=== PATIENT | female | born 1945 | race Caucasian/White ===

== ENCOUNTER 2019-10-01 11:24 | Outpatient (CLI) | payer MEDICARE, SELFPAY ==
--- NOTE | 2019-10-01 11:29 | XR_ITS ---
WS: [id number] PROCEDURE: XR chest 2V* [id number] CLINICAL INFORMATION: COUGH COMPARISON: September 27, 2017 FINDINGS: Heart: Normal cardiac silhouette. Aortic calcification. Lungs: Mild chronic emphysematous changes. No acute pulmonary infiltrates. Calcified granuloma left l ower lobe. Bones: Chronic left posterior rib fractures with callus formation. XR/XR chest 2V* [id number] IMPRESSION: No acute chest findings.
== END 2019-10-01 11:25 | disposition home or self-care (01) ==
LOC: RAD 11:29
PROVIDERS: Family Provider Family Medicine; PCP Family Medicine; Visit Provider Family Medicine
DX: R05 Cough (principal)
CPT/HCPCS: 71046

== ENCOUNTER 2019-12-26 13:09 | Outpatient (CLI) | payer MEDICARE, SELFPAY ==
--- NOTE | 2019-12-26 13:16 | XR_ITS ---
WS: [id number] SHOULDER RIGHT TECHNIQUE: 3 views of the right shoulder CLINICAL INFORMATION: SHOULDER PAIN, RIGHT COMPARISON: None. FINDINGS: Normal acromioclavicular joint. Normal glenohumeral joint. Acromion is normal in appearance. Normal g lenoid. No evidence of acute fracture dislocation. Mild rotator cuff arthropathy. XR/XR shoulder RT min 2V* [id number] IMPRESSION: No acute right shoulder findings. Mild rotator cuff arthropathy.
== END 2019-12-26 13:10 | disposition home or self-care (01) ==
PROVIDERS: Family Provider Family Medicine; PCP Family Medicine; Visit Provider Family Medicine
DX: M25.511 Pain in right shoulder (principal); M12.811 Other specific arthropathies, not elsewhere classified, right shoulder
CPT/HCPCS: 73030

== ENCOUNTER 2020-01-22 12:46 | Outpatient (CLI) | payer MEDICARE, SELFPAY ==
--- NOTE | 2020-01-22 13:00 | MR_ITS ---
WS: [id number] MRI RIGHT SHOULDER HISTORY: M25.511 Pain in right shoulder COMPARISON: Radiographs 12/26/2019 TECHNIQUE: Multiplanar sequences of the shoulder joint are submitted. Increased T2 signal through the AC ligament. There is soft tissue hypertrophy and bone hypertrophy wi th encroachment upon the supraspinatus tendon and muscle over the humeral head. There are large osteo phytes extending towards the rotator cuff. Small amount of fluid in the subacromial and subdeltoid bu rsa. Partial, articular surface tear of the supraspinatus tendon over the humeral head. There is also fray ing of the tendon along the bursal surface. Very mild atrophy without edema in the supraspinatus musc le. Markedly thickened subscapularis tendon but it is intact. Biceps tendon is partially subluxed fro m the bicipital groove and thickened and edematous. No infraspinatus tendon tear. There is a large subscapular recess effusion with loose bodies. Severe degenerative changes involving the humeral head. Loss of cartilage with osteophyte formation and deformity. Marked narrowing of the glenohumeral joint. Normal labrum is not identified. MR/MR shoulder RT wo con* [id number] IMPRESSION: 1. Severe degenerative changes at the shoulder joint. 2. Loss of cartilage with extensive subchondral cystic changes and osteophytes over the humeral head with high riding humeral head. 3. Abnormal glenohumeral joint with loss of the normal labrum and cartilage. 4. Moderate AC joint hypertrophy with encroachment upon the supraspinatus tend on and muscle. 5. Partial articular surface tear supraspinatus tendon over the humeral head. 6. Mild atrophy supraspinatus muscle. 7. Partially subluxed biceps tendon from the bicipital groove. 8. Marked thickening of the subscapularis tendon and very difficult to see dis tally. 9. Large joint effusion with small loose bodies with extension into the subsca pularis recess.
== END 2020-01-22 12:47 | disposition home or self-care (01) ==
LOC: RADSHAW 12:49
PROVIDERS: PCP Family Medicine; Visit Provider Specialist
DX: S46.911A Strain of unspecified muscle, fascia and tendon at shoulder and upper arm level, right arm, initial encounter (principal); X58.XXXA Exposure to other specified factors, initial encounter; M25.411 Effusion, right shoulder
CPT/HCPCS: 73221

== ENCOUNTER 2020-02-23 06:00 | Outpatient (RCR) | payer MEDICARE, SELFPAY | END 2020-03-03 23:59 | disposition home or self-care (01) | LOC: SPT 06:00 | PROVIDERS: PCP Family Medicine; Referring Provider Specialist; Visit Provider Specialist | DX: M19.011 Primary osteoarthritis, right shoulder (principal) | CPT/HCPCS: 97110; 97162 ==

== ENCOUNTER 2020-03-04 06:00 | Outpatient (RCR) | payer MEDICARE, SELFPAY | END 2020-04-03 23:59 | disposition home or self-care (01) | LOC: SPT 06:00 | PROVIDERS: PCP Family Medicine; Referring Provider Specialist; Visit Provider Specialist | DX: M19.011 Primary osteoarthritis, right shoulder (principal) | CPT/HCPCS: 97110 ==

== ENCOUNTER 2020-08-06 10:48 | Outpatient (CLI) | payer MEDICARE, SELFPAY ==
--- NOTE | 2020-08-06 11:01 | XR_ITS ---
WS: [id number] KUB, AP view, 08/06/2020 Clinical Data: ACUTE DIVERTICULITIS Comparison: KUB, 10/18/2017. Findings: There is air in the small bowel and colon but no dilatation. There is fecal material throughout the c olon. No abnormal intra-abdominal masses or calcifications are seen. There are phleboliths in the true pelv is. The bladder is full. XR/XR abdomen 1V* [id number] Impression: Mild generalized ileus.
== END 2020-08-06 10:49 | disposition home or self-care (01) ==
LOC: RAD 10:51
PROVIDERS: PCP Family Medicine; Visit Provider Nurse Practitioner Family
DX: K57.92 Diverticulitis of intestine, part unspecified, without perforation or abscess without bleeding (principal)
CPT/HCPCS: 74018

== ENCOUNTER 2020-08-30 17:44 | Emergency (ER) | payer MEDICARE, SELFPAY ==
[2020-08-30 17:51] VITALS: BP 159/94; PULSE 69; RESP 16; TEMP 36.3; O2SAT 97; BMI 24.2
[2020-08-30 20:03] LABS: Basophils # 0.1 10^3/uL (0.0-0.1); Basophils % 0.7 %; Eosinophils # 0.4 10^3/uL (0.0-0.8); Eosinophils % 4.6 %; Hematocrit 45.5 % (37.0-47.0); Hemoglobin 14.6 g/dL (11.5-15.3); Lymphocytes # 3.2 10^3/uL (0.8-4.8); Lymphocytes % 36.7 %; Mean Corpuscular HGB Conc 32.1 g/dL (30.0-36.0); Mean Corpuscular Hemoglobin 29.3 pg (28.0-34.0); Mean Corpuscular Volume 91.4 fL (81-99); Mean Platelet Volume 9.7 fL (7.4-10.4); Monocytes # 0.5 10^3/uL (0.2-0.9); Monocytes % 5.9 %; Neutrophils # 4.57 10^3/uL (1.8-7.7); Neutrophils % 51.8 %; Nucleated Red Blood Cells % 0 %; Platelet Count 256 10^3/cmm (130-400); Red Blood Count 4.98 10^6/uL (4.1-5.3); Red Cell Distribution Width 12.8 % (12.1-15.1); White Blood Count 8.8 10^3/uL (4.0-10.0)
[2020-08-30 20:19] LABS: Alanine Aminotransferase 13 U/L (0-33); Albumin Level 4.5 g/dL (3.5-5.2); Alkaline Phosphatase 80 IU/L (35-105); Anion Gap 14.2 (5-19); Aspartate Amino Transferase 18 U/L (0-32); Blood Urea Nitrogen 15 mg/dL (8-23); Calcium 9.1 mg/dL (8.5-10.5); Carbon Dioxide 28 mmol/L (22-29); Chloride 105 mmol/L (98-107); Globulin 2.6 g/dL (1.3-4.6); Glucose 92 mg/dL (65-115); Lipase 26 U/L (13-60); Osmolality Calculated 296 mOsm/kg (285-295); Potassium 4.2 mmol/L (3.5-5.1); Sodium 143 mmol/L (136-145); Total Bilirubin 0.5 mg/dL (0.15-1.2); Total Protein 7.1 g/dL (6.6-8.7)
[2020-08-30 22:27] VITALS: PULSE 67; RESP 16; O2SAT 95
--- NOTE | 2020-08-30 22:28 | CTR_ITS ---
PROCEDURE INFORMATION: Exam: CT Abdomen And Pelvis With Contrast Exam date and time: 08/30/2020 10:46 PM Age: 74 years old Clinical indication: Abdominal pain; Generalized; Prior surgery; Surgery type: , appy, hyst, stomach; Patient HX: Abd pain x 3 weeks, recently treated for diverticulitis- meds gave her diarrhea. PT now C/O constipation TECHNIQUE: Imaging protocol: Computed tomography of the abdomen and pelvis with contrast. Radiation optimization: All CT scans at this facility use at least one of these dose optimization techniques: automated exposure control; mA and/or kV adjustment per patient size (includes targeted exams where dose is matched to clinical indication); or iterative reconstruction. Contrast material: OMNI 300; Contrast volume: 95 ml; Contrast route: INTRAVENOUS (IV); COMPARISON: CT abdomen pelvis w con* [id number] 08/31/2017 11:52 AM RADIATION DOSE METRICS: Total DLP (mGy-cm): 1266.56 FINDINGS: Liver: Normal. No mass. Gallbladder and bile ducts: Stable gallstone in the gallbladder. Pancreas: Normal. No ductal dilation. Spleen: Normal. No splenomegaly. Adrenal glands: Normal. No mass. Kidneys and ureters: Normal. No hydronephrosis. Stomach and bowel: Unremarkable. No obstruction. No mucosal thickening. Appendix: No evidence of appendicitis. Intraperitoneal space: Unremarkable. No free air. No significant fluid collection. Vasculature: Calcification of the abdominal aorta and/or iliac arteries consistent with atherosclerotic vessel disease. One or more calcified pelvic phleboliths. Lymph nodes: Unremarkable. No enlarged lymph nodes. Urinary bladder: Unremarkable as visualized. Reproductive: Stable hysterectomy. Bones/joints: Grade 1 anterior non-spondylitic spondylolisthesis of L4 on L5 with central spinal stenosis and prominent facet degenerative changes. Soft tissues: Unremarkable. CT/CT abdomen pelvis w con* [id number] IMPRESSION: Stable gallstone in the gallbladder. Radiation Dose CTDIVOL = (mGy): DLP = 1266.56 (mGy-cm)
--- NOTE | 2020-08-30 22:36 | W.ED.ABDPA2 ---
HPI - Abdominal Pain General: Chief Complaint: Abdominal Pain Stated Complaint: ABD PAIN FOR 3 WKS Time Seen by Provider: 08/30/20 22:27 Source: patient Mode of arrival: ambulatory Limitations: no limitations History of Present Illness: HPI narrative: 74-year-old female states she been having abdominal pain over the last 3 weeks. She states is been diffuse in nature and rates it a 6 out of 10. She states she supposed to have a scheduled outpatient CT but has not been able to get it due to insurance. She has been on 3 of antibiotics for possible diverticulitis but stopped both due to diarrhea. Denies any fever. Denies any worsening improving factors. She is resting comfortably currently. MD elicited complaint: abdominal pain Associated Symptoms: Reports diarrhea; Denies chills, dysuria, fever(s), nausea and vomiting Review of Systems Const: Denies: fever(s), chills, body aches or change in appetite Eyes: Denies: blurry vision or eye discomfort ENMT: Denies: throat pain or dental pain Card: Denies: chest pain Resp: Denies: dyspnea GI: Reports: abdominal pain and diarrhea; Denies: nausea or vomiting : Denies: dysuria Musc: Denies: neck pain or back pain Skin/Breast: Denies: rash Neuro: Denies: headache(s) Psych: Denies: depression Narendra/Lymph: Denies: easy bruising All/Imm: Denies: urticaria PFSH ED PFSH: Medical History (Updated 08/30/20 @ 23:48 by Efrain Yun MD) History of rib fracture Surgical History History of appendectomy History of delivery Family History Mother Cancer Denies family history of Diabetes Stroke Social History Smoking and tobacco status: former smoker Alcohol intake: never Household members: spouse Marital status: Current occupational status: retired Physical Exam Const: COMMON NORMALS: no acute distress, patient oriented x3 and healthy appearing HENMT: COMMON NORMALS: normocephalic and atraumatic HEAD & SCALP: normocephalic and atraumatic Eye: COMMON NORMALS: Equal, round and reactive pupils present and EOMs intact bilaterally PUPIL: Yes Equal, round and reactive pupils present Neck/C-Spine: COMMON NORMALS: full ROM and supple Chest: COMMONS NORMALS: normal inspection of the chest and normal palpation of entire chest wall Resp: COMMON NORMALS: normal respiratory effort, No retractions, No use of accessory muscles and clear to auscultation bilaterally AUSCULTATION: clear to auscultation bilaterally Cardio: COMMON NORMALS: regular rate, regular rhythm and No murmurs present (Cardio) RATE: regular rate RHYTHM: regular rhythm GI: COMMON NORMALS: Normal to inspection, nondistended, normoactive bowel sounds present, Soft to palpation, non-tender and no masses PALPATION: Yes Soft to palpation Extremity: COMMON NORMALS: normal to inspection and full ROM Neuro: COMMON NORMALS: patient oriented x3, moves all extremities and no focal motor deficits Psych: COMMON NORMALS: mental status grossly normal, Normal thought process present and cooperative THOUGHT PROCESS: Normal thought process present Skin: COMMON NORMALS: no rashes or lesions noted and no wounds GENERAL SKIN EXAM: no rashes or lesions noted Course Vital Signs: Vital signs: Vital Signs Temperature 97.3 F L 08/30/20 17:51 Pulse Rate 61 08/30/20 23:00 Respiratory Rate 16 08/30/20 23:13 Blood Pressure 158/83 08/30/20 23:00 Pulse Oximetry 96 08/30/20 23:00 MDM - Abdominal Pain MDM Narrative: Medical decision making narrative: Patient presents with abdominal pain does have a gallstone that could be causing her pain. She has no acute surgical issue. Her blood work here is normal. Abdominal exam at discharge is benign. We will get her follow-up with Dr. Jordan and she is stable for discharge. She is to return if worsening. She understands and agrees to the plan. Lab Data: Labs: Lab Results 08/30/20 08/30/20 Range/Units 19:55 19:55 WBC 8.8 (4.0-10.0) 10^3/ uL RBC 4.98 (4.1-5.3) 10^6/u L Hgb 14.6 (11.5-15.3) g/dL Hct 45.5 (37.0-47.0) % MCV 91.4 (81-99) fL MCH 29.3 (28.0-34.0) pg MCHC 32.1 (30.0-36.0) g/dL RDW 12.8 (12.1-15.1) % Plt Count 256 (130-400) 10^3/c mm MPV 9.7 (7.4-10.4) fL Neut % (Auto) 51.8 % Lymph % (Auto) 36.7 % Nicollet % (Auto) 5.9 % Eos % (Auto) 4.6 % Baso % (Auto) 0.7 % Neut # (Auto) 4.57 (1.8-7.7) 10^3/u L Lymph # (Auto) 3.2 (0.8-4.8) 10^3/u L Nicollet # (Auto) 0.5 (0.2-0.9) 10^3/u L Eos # (Auto) 0.4 (0.0-0.8) 10^3/u L Baso # (Auto) 0.1 (0.0-0.1) 10^3/u L Nucleated RBC % (a uto) 0 % Nucleated RBCs # 0.0 /100WBC Sodium 143 (136-145) mmol/L Potassium 4.2 (3.5-5.1) mmol/L Chloride 105 (98-107) mmol/L Carbon Dioxide 28 (22-29) mmol/L Anion Gap 14.2 (5-19) BUN 15 (8-23) mg/dL Creatinine 0.8 (0.5-0.9) mg/dL GFR Calculation Not Reportable Glucose 92 (65-115) mg/dL Calculated Osmolal ity 296 H (285-295) mOsm/k g Calcium 9.1 (8.5-10.5) mg/dL Total Bilirubin 0.5 (0.15-1.2) mg/dL AST 18 (0-32) U/L ALT 13 (0-33) U/L Alkaline Phosphata se 80 (35-105) IU/L Total Protein 7.1 (6.6-8.7) g/dL Albumin 4.5 (3.5-5.2) g/dL Globulin 2.6 (1.3-4.6) g/dL Lipase 26 (13-60) U/L Imaging Data ^: CT Abd/Pel: Attestation: I personally reviewed and interpreted this imaging study as follows: Radiologist's impression: [address] [place] [address] CT Scan Report Signed Patient: May Santana Unit #: [id number] : 1945 Age/Sex: 74 / F ADM Date: 08/30/20 Loc: ER Room/Bed: Attending Dr: Ordering Provider/Ordering MD: Efrain uYn MD Date of Service: 08/30/20 Procedure(s): CT abdomen pelvis w con* [id number] Accession Number(s): [id number] Report Number: [id number] PROCEDURE INFORMATION: Exam: CT Abdomen And Pelvis With Contrast Exam date and time: 08/30/2020 10:46 PM Age: 74 years old Clinical indication: Abdominal pain; Generalized; Prior surgery; Surgery type: , appy, hyst, stomach; Patient HX: Abd pain x 3 weeks, recently treated for diverticulitis- meds gave her diarrhea. PT now C/O constipation TECHNIQUE: Imaging protocol: Computed tomography of the abdomen and pelvis with contrast. Radiation optimization: All CT scans at this facility use at least one of these dose optimization techniques: automated exposure control; mA and/or kV adjustment per patient size (includes targeted exams where dose is matched to clinical indication); or iterative reconstruction. Contrast material: OMNI 300; Contrast volume: 95 ml; Contrast route: INTRAVENOUS (IV); COMPARISON: CT abdomen pelvis w con* [id number] 08/31/2017 11:52 AM RADIATION DOSE METRICS: Total DLP (mGy-cm): 1266.56 FINDINGS: Liver: Normal. No mass. Gallbladder and bile ducts: Stable gallstone in the gallbladder. Pancreas: Normal. No ductal dilation. Spleen: Normal. No splenomegaly. Adrenal glands: Normal. No mass. Kidneys and ureters: Normal. No hydronephrosis. Stomach and bowel: Unremarkable. No obstruction. No mucosal thickening. Appendix: No evidence of appendicitis. Intraperitoneal space: Unremarkable. No free air. No significant fluid collection. Vasculature: Calcification of the abdominal aorta and/or iliac arteries consistent with atherosclerotic vessel disease. One or more calcified pelvic phleboliths. Lymph nodes: Unremarkable. No enlarged lymph nodes. Urinary bladder: Unremarkable as visualized. Reproductive: Stable hysterectomy. Bones/joints: Grade 1 anterior non-spondylitic spondylolisthesis of L4 on L5 with central spinal stenosis and prominent facet degenerative changes. Soft tissues: Unremarkable. CT/CT abdomen pelvis w con* [id number] IMPRESSION: Stable gallstone in the gallbladder. Discharge Plan Discharge Patient Disposition: Home Clinical Impression: Abdominal pain Qualifiers: Abdominal location: generalized Qualified Code(s): R10.84 - Generalized abdominal pain Condition: Stable Prescriptions: New hydrocodone-acetaminophen 5-325 mg tablet 1 tab PO Q6H PRN (Reason: pain) Qty: 14 RF: 0 ondansetron 4 mg tablet,disintegrating 4 mg PO Q6H PRN (Reason: nausea and vomiting) Qty: 14 RF: 0 No Action meloxicam 15 mg tablet 15 mg PO DAILY Qty: 30 RF: 2 Discharge Orders: Discharge ED (Routine); Ordered 08/30/20 Ordered By: Efrain Yun Referrals: Lois Bran MD [Primary Care Provider] - Julio Jordan MD [Physician] - 1-3 days Discharge Diet: Advance as tolerated Discharge Activity: Resume usual activity Patient Instructions: Abdominal Pain (ED), Opioid Safety Coding Level of Care Code ED Learning Operations Specialist for Chg Fwd Exam Comprehensive
[2020-08-30 22:57] VITALS: BP 158/83; PULSE 61; RESP 16; O2SAT 94
[2020-08-30 23:00] VITALS: BP 158/83; PULSE 61; RESP 16; O2SAT 96
[2020-08-30] MEDS: iohexol 300 mg/mL 100 mL Btl IV (23:06)
[2020-08-30 23:13] VITALS: RESP 16
[2020-08-30] MEDS: ondansetron 2 mg/ML SDV 2 mL 4 MG IVP (23:13)
[2020-08-30] MEDS: morphine 4 mg/mL SDV 1 mL IVP (23:13)
[2020-08-30 23:56] LABS: Add Urine Microscopic? YES; Bilirubin Urine Neg (Negative); Blood Urine Neg (Negative); Glucose Urine UA Norm (Normal); Ketones Urine Negative (Negative); Leukocyte Esterase Urine 1+ (Negative); Nitrate Urine Negative (Negative); Protein Urine Neg (Negative); Urine Appearance Clear (CLEAR); Urine Color Yellow (Yellow); Urobilinogen Urine Norm (Negative); pH Urine 6.5 (5-7)
[2020-08-31 00:03] VITALS: BP 124/89; PULSE 78; RESP 16; O2SAT 100
[2020-08-31 00:18] LABS: Add Urine Culture? No; Squamous Epithelial Cell Urine 0-4 /hpf (0-5); WBC Urine 0-4 /hpf (0-5)
[2020-08-31 01:12] LABS: Bacteria Urine TRACE /hpf
--- NOTE | 2020-08-31 09:22 | DCPLANNER ---
rn case manager had message to schedule a follow up appointment for patient with Dr. Jordan at [facility] general surgery. rn case manager emailed patients information to both Kate and Lois at [facility] General Surgery. Patients information will be printed and reviewed. Clinic will call patient with appointment information.
--- NOTE | 2020-09-07 08:03 | DCPLANNER ---
Patient had a follow up appointment scheduled for 09.03.[address] Jordan at [facility] General Surgery - patient did attend appointment.
== END 2020-08-31 00:04 | disposition home or self-care (01) ==
PROVIDERS: Nurse Practitioner Family; Emergency Provider Emergency Medicine; PCP Family Medicine
DX: R10.84 Generalized abdominal pain (principal); Z87.891 Personal history of nicotine dependence
CPT/HCPCS: 74177; 80053; 81001; 83690; 85025; 96374; 96375; 99283; J2270; J2405; Q9967

== ENCOUNTER → 2020-09-10 12:24 | Outpatient (BNVA) | payer MEDICARE, SELFPAY | PROVIDERS: PCP Family Medicine; Visit Provider Surgery | DX: Z20.828 Contact with and (suspected) exposure to other viral communicable diseases (principal) | CPT/HCPCS: 87635 ==

== ENCOUNTER 2020-09-15 08:34 | Day surgery (SDC) | payer MEDICARE, SELFPAY ==
[2020-09-14 09:24] VITALS: BMI 24.2
[2020-09-15] VITALS (7 sets, daily range): BP systolic 118–159; BP diastolic 65–90; PULSE 60–85; RESP 12–20; TEMP 36.4–36.6; O2SAT 94–97
[2020-09-15] MEDS: sodium chloride 0.9% 1,000 ML 30 ML IV (09:03)
--- NOTE | 2020-09-15 09:25 | W.PM.OPSUD ---
Surgery/Procedure H&P Update DATE OF PROCEDURE: September 15, 2020 DATE H&P PERFORMED: 09/03/20 H&P UPDATE INFORMATION: I have reviewed H&P completed within last 30 days, I have examined patient prior to procedure and No changes to prior documentation PREOP DIAGNOSIS: Cholelithiasis PLANNED PROCEDURE: Operation Date: 09/15/20 10:15 Proposed Procedures p Laparoscopic possible open Cholecystectomy 96673 k80.20(Not Applicable) - Julio Jordan MD
--- NOTE | 2020-09-15 09:26 | ANES.PREANE2 ---
Pre-Anesthetic Assessment Pre-Anesthetic Assessment: Height/Weight: Height 1.68 m Weight 68.039 kg Temp Pulse Resp BP Pulse Ox 97.6 F 85 16 133/71 97 09/15/20 08:52 09/15/20 08:52 09/15/20 08:52 09/15/20 08:52 09/15/20 08:52 Preop Diagnosis: Cholelithiasis Proposed Procedure: Operation Date: 09/15/20 10:15 Proposed Procedures p Laparoscopic possible open Cholecystectomy 36195 k80.20(Not Applicable) - Julio Jordan MD Was Beta Isabel taken within 24 hours: N/A Was Clonidine taken within 24 hours: N/A Last intake: Intake Last Liquid Date 09/14/20 Last Liquid Time 23:55 Last Solid Date 09/14/20 Last Solid Time 19:00 Social: Social History: No alcohol and No tobacco Exam: Pre-Anes Outpt Exam: alert, oriented x 3, clear to auscultation bilaterally and regular rate & rhythm Airway: Submandibular: WNL Cervical ROM: WNL MP: 2 Dentition: Full History/ROS: No significant history except as noted GI: Comments: Acute isaiah Musc/skel: Musc/skel: OA/DJD Anesthetic Plan: ASA status: 2 Anesthesia: General Risk of > 500 ml blood loss (7ml/kg in children): No Meds/Allergies Current Medications: Current Medications Generic Name Dose Route Start Last Admin Trade Name Freq PRN Reason Stop Dose Admin Sodium Chloride 1,000 mls @ 30 ml s/hr 09/15/20 09:00 09/15/20 09:03 Sodium Chloride 0.9% IV 09/16/20 08:59 30 mls/hr .Q24H SUE Administration PFSH Anesthesia PFSH: Medical History (Updated 09/08/20 @ 00:00 by ) Diaphragm, rupture History of rib fracture Surgical History (Updated 09/03/20 @ 17:50 by Julio Jordan MD) History of appendectomy History of delivery History of colonoscopy 2014 History of hysterectomy 1989 S/P laparotomy For traumatic diaphragmatic rupture Family History Mother Cancer Denies family history of Diabetes Stroke Social History Smoking and tobacco status: former smoker Alcohol intake: never Household members: spouse Marital status: Current occupational status: retired Data Anesthesia Cardiac Studies: No Data to Display
--- NOTE | 2020-09-15 11:10 | PM.OP ---
Operative Report Date of procedure: September 15, 2020 Pre-op Diagnosis: Cholelithiasis Post-op diagnosis: same Procedure Done: Laparoscopic cholecystectomy Specimens removed/disposition: gallbladder Surgeon: Julio Jordan Anesthesia: General Condition: stable Disposition: PACU Procedure: The patient was taken to the operating room and was intubated under general anesthesia. After the antibiotic had been administered, the abdomen was prepped and draped in a sterile manner. Using a #15 blade, a 1 centimeter incision was made in the midclavicular line on the right side under the costal margin and using an open Gina technique the peritoneal cavity was entered. A 10 millimeter port was placed and 15 millimeters of pneumoperitoneum was created. A 10 millimeter, 30 degrees scope was then introduced. Three 5 millimeter ports were placed in the epigastric, adjacent to the umbilicus and the anterior axillary line two fingerbreadths below the costal margin on the right side under the direct visualization due to adhesions in the midline from prior laparotomy. Ratcheted forceps were introduced into the lateral most port and was used to retract the fundus of the gallbladder cephalad and using forceps the infundibulum of the gallbladder was retracted laterally. Using L-hook cautery the peritoneum overlying the Calot's triangle was opened medially and laterally until the cystic duct and the cystic artery were skeletonized. Dissection was carried along the body of the gallbladder and after ensuring critical view of safety, 4 clips applied on the cystic duct and 3 clips applied on the cystic artery and cut leaving, 3 clips on the remaining portion of the duct and 2 clips on the remaining portion of the artery. The rest of the gallbladder was dissected off the liver using L-hook cautery. There was no bleeding or bile leaking noted from the gallbladder fossa and the clips appeared to be in place. An EndoCatch bag was introduced to remove the gallbladder. All the ports were removed under direct visualization and there was no bleeding noted from the port sites. The fascia of the umbilicus was closed using [id number] 0 Vicryl sutures and the subcutaneous tissue was approximated using 3-0 Vicryl sutures. The skin at all four ports were closed using 4-0 Monocryl and Dermabond. A total of 10 millimeters of 0.5% Marcaine was infiltrated around the port sites. The patient was stable throughout the procedure.
--- NOTE | 2020-09-15 11:14 | SUR.PHASEII ---
Patient A&O x 3 just having a slow process of waking up.
[2020-09-15] MEDS: HYDROcodone-acetaminophen 5-325 mg Tablet 1 TAB PO (11:40)
--- NOTE | 2020-09-15 13:58 | ANE.PACU2 ---
Inpatient post-anesthesia follow up: Airway intact: Yes Vital signs: Temperature 97.5 F Pulse Rate 60 Respiratory Rate 18 Blood Pressure 118/65 Pulse Oximetry 95 Oxygen Delivery Me thod Room Air Oxygen Flow Rate Fraction of Inspir ed Oxygen Hydration adequate: Yes Nausea and vomiting: No Pain level: 2 Mental status: Baseline
== END 2020-09-15 12:12 | disposition home or self-care (01) ==
PROVIDERS: PCP Family Medicine; Visit Provider Surgery
PROC: 0FT44ZZ Resection of Gallbladder, Percutaneous Endoscopic Approach (ICD-10-PCS; CPT 47562; principal; 2020-09-15 10:05)
DX: K80.10 Calculus of gallbladder with chronic cholecystitis without obstruction (principal); M19.90 Unspecified osteoarthritis, unspecified site; Z87.891 Personal history of nicotine dependence
CPT/HCPCS: 47562; 88304; J0690; J1100; J2250; J2405; J2704; J2710; J3010; J3490; J7030

== ENCOUNTER 2021-02-17 09:08 | Outpatient (CLI) | payer MEDICARE, SELFPAY ==
--- NOTE | 2021-02-17 09:15 | MR_ITS ---
WS: [id number] MRI FACE AND NECK without CONTRAST. COMPARISON: None Multiplanar, multisequence imaging is performed without contrast. History: Right-sided facial, eye, ear, jaw and headache pain. Noncontrast examination is performed. There are no signal abnormalities identified. Symmetric appeara nce of the face and neck with no asymmetry or adenopathy. There is no increase fluid along the international affairs vice president al or external auditory canals. Parapharyngeal fat is normal. Visualized parotid glands and submandib ular glands are normal. No mass at the cerebellopontine angle. Largest lymph node at level IIa is 6 m m. Mild degenerative disc disease with osteophytes and disc protrusions at C4-5, C5-6 and C6-7. There is mild disc contact on the ventral cervical cord at C5-6 and C6-7. MR/[place] [id number] IMPRESSION: 1. No signal abnormalities or mass noted within the face and neck. 2. Cervical stenosis at C5 and C6 with disc contact on the ventral cord.
== END 2021-02-17 09:09 | disposition home or self-care (01) ==
LOC: RADSHAW 09:13
PROVIDERS: PCP Family Medicine; Visit Provider Specialist
DX: G50.1 Atypical facial pain (principal); H65.01 Acute serous otitis media, right ear; M48.02 Spinal stenosis, cervical region
CPT/HCPCS: 70336

== ENCOUNTER 2021-06-07 10:44 | Outpatient (CLI) | payer MEDICARE, SELFPAY ==
--- NOTE | 2021-06-07 10:52 | MM_ITS ---
WS: [id number] BILATERAL SCREENING DIGITAL MAMMOGRAM WITH CAD HISTORY: SCREENING COMPARISON: 02/12/2019 at 01/22/2018 Bilateral CC and MLO views submitted. Computer aided detection analyzed. Breast composition: There are scattered areas of fibroglandular density. No suspicious masses, microc alcifications or architectural distortion. Benign calcifications in each breast. MM/[place] [id number] IMPRESSION: BI-RADS: 2-Benign FOLLOW UP: 1 Year Follow-up
== END 2021-06-07 10:45 | disposition home or self-care (01) ==
PROVIDERS: PCP Family Medicine; Visit Provider Family Medicine
DX: Z12.31 Encounter for screening mammogram for malignant neoplasm of breast (principal)
CPT/HCPCS: 77067

== ENCOUNTER 2021-09-06 11:48 | Emergency (ER) | payer MEDICARE, SELFPAY ==
[2021-09-06 11:52] VITALS: BP 142/84; PULSE 74; RESP 16; TEMP 36.9; O2SAT 96; BMI 25.0
--- NOTE | 2021-09-06 12:07 | XR_ITS ---
WS: [id number] XR chest 1V portable [id number] REASON FOR EXAM: chest pain FINDINGS: Chest is unchanged compared to 10/01/2019. Mild to moderate tortuosity the thoracic aorta without aneu rysmal dilatation. Normal heart size. Elevation of the left hemidiaphragm. Calcified granulomatous disease in both hemithoraces. No acute pulmonary parenchymal or pleural abnormality. Mild degenerative spondylosis in the mid and lower thoracic spine. Old healed rib fractures on the le ft. XR/XR chest 1V portable [id number] IMPRESSION: Stable chest with no acute abnormality.
--- NOTE | 2021-09-06 12:07 | ECG_ITS ---
[facility] Test Date: 2021-09-06 Pat Name: May Santana Department: Room: Gender: Female Outpatient Coordinator: : 1945 Requested By: Po Serra Order Number: [id number] Rafia MD: Tanisha Campbell M.D. Measurements Intervals [place] Rate: 76 P: 50 NH: 151 QRS: 36 QRSD: 130 T: 18 QT: 392 QTc: 442 Interpretive Statements SINUS RHYTHM POSSIBLE LEFT ATRIAL ENLARGEMENT [-0.1mV P-WAVE IN V1/V2] RIGHT BUNDLE BRANCH BLOCK [120+ ms QRS DURATION, UPRIGHT V1, 40+ ms S IN I/aVL/V4/V5/V6] INTERPRETATION BASED ON A DEFAULT AGE OF 40 YEARS Compared to ECG 09/27/2017 16:35:19 Myocardial infarct finding no longer present Electronically Signed On 09-06-2021 22:43:45 CDT by Tanisha Campbell M.D. [id number]
[2021-09-06 12:24] VITALS: BP 122/88; PULSE 71; RESP 16; O2SAT 97
--- NOTE | 2021-09-06 12:26 | W.ED.CHESTPA ---
HPI - Chest Pain General: Chief Complaint: Chest Pain Stated Complaint: chest pain / weakness / dizziness Time Seen by Provider: 09/06/21 11:54 Source: patient Mode of arrival: ambulatory Limitations: no limitations History of Present Illness: 75-year-old female presents emergency room complaining of chest pain for last 2 days describes it more as a heaviness is woken her up last 2 nights while she is sleeping she gets a little bit diaphoretic prominent no nausea or vomiting she has not noticed anything that exacerbates or worsen it she states the discomfort lasted throughout the day since it first began 2 nights ago. She has no known history of coronary disease several years ago (8-10) she had an episode of chest pain had a stress test was reported as negative. Patient does not smoke she is not hypertensive and is not diabetic she does have a history of hyperlipidemia. MD complaint: chest heaviness Onset (ago): day(s) (2) Timing of current episode: constant Prior episodes: No Onset: during rest Pain location: left chest Pain radiation: none Severity: mild Quality: aching and heaviness Associated symptoms: Reports diaphoresis and dyspnea; Deny abdominal pain, fever(s), leg edema, nausea, palpitations, sense of impending doom, syncope or vomiting Treatment prior to arrival: none Review of Systems Const: Reports: diaphoresis; Denies: fever(s) ENMT: Denies: throat pain, ear or mastoid pain, nasal discharge or nasal congestion Card: Reports: chest pain; Denies: palpitations or syncope Resp: Reports: dyspnea GI: Denies: abdominal pain, nausea or vomiting : Denies: flank pain, difficulty voiding, dysuria, urinary frequency or urinary urgency Skin/Breast: Denies: rash or pruritus PFSH ED PFSH: Medical History Diaphragm, rupture History of rib fracture Surgical History History of appendectomy History of delivery History of colonoscopy 2014 History of hysterectomy 1990 S/P laparotomy For traumatic diaphragmatic rupture Status post laparoscopic cholecystectomy (09/15/20) Family History Mother Cancer lung cancer that spread Denies family history of Diabetes CAD (coronary artery disease) Clotting disorder Hyperlipidemia Chronic kidney disease (CKD) Bleeding disorder Hypertension Stroke Social History Smoking and tobacco status: former smoker Alcohol intake: never Household members: spouse Marital status: Current occupational status: retired Physical Exam Const: COMMON NORMALS: no acute distress GENERAL APPEARANCE: cooperative and comfortable ORIENTATION/CONSCIOUSNESS: Yes awake, Yes oriented to person, Yes oriented to place and Yes oriented to time HENMT: COMMON NORMALS: normocephalic, atraumatic and hearing grossly normal bilaterally HEAD & SCALP: normocephalic and atraumatic Neck/C-Spine: COMMON NORMALS: no JVD Resp: COMMON NORMALS: normal respiratory effort, No retractions, No use of accessory muscles and clear to auscultation bilaterally AUSCULTATION: clear to auscultation bilaterally Cardio: COMMON NORMALS: no JVD, regular rate, regular rhythm and No murmurs present (Cardio) RATE: regular rate RHYTHM: regular rhythm GI: COMMON NORMALS: Soft to palpation and No hepatosplenomegaly present AUSCULTATION: Yes normoactive bowel sounds PALPATION: Yes Soft to palpation, No Tenderness to palpation present (GI), No Guarding due to palpation present (GI) and Yes No hepatosplenomegaly present Extremity: COMMON NORMALS: normal to inspection, capillary refill normal, no clubbing, cyanosis or edema, no calf tenderness and no pedal edema Neuro: SENSORIUM/ORIENTATION: Yes oriented to person, Yes oriented to place and Yes oriented to time Skin: COMMON NORMALS: no rashes or lesions noted GENERAL SKIN EXAM: no rashes or lesions noted Course Vital Signs: Vital signs: Vital Signs Temperature 98.5 F 09/06/21 11:52 Pulse Rate 75 09/06/21 13:06 Respiratory Rate 16 09/06/21 13:06 Blood Pressure 140/90 09/06/21 13:06 Pulse Oximetry 95 09/06/21 13:06 MDM - Chest Pain Medical Decision Making EKG and troponins are negative. Written discharge patient home on pantoprazole also add isosorbide mononitrate and baby aspirin daily set up for an outpatient Lexiscan sestamibi stress test. Avoid exertional activities follow-up with primary care doc once this is complete return if she has recurrent or worsening problems. Medical Records I reviewed the patient's medical records. Lab Data I reviewed the patient's lab results. : 09/06/21 12:32 09/06/21 12:32 Radiology Impressions Chest X-Ray 09/06/21 12:07 IMPRESSION: Stable chest with no acute abnormality. Laboratory Results WBC 8.5 10^3/uL (4.0-10.0) 09/06/21 12:32 RBC 4.95 10^6/uL (4.1-5.3) 09/06/21 12:32 Hgb 14.5 g/dL (11.5-15.3) 09/06/21 12:32 Hct 44.3 % (37.0-47.0) 09/06/21 12:32 MCV 89.5 fl (81-99) 09/06/21 12:32 MCH 29.3 pg (28.0-34.0) 09/06/21 12: MCHC 32.7 g/dL (30.0-36.0) 09/06/21 12:32 RDW 12.7 % (12.1-15.1) 09/06/21 12:32 Plt Count 272 10^3/cmm (130-400) 09/06/21 12:32 MPV 9.9 fL (7.4-10.4) 09/06/21 12:32 Neut % (Auto) 56.3 % 09/06/21 12:32 Lymph % (Auto) 31.9 % 09/06/21 12:32 Preston % (Auto) 7.7 % 09/06/21 12:32 Eos % (Auto) 3.4 % 09/06/21 12:32 Baso % (Auto) 0.5 % 09/06/21 12:32 Neut # (Auto) 4.80 10^3/uL (1.8-7.7) 09/06/21 12:32 Lymph # (Auto) 2.7 10^3/uL (0.8-4.8) 09/06/21 12:32 Preston # (Auto) 0.7 10^3/uL (0.2-0.9) 09/06/21 12:32 Eos # (Auto) 0.3 10^3/uL (0.0-0.8) 09/06/21 12:32 Baso # (Auto) 0.0 10^3/uL (0.0-0.1) 09/06/21 12:32 Nucleated RBC % (auto) 0 % 09/06/21 12:32 Nucleated RBCs # 0.0 /100WBC 09/06/21 12:32 Sodium 139 mmol/L (136-145) 09/06/21 12:32 Potassium 4.3 mmol/L (3.5-5.1) 09/06/21 12:32 Chloride 104 mmol/L (98-107) 09/06/21 12:32 Carbon Dioxide 22 mmol/L (22-29) 09/06/21 12:32 Anion Gap 17.3 (5-19) 09/06/21 12:32 BUN 14 mg/dL (8-23) 09/06/21 12:32 Creatinine 0.8 mg/dL (0.5-0.9) 09/06/21 12:32 GFR Calculation Not Reportable 09/06/21 12:32 Glucose 93 mg/dL (65-115) 09/06/21 12:32 Calculated Osmolality 288 mOsm/kg (285-295) 09/06/21 12:32 Calcium 9.2 mg/dL (8.5-10.5) 09/06/21 12:32 Total Bilirubin 0.4 mg/dL (0.15-1.2) 09/06/21 12:32 AST 17 U/L (0-32) 09/06/21 12:32 ALT 11 U/L (0-33) 09/06/21 12:32 Alkaline Phosphatase 100 IU/L (35-105) 09/06/21 12:32 Troponin T Baseline 16 ng/L (0-10) H 09/06/21 12:32 Troponin T 120 Minute 14.53 ng/L (0-10) H 09/06/21 14:34 Delta Troponin T -1.47 ABS# (0-10) L 09/06/21 14:34 Total Protein 6.3 g/dL (6.6-8.7) L 09/06/21 12:32 Albumin 4.4 g/dL (3.5-5.2) 09/06/21 12:32 Globulin 1.9 g/dL (1.3-4.6) 09/06/21 12:32 Discharge Plan Discharge Patient Disposition: Home Clinical Impression: Atypical chest pain, Chest pain Condition: Stable Prescriptions: New aspirin 81 mg tablet,delayed release (DR/EC) 81 mg PO DAILY Qty: 30 0RF isosorbide mononitrate 30 mg tablet extended release 24 hr 30 mg PO DAILY Qty: 30 0RF pantoprazole 40 mg tablet,delayed release (DR/EC) 40 mg PO DAILY 56 Days Qty: 60 0RF No Action meloxicam 15 mg tablet 15 mg PO DAILY Qty: 30 2RF Rx Instructions: Take 1 tablet daily. estradiol [Estrace] 0.01 % (0.1 mg/gram) cream 0.5 g vaginal BID Qty: 42.5 3RF Rx Instructions: for 14 days then twice weekly Vitamin C 100 mg Tablet 100 mg PO DAILY 0RF zinc 50 mg Tablet 50 mg PO BID 0RF Vitamin D3 25 mcg (1,000 unit) Capsule 25 mcg PO DAILY 0RF Discharge Orders: Discharge ED (Routine); Ordered 09/06/21 Ordered By: Po Logan Referrals: Lois Bran MD [Primary Care Provider] - Discharge Diet: Usual diet Discharge Activity: Limit activity as instructed Patient Instructions: Opioid Safety Activity Restrictions/Additional Instructions: No exertional activities. Case management migraines. Outpatient Roque sestamikim stress test Coding Level of Care Code ED Intelligence Officer Basic for Don Fwd Exam Comprehensive
[2021-09-06 12:42] LABS: Basophils % 0.5 %; Eosinophils # 0.3 10^3/uL (0.0-0.8); Eosinophils % 3.4 %; Hematocrit 44.3 % (37.0-47.0); Hemoglobin 14.5 g/dL (11.5-15.3); Lymphocytes # 2.7 10^3/uL (0.8-4.8); Lymphocytes % 31.9 %; Mean Corpuscular HGB Conc 32.7 g/dL (30.0-36.0); Mean Corpuscular Hemoglobin 29.3 pg (28.0-34.0); Mean Corpuscular Volume 89.5 fl (81-99); Mean Platelet Volume 9.9 fL (7.4-10.4); Monocytes # 0.7 10^3/uL (0.2-0.9); Monocytes % 7.7 %; Neutrophils % 56.3 %; Nucleated Red Blood Cells % 0 %; Platelet Count 272 10^3/cmm (130-400); Red Blood Count 4.95 10^6/uL (4.1-5.3); Red Cell Distribution Width 12.7 % (12.1-15.1); White Blood Count 8.5 10^3/uL (4.0-10.0)
[2021-09-06 13:06] VITALS: BP 140/90; PULSE 75; RESP 16; O2SAT 95
[2021-09-06 13:06] LABS: Alanine Aminotransferase 11 U/L (0-33); Albumin Level 4.4 g/dL (3.5-5.2); Alkaline Phosphatase 100 IU/L (35-105); Anion Gap 17.3 (5-19); Aspartate Amino Transferase 17 U/L (0-32); Blood Urea Nitrogen 14 mg/dL (8-23); Calcium 9.2 mg/dL (8.5-10.5); Carbon Dioxide 22 mmol/L (22-29); Chloride 104 mmol/L (98-107); Globulin 1.9 g/dL (1.3-4.6); Glucose 93 mg/dL (65-115); Osmolality Calculated 288 mOsm/kg (285-295); Potassium 4.3 mmol/L (3.5-5.1); Sodium 139 mmol/L (136-145); Total Bilirubin 0.4 mg/dL (0.15-1.2); Total Protein 6.3 g/dL (6.6-8.7)
[2021-09-06 13:07] LABS: Troponin(5th) Baseline 16 ng/L (0-10)
--- NOTE | 2021-09-06 14:07 | ECG_ITS ---
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 Measurements Intervals Newcomb Rate: 62 P: 50 OR: 176 QRS: 52 QRSD: 125 T: 37 QT: 429 QTc: 436 Interpretive Statements SINUS RHYTHM RIGHT BUNDLE BRANCH BLOCK [120+ ms QRS DURATION, UPRIGHT V1, 40+ ms S IN I/aVL/V4/V5/V6] POSSIBLE SEPTAL MYOCARDIAL INFARCTION , OF INDETERMINATE AGE [30 ms Q WAVE IN V1/V2] Compared to ECG 09/06/2021 11:59:24 Myocardial infarct finding now present Electronically Signed On 09-06-2021 23:00:46 CDT by Tanisha Campbell M.D. [id number]
[2021-09-06 15:00] LABS: Troponin 5 2HR 14.53 ng/L (0-10)
[2021-09-06 15:02] LABS: Troponin 5 2HR Delta -1.47 ABS# (0-10)
[2021-09-06 15:54] VITALS: BP 127/80; PULSE 79; RESP 16; O2SAT 97
--- NOTE | 2021-09-07 12:58 | DCPLANNER ---
Addendum entered by Mell Friedman 09/07/21 13:04: This was charted on wrong patient Original Note: post manager had message to schedule a follow up appointment for patient with Dr. Gupta. post manager faxed patients information to the office of Dr. Gupta for review. Clinic will call patient with appointment information.
--- NOTE | 2021-09-07 13:24 | DCPLANNER ---
Addendum entered by Mell Friedman 10/28/21 18:50: This appointment was cancelled. Addendum entered by Mell Friedman 10/06/21 22:04: Patient has an outpatient stress test scheduled for Thursday, October 28, 2021 at 1:00. Centralized scheduling will call patient with appointment information. Original Note: education and training manager had message to schedule an outpatient stress test for patient. education and training manager spoke with patient, to confirm that patient still wanted the stress test and to confirm who patient sees for primary care. Patient stated that she did want the stress test ordered and that she sees Lois Bran for primary care. education and training manager faxed signed order to centralized scheduling, who will call patient with appointment information.
== END 2021-09-06 15:57 | disposition home or self-care (01) ==
PROVIDERS: Emergency Provider Family Medicine; PCP Family Medicine
DX: R07.89 Other chest pain (principal); Z87.891 Personal history of nicotine dependence
CPT/HCPCS: 36415; 71045; 80053; 84484; 85025; 93005; 99283

== ENCOUNTER 2022-04-05 09:45 | Outpatient (CLI) | payer MEDICARE, SELFPAY ==
--- NOTE | 2022-04-05 09:57 | MR_ITS ---
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 TECHNIQUE: Sagittal and axial multisequence imaging is submitted. Moderate spondylitic changes in the cervical spine. Osteophytes and disc encroachment upon the centra l canal. There is a small amount of increased signal in the cervical cord at C5-6 which may represent myelomalacia. Mild curvature of the lumbar spine. 3 mm anterolisthesis of L3 and L4. Schmorl's nodes defects along the superior endplates of L3 and L4. No acute fractures or marrow edema. Mild disc space desiccation throughout with significant loss of height. Conus terminates normally at L1-2 disc level. L1-L2: Mild disc bulging with mild facet and ligamentum flavum arthritis. Very mild foraminal narrowi ng. L2-L3: Diffuse annular disc bulging and osteophytic ridging. Severe ligamentum flavum and facet arthr itis. Small amount of fluid in the facet joints. There is significant encroachment into the central c anal and subarticular recesses and foramina. Moderate to severe central and bilateral subarticular re cess stenosis. Moderate bilateral foraminal stenosis. Most significant encroachment with deformity up on the traversing L3 nerve roots. L3-L4: Diffuse annular disc bulging and osteophytic ridging. Severe ligamentum flavum and facet arthr itis. Encroachment into the thecal sac with deformity. Severe central, bilateral subarticular recess and moderate bilateral foraminal stenosis. There is encroachment and stenosis involving both the L3 a nd L4 nerve roots. L4-L5: Marked annular disc bulging with small osteophytes. Severe ligamentum flavum and facet disease . Fluid in the facet joints with mild widening. Moderate central and bilateral foraminal stenosis wit h severe subarticular recess stenosis. L5-S1: Mild disc bulging with ligamentum flavum and facet arthritis. Fluid in the facet joints bilate rally. There is encroachment upon the S1 nerve roots bilaterally with mild bilateral foraminal stenos is. 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 MR/MR lumbar spine wo con* [id number] IMPRESSION: 1. Severe central, bilateral subarticular recess and moderate foraminal stenos is at L3-4. Multifactorial stenoses with encroachment upon the L3 and L4 nerve roots. 2. Moderate central and bilateral foraminal stenosis with severe subarticular recess stenosis at L4-5. Significant encroachment upon the traversing L5 nerve roots. Widening and fluid in the facet joints bilaterally. 3. Moderate bilateral subarticular recess stenosis with encroachment upon the S1 traversing nerve roots. 4. Moderate to severe central and bilateral subarticular recess stenosis at L2 -3 with moderate bilateral foraminal stenosis. Most significant encroachment up on the traversing L3 nerve roots. 5. Increased signal seen on the survey image in the cervical cord at C5-6. May represent an area of myelomalacia. To confirm MRI of the cervical spine could be obtained.
== END 2022-04-05 09:46 | disposition home or self-care (01) ==
PROVIDERS: PCP Family Medicine; Visit Provider Family Medicine
DX: M43.16 Spondylolisthesis, lumbar region (principal); R29.898 Other symptoms and signs involving the musculoskeletal system; M48.061 Spinal stenosis, lumbar region without neurogenic claudication
CPT/HCPCS: 72148

== ENCOUNTER 2022-05-02 06:00 | Outpatient (RCR) | payer MEDICARE, SELFPAY | END 2022-05-03 23:59 | disposition home or self-care (01) | LOC: SPT 06:00 | PROVIDERS: PCP Family Medicine; Visit Provider Neurological Surgery | DX: M54.50 Low back pain, unspecified (principal) | CPT/HCPCS: 97161 ==

== ENCOUNTER 2022-05-04 06:00 | Outpatient (RCR) | payer MEDICARE, SELFPAY | END 2022-06-03 23:59 | disposition home or self-care (01) | LOC: SPT 06:00 | PROVIDERS: PCP Family Medicine; Visit Provider Neurological Surgery | DX: M54.50 Low back pain, unspecified (principal) | CPT/HCPCS: 97110 ==

== ENCOUNTER 2022-05-12 13:53 | Outpatient (CLI) | payer MEDICARE, SELFPAY ==
--- NOTE | 2022-05-12 14:05 | XR_ITS ---
WS: [id number] DEXA (DUAL ENERGY X-RAY ABSORPTIOMETRY) Bone mineral density was performed using a [employer] machine. HISTORY: AGE-RELATED OSTEOPOROSIS WITHOUT CURRENT PATHOLOGICAL FRACTURE COMPARISON: 01/09/2018 Lumbar spine BMD (L1-L4): 1.324 g/cm2 T score: 1.2 Z score: 2.7 Total hip BMD: Left: 0.858 g/cm2. T score: -1.2 Z score: 0.5 Right: 0.856 g/cm2. T score: -1.2 Z score: 0.5 10 year probability of a major osteoporotic fracture is 34.4%. Compared to the prior study from 01/09/2018. Lumbar spine bone mineral density has decreased by 1.1%. Bilateral hips bone mineral density has decreased by 3.7%. XR/XR DEXA axial skeleton* [id number] IMPRESSION: OSTEOPENIA based upon the WHO classification for females. Significant decrease in bone mineral density within the hips since the prior .
== END 2022-05-12 13:54 | disposition home or self-care (01) ==
PROVIDERS: PCP Family Medicine; Visit Provider Neurological Surgery
DX: M81.0 Age-related osteoporosis without current pathological fracture (principal); M85.88 Other specified disorders of bone density and structure, other site
CPT/HCPCS: 77080

== ENCOUNTER 2022-12-02 06:00 | Outpatient (RCR) | payer MEDICARE, SELFPAY | END 2023-01-01 23:59 | disposition home or self-care (01) | LOC: SPT 06:00 | PROVIDERS: Visit Provider Neurological Surgery | DX: Z98.1 Arthrodesis status (principal) | CPT/HCPCS: 97110; 97161 ==

== ENCOUNTER 2022-12-07 11:47 | Outpatient (CLI) | payer MEDICARE, SELFPAY ==
[2022-12-07 14:17] LABS: 25 Hydroxy Vitamin D 32 ng/mL (30-100)
== END 2022-12-07 11:48 | disposition home or self-care (01) ==
LOC: LAB 11:51
PROVIDERS: PCP Family Medicine; Visit Provider Nurse Practitioner
DX: M81.0 Age-related osteoporosis without current pathological fracture (principal); R79.89 Other specified abnormal findings of blood chemistry
CPT/HCPCS: 36415; 82306

== ENCOUNTER 2023-01-02 06:00 | Outpatient (RCR) | payer MEDICARE, SELFPAY | END 2023-02-01 23:59 | disposition home or self-care (01) | LOC: SPT 06:00 | PROVIDERS: PCP Family Medicine; Visit Provider Neurological Surgery | DX: Z98.1 Arthrodesis status (principal) | CPT/HCPCS: 97110 ==

== ENCOUNTER 2023-01-10 12:30 | Oncology outpatient (recurring) (ONCR) | payer MEDICARE, SELFPAY ==
--- OUTSIDE RECORDS SUMMARY | 2023-01-05 09:01 | XMS_ITS | Continuity of Care Document ---
Author Name Unknown Organization [facility] Address [address] [place] [address]- Care Team Providers Care [employer] Crew Boss Name Role Phone Yina [place], Lois Cunningham Primary Care Physician [phone] Encounter [employer] Number [id number] Date(s): 08/07/22 - 08/09/22 [facility] [address] [place] [phone] Discharge Disposition: .Discharge to Home (Routine) Attending Physician: Ernie Flowers MD Allergies, Adverse Reactions, Alerts Substance Reaction Severity Status statins 1 Myalgia Moderate Active 1MUSCLE PAIN Assessment and Plan Future Appointments Appointment Date:09/12/2022 01:30:00 PM Scheduled Provider:Ernie Schroeder Location:Trauma Surgery Appointment Type:New Patient Appointment Date:09/14/2022 10:00:00 AM Scheduled Provider:Lois Bran MD Location:[facility] Appointment Type:Established Patient Appointment Date:10/05/2022 09:30:00 AM Scheduled Provider: [facility] Procedure Appointment Type:Rad Appointment Date:10/05/2022 10:30:00 AM Scheduled Provider:Ernie Flowers MD Location:[facility] Appointment Type:Established Patient Future Scheduled Tests Laboratory* Lipid Panel with calculated LDL 08/31/22 * CBC-d 08/31/22 * TSH 08/31/22 * CMP 08/31/22 Radiology* XR Lumbar Spine Complete 03/03/22 * BD Bone Densitometry 05/03/22 * BD Bone Densitometry 08/26/21 * XR Cervical Spine 4 or 5 View 10/05/22 * MR Cervical wo Contrast 04/07/22 * MR Lumbar wo Contrast 03/10/22 Immunizations Given and Recorded Vaccine Date Status Refusal Reason influenza virus vaccine 05/16/22 Recorded influenza virus vaccine 1 05/10/21 Recorded influenza virus vaccine 2 03/18/19 Given influenza virus vaccine 04/09/18 Recorded influenza virus vaccine 3 04/10/17 Recorded influenza virus vaccine 4 04/22/16 Recorded influenza virus vaccine 05/24/15 Recorded influenza virus vaccine 05/04/14 Given Prevnar 13 pneumococcal 13-valent 07/04/18 Given Zoster Vaccine Live 5 04/10/17 Recorded Tdap-ADULT/ADOL tetanus/diphth/pertuss,a 6 04/10/17 Recorded Pneumovax 23 pneumococcal 23-valent 05/24/15 Recor ded Pneumovax 23 pneumococcal 23-valent 05/04/14 Given tetanus-diphth toxoids (Td) adult/adol 06/04/11 Gi arlene 1Location History: [place] 2Early/Late Reason: Other : late entry 3[place] 4[place] 5[place] 6Location [place]: [place] Medications acetaminophen 325 mg oral tablet 975 mg, By mouth, QID, # 84 tab, Refill(s) 0, Pharmacy: [facility], [id number], TAB, 975 mg By mouth QID, 73.2, 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 Start Date: 06/21/28 Status: Ordered omeprazole 20 mg, By mouth, Daily, 0, 12/02/21 8:58:00 CDT, Substitution Permitted Start Date: 12/02/21 Status: Ordered Problem List Condition Confirmation Course Effective Dates Status Health Status Informant Bloating Confirmed Active Actinic keratosis Confirmed Active Acute constipation Confirmed Active Vaginal atrophy Confirmed Active Screening for breast cancer Confirmed Active Bronchitis Confirmed Active Daytime somnolence Confirmed Active Diarrhea Confirmed Active Digestive system reflux Confirmed Active Arthropathy of left shoulder Confirmed Active Disorder of sacrum Confirmed Active Arthritis of right shoulder region Confirmed < 03/12/17 Resolved Acute diverticulitis Confirmed Active Rash Confirmed Active Ex-smoker Confirmed Active patient Gastritis Confirmed Active Stress incontinence Confirmed Active Head ache Confirmed Active Hammer toe Confirmed Active Hearing loss Confirmed Active Hx of abnormal cervical Pap smear Confirmed Active Hypercholesteremia Confirmed Active Hypothyroidism Confirmed Active Infection of eyelid Confirmed Resolved Knee pain, left Confirmed Active Low back pain Confirmed Active Lumbar spondylosis Confirmed Active Headache, migraine Confirmed Active Osteoarthritis Confirmed Active Paronychia, finger Confirmed Active Postmenopausal Confirmed Active Hypercholesteremia Confirmed Active Suppurative otitis media of right ear without rupture of tympanic membrane Confirmed Resolved Need for pneumococcal vaccine Confirmed Active RUQ pain Confirmed Active Sciatic pain Confirmed Active Screening for vaginal cancer Confirmed Resolved Seborrheic keratosis Confirmed Active Left shoulder pain Confirmed Active Sinusitis Confirmed Active Skin lesion of back Confirmed Active Skin tag Confirmed Active Sleep apnea Confirmed Active Cervical stenosis of spine Confirmed Active Toe problem Confirmed Active Vertigo Confirmed Active Need for hepatitis C screening test Confirmed Active Procedures Procedure Date Related Diagnosis Body Site Status MRI lumbar spine 1 04/05/22 Comple gavin X-ray lumbar spine 2 03/06/22 Comp leted MRI of the cervical spine 3 11/02/21 Completed Sleep Apnea Cpap 04/08/19 Complete d Dexa Scan 4 01/09/18 Completed Colonoscopy 5 10/18/17 Completed Left shoulder surgery 6 09/27/17 C ompleted Left Shoulder Injection 03/12/17 C ompleted Bilateral L 5, S1, S2, S3 MNBB RFA 05/15/16 Completed LUMBAR/Sacral MEDIAL BRANCH NEUROTOMY (RFA) BILATERAL 08/12/15 Completed Bilateral Sacroiliac Joint Injection 07/14/15 Completed Bilateral Sacroiliac Joint Injection 01/26/15 Completed Bilateral L5-S3 Medial Branc h Neurotomies 12/02/14 Completed Bilateral SI Joint injections 06/12/14 Completed Spinal Injections with crealytics 04/2014 Completed Coccygeal Injection 09/11/13 Compl eted Diaphragm procedure 2005 Compl eted Hysterectomy 7 1989 Completed section 1974 Complete d Appendectomy 1954 Completed 8 Completed 9 Completed C5-7 ACDF Completed 1Severe central bilateral subarticular recess and moderate foraminal stenosis at L3-L4, multifactorial stenosis with encroachment upon the L3-L4 nerve roots, moderate central and bilateral foraminal stenosis with severe subarticular recess stenosis at L4-L5, significant encroachment upon the traversing L5 nerve root, widening and fluid in the facet joints bilaterally, moderate bilateral subarticular recess stenosis with encroachment upon the S1 traversing nerve roots. Moderate to severe central and bilateral subarticular recess stenosis at L2-L3 with moderate bilateral foraminal stenosis most significant encroachment upon the traversing L3 nerve roots. Increased signal seen in the survey image in the cervical cord at C5-C6, may represent an area of myelomalacia. To confirm MRI of the cervical spine could be obtained. 2Degenerative anterolisthesis at L4-L5, 8 mm, old compression fractures superior endplates of L3 andL4, diffuse spondylosis, no acute fracture 3Multilevel degenerative disc disease most severe at C5-C6 with central disc protrusion and neuroforaminal encroachment on the right side at this level. No other significant focal abnormality identified 4NORMAL BONE DENSITY L1-.L4 TSCORE: 1.3 MEAN FEMORAL NECK BONE T SCORE: -0.9 5Normal, scope trauma treated with abx. Repeat 10 years 6torn bicep 7Bleeding due to fibroids. 8auto-populated from documented surgical case 9auto-populated from documented surgical case Results Radiology Reports * Exam Date Time Procedure Performing Provider Status 08/07/22 10:13 AM XR Cervical Spine AP Lateral Ernie Collado; Auth (Verified) Notes: (XR Cervical Spine AP Lateral) Reason For Exam: s/p cervical spine fusion;S/P cervical spinal fusion REPORT XR Cervical Spine AP Lateral PROCEDURE INFORMATION: Exam: XR Cervical Spine Exam date and time: 08/07/2022 10:13 AM Age: 76 years old Clinical indication: Arthrodesis status; Pain; Patient HX: 1 month post op, better, some alexandrea arm soreness; Additional info: S/P cervical spine fusion; S/P cervical spinal fusion TECHNIQUE: Imaging protocol: Radiologic exam of the cervical spine. Views: 2 or 3 views. COMPARISON: CR XR Chest PA Lateral Left Routine 07/06/2022 12:59 PM FINDINGS: Vertebrae: There is a stable C5 through C7 anterior spinal fusion. There is diffuse osteopenia. No acute fracture. The sagittal alignment of the cervical spine is stable. There is a S shaped curvature of the spine. There are lhtf-lx-zqcpxwoc degenerative changes of the cervical spine. Soft tissues: The prevertebral soft tissues are stable. Carotid vascular calcifications are noted. IMPRESSION: 1. Hjvq-he-jxbohxvw degenerative changes of the cervical spine. 2. Stable postsurgical changes of the cervical spine. Electronically signed by: Don Aragon MD, [employer], 08/07/2022 10:43 Don Aragon MD Signed 08/07/22 10:43:49 (Electronic Signature) Technologist [facility] Social History Social History Type Response Smoking Status Former smoker; Smoke less tobacco use: Never; Has the patient smoked in the last 365 days, even once? No entered on: 07/03/22 Sex Female Implantable Device List Procedure Provider Procedure Date Device Type Site Fusion Anterior Cervical wit h Instrument Unknown 07/11/22 Biological Spine - Cervical Device Identifier Serial Number Lot or Batch Number Manufacturing Date Expiration Date Distinct Identification Code MRI Safety Implantable Status Assigning Authority [id number] Unknown Unknown 03/17/24 Unknown Unknown Active GS1 [id number] Unknown Unknown 03/17/24 Unknown Unknown Active GS1 Unknown Unknown [id number] Unknown 03/09/27 Unknown Unknown Active Unknown Unknown Unknown [id number] Unknown 12/15/26 Unknown Unknown Active Unknown Unknown Unknown Unknown Unknown Unknown Unknown Unknown Active Unk nown Unknown Unknown Unknown Unknown Unknown Unknown Unknown Active Unk nown XR Cervical spine AP and Lateral * Don Aragon MD: PERFORM, VERIFY, VERIFY Event Display: Report Authored Date: Note * Don Aragon MD: PERFORM, VERIFY, VERIFY Event Display: Powerscribe Read Authored Date: PROCEDURE INFORMATION: Exam: XR Cervical Spine Exam date and time: 08/07/2022 10:13 AM Age: 76 years old Clinical indication: Arthrodesis status; Pain; Patient HX: 1 month post op, better, some alexandrea arm soreness; Additional info: S/P cervical spine fusion; S/P cervical spinal fusion TECHNIQUE: Imaging protocol: Radiologic exam of the cervical spine. Views: 2 or 3 views. COMPARISON: CR XR Chest PA Lateral Left Routine 07/06/2022 12:59 PM FINDINGS: Vertebrae: There is a stable C5 through C7 anterior spinal fusion. There is diffuse osteopenia. No acute fracture. The sagittal alignment of the cervical spine is stable. There is a S shaped curvature of the spine. There are eqxy-kj-jurasgdr degenerative changes of the cervical spine. Soft tissues: The prevertebral soft tissues are stable. Carotid vascular calcifications are noted. IMPRESSION: 1. Qnak-ju-ioqtivxh degenerative changes of the cervical spine. 2. Stable postsurgical changes of the cervical spine. Electronically signed by: Don Aragon MD, [employer], 08/07/2022 10:43 [place], Don Singh Signed 08/07/22 10:43:49 (Electronic Signature) Technologist [facility] Patient Care team information Care Team Personnel Name: Yina [place], Lois Cunningham Position: PX Physician - Family Practice Member Role: Primary Care Physician Address: Address: [address] [place] [address]- Care Team Related Persons Name: MAYELA PHELPS JR Address: home [address] [place] [phone] [facility] Address: mailing [address] [facility] [place] [phone] [facility] Name: RADHA MARMOLEJO
--- OUTSIDE RECORDS SUMMARY | 2023-01-05 09:01 | XMS_ITS | Continuity of Care Document ---
Author Name Unknown Organization [facility] Address [address] [place] [address]- Care Team Providers Care Cyber O[employer] Planner Name Role Phone Lois Bran MD Primary Care Physician Encounter [employer] Number [id number] Date(s): 11/16/22 - 11/18/22 [facility] [address], [place] [address] [phone] Attending Physician: Ernie Flowers MD Allergies, Adverse Reactions, Alerts Substance Reaction Severity Status cortisone muscles in legs jump, cramps Moderate Active statins 1 Myalgia Moderate Active 1MUSCLE PAIN Assessment and Plan Future Appointments Appointment Date:01/18/2023 08:00:00 AM Scheduled Provider: Location:[facility] Procedure Appointment Type:Rad Appointment Date:01/18/2023 09:30:00 AM Scheduled Provider:Ernie Flowers MD Location:[facility] Appointment Type:Established Patient Appointment Date:05/15/2023 09:00:00 AM Scheduled Provider:Lois Bran MD Location:[facility] Appointment Type:Established Patient Future Scheduled Tests Laboratory* Vitamin D Total 12/06/22 Radiology* XR Lumbar Spine AP Lateral 02/12/23 * XR Lumbar Spine Complete 03/03/22 * BD Bone Densitometry 05/03/22 * XR Cervical Spine 4 or 5 View 10/05/22 * MR Cervical wo Contrast 04/07/22 * MR Lumbar wo Contrast 03/10/22 * MA Mammo Screen Bilat Digital 09/14/22 Immunizations Given and Recorded Vaccine Date Status Refusal Reason influenza virus vaccine 05/16/22 Recorded influenza virus vaccine 1 05/10/21 Recorded influenza virus vaccine 2 10/15/19 Given influenza virus vaccine 04/09/18 Recorded influenza [...] (Td) adult/adol 06/04/11 Gi arlene 1Location History: [facility] 2Early/Late Reason: Other : late entry 3[facility] History[facility] 4[place] 5Location [place]: [place] 6Location History: [place] Medications acetaminophen 325 mg oral tablet 975 mg, By mouth, QID, # 84 tab, Refill(s) 0, Pharmacy: [facility], [id number], TAB, 975 mg By mouth QID, 73.4, 10/19/22 9:09:00 CDT, kg, Weight Start Date: 10/19/22 Status: Ordered celecoxib 200 mg oral capsule 200 mg = 1 cap, By mouth, BID, # 14 cap, Refill(s) 0, Pharmacy: [facility], [id number], CAP, 1 cap By mouth BID, 73.4, 10/19/22 9:09:00 CDT, kg, Weight Start Date: 10/19/22 Status: Ordered Colace 100 mg oral capsule 100 mg = 1 cap, By mouth, BID, PRN for constipation, # 28 cap, Refill(s) 0, Pharmacy: [facility], [id number], 1 cap By mouth BID,x14 Days,PRN:for constipation, 73.4, 10/19/22 9:09:00 CDT, kg, Weight Start Date: 10/19/22 Stop Date: 11/02/22 Status: Ordered ergocalciferol 1.25 mg (50,000 intl units) oral capsule 50,000 IntUnit = 1 cap, By mouth, QW (once a week), # 12 cap, Refill(s) 0, [facility]: [facility][id number], [id number], 1 cap By mouth QW (once a week), 75.18, 10/05/22 12:13:00 CDT, kg, Weight Start Date: 10/05/22 Status: Ordered estradiol 0.1 mg/g vaginal cream 1 = g, VAG, at bedtime, Use 2-3 times a week prn, # 42.5 g, Refill(s) 7, Route to Pharmacy Electronically, Pharmacy: [facility] #[id number], [id number], 1 g VAG at bedtime,Instr:Use 2-3 times a week prn, 74.55, 06/19/22... Start Date: 06/21/28 Status: Ordered gabapentin 300 mg oral capsule 300 mg = 1 cap, By mouth, TID, # 21 cap, Refill(s) 0, Pharmacy: [facility], [id number], 1 cap By mouth TID, 73.4, 10/19/22 9:09:00 CDT, kg, Weight Start Date: 10/19/22 Status: Ordered gabapentin 600 mg oral tablet 600 mg = 1 tab, By mouth, at bedtime, # 30 tab, Refill(s) 0, Pharmacy: [facility] #[id number], 1 tab By mouth at bedtime, 75.45, 11/02/22 10:58:00 CDT, kg, Weight (kg) (Clinical) Start Date: 11/16/22 Status: Ordered Medrol 4 mg oral tablet = 1 pack, By mouth, Daily, as directed on package labeling, X 6 Days, # 21 tab, Refill(s) 0, Pharmacy: [facility] #[id number], [id number], 1 pack By mouth Daily,x6 Days,Instr:as directed on package labeling, 75.45, 11/02... Start Date: 11/16/22 Stop Date: 11/22/22 Status: Ordered omeprazole 20 mg, By mouth, at bedtime, 0, 12/02/21 8:58:00 CDT, Substitution Permitted Start Date: 12/02/21 Status: Ordered ondansetron 4 mg oral tablet 4 mg = 1 tab, By mouth, Q8H, # 15 tab, Refill(s) 0, Pharmacy: [facility], [id number], 1 tab By mouth Q8H, 73.4, 10/19/22 17:22:00 CDT, kg, Weight Start Date: 10/20/22 Stop Date: 10/20/22 Status: Ordered Robaxin 500 mg oral tablet 500 mg = 1 tab, By mouth, QID, PRN Muscle Spasms, # 56 tab, Refill(s) 0, Pharmacy: [facility] #[id number], [id number], 1 tab By mouth QID,x14 Days,PRN:Muscle Spasms, 73.4, 10/19/22 17:22:00 CDT, kg, Weight Start Date: 10/31/22 Stop Date: 11/14/22 Status: Ordered traMADol 50 mg oral tablet 50 mg = 1 tab, By mouth, Q4H, # 42 tab, Refill(s) 0, called to pharmacy Start Date: 11/15/22 Stop Date: 12/01/22 Status: Ordered Problem List Condition Confirmation Course [...] Procedure Date Related Diagnosis Body Site Status L2-5 Optilif 10/19/22 Completed C5-7 ACDF 07/11/22 Completed MRI lumbar spine 1 04/05/22 Comple gavin [...] Joint injections 06/12/14 Completed Spinal Injections with Qian Xiao'er 04/2014 Completed Coccygeal Injection 09/11/13 Compl eted Diaphragm procedure 2004 Compl eted Hysterectomy 1989 Completed section 1974 Complete d Appendectomy 1954 Completed 8 Completed 9 Completed 1Severe central bilateral subarticular recess and [...] surgical case 9auto-populated from documented surgical case Social History Social History Type Response Smoking Status Former smoker; Smoke less tobacco use: Never; Has the patient smoked in the last 365 days, even once? No; Stopped at age: 36; entered on: 10/17/22 Sex Female Implantable Device List Procedure Provider Procedure Date Device Type Site Fusion Opti Lumbar Interbody/O-Arm Unknown 10/19/22 U nknown Spine - Lumbar Device Identifier Serial Number Lot or Batch Number Manufacturing Date Expiration Date Distinct Identification Code MRI Safety Implantable Status Assigning Authority Unknown Unknown [id number] Unknown 04/04/27 Unknown Unknown Active Unkn own Unknown [id number] Unknown Unknown 03/03/24 Unknown Unknown Active Unknown Unknown [id number] Unknown Unknown 08/07/24 Unknown Unknown Active Unknown Unknown [id number] Unknown Unknown 09/12/24 Unknown Unknown Active Unknown Procedure Provider Procedure Date Device Type Site Unknown Unknown 10/19/22 Unknown Spine - Lumbar Device Identifier Serial Number Lot or Batch Number Manufacturing Date Expiration Date Distinct Identification Code MRI Safety Implantable Status Assigning Authority Unknown Unknown [id number] Unknown 02/02/24 Unknown Unknown Active Unknown Unknown [id number] Unknown Unknown 03/08/24 Unknown Unknown Active Unknown Unknown Unknown [id number] Unknown 04/04/27 Unknown Unknown Active Unkn own Unknown Unknown [id number] Unknown 06/03/25 Unknown Unknown Active Unknown Unknown Unknown [id number] Unknown 04/04/27 Unknown Unknown Active Unkn own Unknown [id number] Unknown Unknown 09/12/24 Unknown Unknown Active Unknown Unknown Unknown Unknown Unknown Unknown Unknown Unknown Active Unk nown Unknown Unknown Unknown Unknown Unknown Unknown Unknown Active Unk nown Unknown Unknown Unknown Unknown Unknown Unknown Unknown Active Unk nown Unknown Unknown Unknown Unknown Unknown Unknown Unknown Active Unk nown Unknown Unknown Unknown Unknown Unknown Unknown Unknown Active Unk nown Procedure Provider Procedure Date Device Type Site Fusion Anterior Cervical wit h Instrument Unknown 07/11/22 Biological Spine - Cervical Device Identifier Serial Number Lot or Batch Number Manufacturing Date Expiration Date Distinct Identification Code MRI Safety Implantable Status Assigning Authority [id number] Unknown Unknown 03/17/24 Unknown Unknown Active GS1 [id number] Unknown Unknown 03/17/24 Unknown Unknown Active GS1 Unknown Unknown [id number] Unknown 03/09/27 Unknown Unknown Active Unknown Unknown Unknown [id number] Unknown 12/15/26 Unknown Unknown Active Unknown Unknown Unknown Unknown Unknown Unknown Unknown Unknown Active Unk nown Unknown Unknown Unknown Unknown Unknown Unknown Unknown Active Unk nown Patient Care team information Care Team Personnel Name: Yina [place], Lois Cunningham Position: PX Physician - Family Practice Member Role: Primary Care Physician Address: Address: [address], [place] [address] Care Team Related Persons Name: MAYELA PHELPS JR Address: home [address] [place], [place] [id number] [facility] Address: mailing [address] [place], [place] [phone] [facility] Name: RADHA MARMOLEJO
--- OUTSIDE RECORDS SUMMARY | 2023-01-05 09:01 | XMS_ITS | Continuity of Care Document ---
Author Name Unknown Organization [facility] Address [address] [place] [address]- Care Team Providers Care Major Donor Coordinator Name Role Phone Lois Bran MD Primary Care Physician [phone] Encounter 10/05/22 - 10/06/22 [facility] [address] [place] [address]- [place] Encounter Diagnosis S/P spinal fusion(Discharge Diagnosis) - 10/05/22 Encounter for screening for other disorder(Discharge Diagnosis) - 10/05/22 Attending Physician: Ernie Flowers MD Allergies, Adverse Reactions, Alerts Substance Reaction Severity Status statins 1 Myalgia Moderate Active 1MUSCLE PAIN Assessment and Plan Extracted from: Title:Office Visit - Comprehensive Author:Ernie Churchill MD Date:10/05/22 1.??S/P spinal fusion(Arthro desis status: Z98.1) Ordered: Office Visit Level 3 Established 20-29 min [id number] Return to Clinic ?? May is in clinic today??3 months status??post ACDF.?? Prior??to her appointment??she has undergone XR imaging??of her cervical??spine which??reveals??stable postoperative changes.?? No evidence??of hardware failure. ?? Patient??continues to??use the bone stimulator??and??has follow-up today with??fragility fracture??clinic.?? She is to be started on Prolia. ?? With regards??to her cervical??fusion-all of her restrictions??have been??lifted.?? She??no longer requires??the cervical??collar.?? She is going??to continue using the bone stimulator??for another??2 months ?? She continues??to have low back??pain as well??as??bilateral lower??extremity??radiculopathy as??well as numbness.?? In addition??she has point tenderness over??the right??SI joint. ?? Previously she has??undergone conservative??treatment??options??including PT, epidural steroid??injections, RFA, nonsteroidal anti-inflammatory medications, all??of which??were not??helpful except??for the RFA that was helpful??briefly. ?? When we last saw??her, she stated her??low back pain with lower??extremity??radiculopathy??is worse??and more apparent.?? She is additionally numbness??and tingling in the bilateral??L3-5 distributions.?? She generally has trouble??ambulating as well as standing??up from a sitting position due??to the significant??pain??and numbness??she has.? We reviewed??her??MRI??and x-rays of lumbar??spine??demonstrates evidence of multilevel??degenerative??changes at L2-3, L3-4??and L4-5 associated??evidence of??grade 1 spondylolisthesis??at L3-4 and L4-5 associated with??dynamic??instability on ?flexion-extension??x-rays.?? There is evidence of significant??disc height as??well as??endplate??changes as well??as??bilateral neural??foraminal compromise??that is significant??at the bilateral??L2-3, L3-4??and L4-5??levels.?? There is also evidence??of older??L3 and L4 compression fractures??which??she believes occurred after??she had an??injury while riding a horse.? Due??to failure??of multiple??conservative??treatment options??as??well as??his worsening??of symptoms,??I would recommend that we proceed with??a minimally??invasive??and??neuroendoscopic??approach with??foraminotomy,??and?L2-3, L3-4??and L4-5??OptiLIF (which??would incorporate??complete diskectomy under direct visualization, preparation??of interbody??disc??space for anterior??mesh placement??with??arthrodesis??followed by??bilateral posterior pedicle??screw instrumentation).?This will allow??us to adequately decompress??the segment as well as??restore disc??height and stabilize the spine.?We will have direct visualization??of the disc space??as??well??as??perform??decompression of the disc??space and interbody graft placement.?? Pedicle screw instrumentation??will??be placed at L2, L3, L4 and L5. ?? All questions??answered in detail.?? She is agreeable??with the plan. ?? Prior to scheduling surgery, extensive pre-operative education was undertaken with the patient by both my staff and myself. A review of spondylosis, disc herniations, and radiculopathies was completed. Models of the spine as well as the patient? s x-rays were used to demonstrate the various pathologies. The patient clearly understands that the surgical treatment of spine disease carries no guarantee of definitive pain??or numbness relief??or improvement in weakness. The patient also understands that degenerative spine disease poses no direct threat to their life, therefore; the consideration of operative treatment reflects the patients debilitated condition, an unacceptable impact on their quality of life, and an exhaustive attempt to relieve symptoms with non-surgical therapies. ? The operative procedure was reviewed with the patient including the placement of instrumentation, bone grafts, and implants. Risks including (but not limited to) bleeding, infection, spinal fluid leak, blindness, permanent or temporary nerve injury, bowel and bladder dysfunction, failure of the fusion, the need for possible additional procedures, adjacent segment disease, damage to vital organ function and major blood vessels, and even were reviewed. We also discussed the possibility of continued pain and the possibility of cardiac, pulmonary and anesthetic related complications. They were given the opportunity to ask questions and wish to proceed. ? We will additionally refer her??for a right??SI joint??injection.?? She reports having??intolerance??to the steroid??component??of the injections. ?? In the interim??we will additionally provided her with an [place]??LSO to use while ambulating.?? This will provide her??spine with??support both preoperatively and postoperatively. ? Future Appointments Appointment Date:10/19/2022 02:45:00 PM Scheduled Provider: Location:[facility] Surgery Appointment Type:Surgery Appointment Date:11/16/2022 12:15:00 PM Scheduled Provider: Location:[facility] Procedure Appointment Type:Rad Appointment Date:11/16/2022 12:30:00 PM Scheduled Provider:Ernie Flowers MD Location:[facility] Appointment Type:Post-Op Appointment Date:05/15/2023 09:00:00 AM Scheduled Provider:Lois Bran MD Location:[facility] Appointment Type:Established Patient Future Scheduled Tests Laboratory* Vitamin D Total 12/06/22 Radiology* XR Lumbar Spine AP Lateral 11/17/22 * XR Lumbar Spine Complete 03/03/22 * [...] (Td) adult/adol 06/04/11 Gi arlene 1Location History: [place] 2Early/Late Reason: Other : late entry 3Location History: [place], [place] 4Location History: [place] 5Location History: [place], [place] 6Location History: [place] Medications acetaminophen 325 mg oral tablet 975 mg, By mouth, QID, # 84 tab, Refill(s) 0, Pharmacy: [facility], [id number], TAB, 975 mg By mouth QID, 73.2, 07/11/22 6:24:00 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 CHAIR, kg, Weight Start Date: 07/11/22 Status: Ordered ergocalciferol 1.25 mg (50,000 intl units) oral capsule 50,000 IntUnit = 1 cap, By mouth, QW (once a week), # 12 cap, Refill(s) 0, [id number], [id number], 1 cap By mouth QW (once a week), 75.18, 10/05/22 12:13:00 CDT, kg, Weight Start Date: 10/05/22 Status: Ordered estradiol 0.1 mg/g vaginal cream 1 = g, VAG, at bedtime, Use 2-3 times a week prn, # 42.5 g, Refill(s) 7, Route to Pharmacy Electronically, [id number], [id number], 1 g VAG at bedtime,Instr:Use 2-3 times a week prn, 74.55, 06/19/22... Start Date: 06/21/28 Status: Ordered meloxicam 15 mg oral tablet 15 mg = 1 tab, By mouth, Daily, # 30 tab, Refill(s) 0 Start Date: 09/14/22 Status: Ordered omeprazole 20 mg, By mouth, [...] Joint injections 06/12/14 Completed Spinal Injections with Superbly 04/2014 Completed Coccygeal Injection 09/11/13 Compl eted [...] surgical case 9auto-populated from documented surgical case Vital Signs Most recent to oldest [Reference Range]: 1 Blood Pressure 110/68 (10/05/22 9:55 AM) Height (inches) (Clinical) 66 in (10/05/22 9:55 AM) Weight (kg) (Clinical) 75.73 kg (10/05/22 9:55 AM) BMI (Clinical) 26.9 kg/m2 (10/05/22 9:55 AM) Social History Social History Type Response Smoking [...] Code MRI Safety Implantable Status Assigning Authority [id number] Unknown Unknown 03/17/24 Unknown Unknown Active GS1 [id number] Unknown Unknown 03/17/24 Unknown Unknown Active GS1 Unknown Unknown [id number] Unknown 03/09/27 Unknown Unknown Active Unknown Unknown Unknown [id number] Unknown 12/15/26 Unknown Unknown Active Unknown Unknown Unknown Unknown Unknown Unknown Unknown Unknown Active Unk nown Unknown Unknown Unknown Unknown Unknown Unknown Unknown Active Unk nown Neurological surgery Outpatient Note * [place], Ernie: PERFORM, MODIFY Event Display: Neurosurgery Office/Clinic Note Authored Date: [id number] Chief Complaint 76 y/o female 3 months s/p C5-7 ACDF 07/11/22. Patient notes neck pain and BUE pain. This has improved 90% improved since surgery. Pain is aggravated by lifting. Pain is relieved by heat and rest. General Information Information Given By: Patient (10/05/22 09:55:00) Nurse Intake Nursing Intake?? General Information?? Pain Information?? Physicians and Specialties: Dr. Lois Bran - PCP, Dr. Ernie Flowers - Neurosurgery, (10/05/22) Pain Intensity: 2 (10/05/22) Information Given By: Patient (10/05/22) Pain at Best: 1 (10/05/22) ?? Pain at Worst: 5 (10/05/22) ?? Pain Location: neck BUE (10/05/22) ?? Pain ??Quality: ache (10/05/22) History of Present Illness Patient is a??76-year-old??female that presents??to clinic??3 months status post??C5-7??ACDF.?? Since??her last??follow-up patient has continue to improve.?? Her pain??is a??5/10 at worst??but??typically??1 or??2/10. She continues to observe??her restrictions??and is using her cervical??collar??and bone??stimulator. She has??follow-up with fragility fracture clinic??today.?? She is also here due??to??her lumbar complaints. ?? 76 y/o female s/p C5-7 ACDF 07/11/22. Patient notes some neck and BUE pain at times. Pain is aggravated by sleeping is is relived by activity. [1] ?? 76 y/o female RTC to discuss Dexa and surgery. Patient notes neck pain that radites into BUE. Pain is aggravated by reaching up. Pain is relieved by resting. ?? 76 y/o female c/o neckpain that radiates into BUE and LBP that radiates into BLE. PAin is aggravated by standing and walking. Pain is relieved by sitting and laying ?? She continues??to have??low back??pain with??bilateral lower??extremity??radiculopathy and numbness??in the??L3-5??distribution.?? She has significant difficulty??in ambulating as??well and feels??that she is generally weaker. ?? She has undergone conservative treatment options??now including??physical therapy, RFA and epiduralsteroid??injections.?? The RFA??injections used to work but??currently??do not anymore. ?? She continues also to??have neck pain??with??bilateral??upper extremity??radiculopathy and intermittent??numbness??in the hands.?? Denies any significant??weakness in the hands though.?Mrs. Phelps Is a 75 ??year old female that presents with complaint of neck pain and bilateral shoulder pain. Patient reports??long standing neck pain but worse in last 12 months. Patient relates a??history of a fall and hyperextension injury to her neck while playing donkey basketball . Fall from moving donkey landing on her face and??chest. Denies N/T??to UE. Denies weakness. Pain to bilateral shoulders and reports frequent MICAHUD. Also reports intermittent dizziness and recent falls. ?? Aggravating factors include Range of Motion. Alleviating factors include laying down.? Rates pain ??11/11 today. ?? Treatment prior to visit includes: Chiropractor NSAIDs Narcotics ?? Has not trialed muscle relaxers, VASILIY or PT. ?? Patient does report previous low back pain and pelvic/sacral fracture (2010)??but improved with VASILIY L/SI joint,??PT, and weight loss. 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 RHD. Ambulatory at baseline without assistive device. Review of Systems General Statement:Denies significant change in weight, fever, chills & fatigue Eye Statement:Denies changes in vision. ENT Statement:Denies changes in hearing, sinus headaches or ENT symptoms. Cardiovascular Statement:Denies chest pain, palpitations, and edema Respiratory Statement:Denies cough, wheezing, and dyspnea GI Statement:Denies nausea, vomiting, food intolerance, abdominal pain, & change in bowel pattern Statement:Denies dysuria, urinary frequency, urinary hesitancy & urethral discharge Musculoskeletal Admits to:Weakness,Other: neck pain Skin Statement:Denies rashes, lesions & pruritus Neurologic Admits to:Balance issues Psychiatric Statement:Denies symptoms of anxiety, depression, & insomnia Endocrine Statement:Denies excessive thirst, excessive urination, and changes in skin or hair texture Heme/Lymph Statement:Denies easy bleeding and bruising Allergy/Immunology Statement:Denies seasonal allergies and persistent infections Sleep Statement:Denies sleep problems Physical Exam Vitals & Measurements HR:??76?? RR:??19?? BP:??110/68?? HT:??66??in?? WT:??166.6??lb?? WT:??75.73??kg?? BMI:??26.9?? General: Well-developed, well-nourished, in no distress. HEENT: atraumatic, normocephalic Heart: Regular rate and rhythm. Lungs: Breathing Room air without difficulty, no labored breathing, no wheezing obvious Abdomen: Soft and non-tender. Skin: Except as noted??no ulcerations, or lesions noted about the head and neck and trunk or extremities. Musculoskeletal:??Normal tone and range of motion Neuro: Awake, alert and oriented CN II-XII grossly intact Strength 5/5 in all groups Sensory grossly intact??except??numbness in the bilateral??L3-5 distribution?? Reflexes 2+ Cerebellar normal Gait antalgic ?? Right SI joint??provocation tests?? + Distraction + Thigh thrust + Compression + VAL + Anthonylen Assessment/Plan 1.??S/P spinal fusion(Arthrodesis status: Z98.1) Ordered: Office Visit Level 3 Established 20-29 min [id number] Return to Clinic ?? May is in clinic today??3 months status??post ACDF.?? Prior??to her appointment??she has undergone XR imaging??of her cervical??spine which??reveals??stable postoperative changes.?? No evidence??of hardware failure. ?? Patient??continues to??use the bone stimulator??and??has follow-up today with??fragility fracture??clinic.?? She is to be started on Prolia. ?? With regards??to her cervical??fusion-all of her restrictions??have been??lifted.?? She??no longer requires??the cervical??collar.?? She is going??to continue using the bone stimulator??for another??2 months ?? She continues??to have low back??pain as well??as??bilateral lower??extremity??radiculopathy as??well as numbness.?? In addition??she has point tenderness over??the right??SI joint. ?? Previously she has??undergone conservative??treatment??options??including PT, epidural steroid??injections, RFA, nonsteroidal anti-inflammatory medications, all??of which??were not??helpful except??for the RFA that was helpful??briefly. ?? When we last saw??her, she stated her??low back pain with lower??extremity??radiculopathy??is worse??and more apparent.?? She is additionally numbness??and tingling in the bilateral??L3-5 distributions.?? She generally has trouble??ambulating as well as standing??up from a sitting position due??to the significant??pain??and numbness??she has.? We reviewed??her??MRI??and x-rays of lumbar??spine??demonstrates evidence of multilevel??degenerative??changes at L2-3, L3-4??and L4-5 associated??evidence of??grade 1 spondylolisthesis??at L3-4 and L4-5 associated with??dynamic??instability on flexion-extension??x-rays.?? There is evidence of significant??disc height as??well as??endplate??changes as well??as??bilateral neural??foraminal compromise??that is significant??at the bilateral??L2-3, L3- 4??and L4-5??levels.?? There is also evidence??of older??L3 and L4 compression fractures??which??she believes occurred after??she had an??injurywhile riding a horse.? Due??to failure??of multiple??conservative??treatment options??as??well as??his worsening??of symptoms,??I would recommend that we proceed with??a minimally??invasive??and??neuroendoscopic??approach with??foraminotomy,??and?? L2-3, L3-4??and L4-5??OptiLIF (which??would incorporate??complete diskectomy under direct visualization, preparation??of interbody??disc??space for anterior??mesh placement??with??arthrodesis??followed by??bilateral posterior pedicle??screw instrumentation).?This will allow??us to adequately decompress??the segment as well as??restore disc??height and stabilize the spine.?We will have direct visualization??of the disc space??as??well??as??perform??decompression of the disc??space and interbody graft placement.?? Pedicle screw instrumentation??will??be placedat L2, L3, L4 and L5. ?? All questions??answered in detail.?? She is agreeable??with the plan. ?? Prior to scheduling surgery, extensive pre-operative education was undertaken with the patient by both my staff and myself. A review of spondylosis, disc herniations, and radiculopathies was completed. Models of the spine as well as the patient???s x-rays were used to demonstrate the various pathologies. The patient clearly understands that the surgical treatment of spine disease carries no guarantee of definitive pain??or numbness relief??or improvement in weakness. The patient also understands that degenerative spine disease poses no direct threat to their life, therefore; the consideration of operative treatment reflects the patients debilitated condition, an unacceptable impact on their quality of life, and an exhaustive attempt to relieve symptoms with non-surgical therapies. ? The operative procedure was reviewed with the patient including the placement of instrumentation, bone grafts, and implants. Risks including (but not limited to) bleeding, infection, spinal fluid leak, blindness, permanent or temporary nerve injury, bowel and bladder dysfunction, failure of the fusion, the need for possible additional procedures, adjacent segment disease, damage to vital organ function and major blood vessels, and even were reviewed. We also discussed the possibility of continued pain and the possibility of cardiac, pulmonary and anesthetic related complications. They were given the opportunity to ask questions and wish to proceed.? We will additionally refer her??for a right??SI joint??injection.?? She reports having??intolerance??to the steroid??component??of the injections. ?? In the interim??we will additionally provided her with an [place]??LSO to use while ambulating.?? This will provide her??spine with??support both preoperatively and postoperatively. ? Problem List/Past Medical History Bloating: ?? Actinic keratosis: ?? Acute constipation: ?? Vaginal atrophy: ?? Screening for breast cancer: ?? Bronchitis: ?? Daytime somnolence: ?? Degenerative disc disease, cervical: ?? Lumbar degenerative disc disease: ?? Diarrhea: ?? Digestive system reflux: ?? Arthropathy of left shoulder: ?? Disorder of sacrum: ?? Acute diverticulitis: ?? Rash: ?? Gastritis: ?? Stress incontinence: ?? Head ache: ?? Hammer toe: ?? Hearing loss: ?? Hx of abnormal cervical Pap smear: ?? Hypercholesteremia: ?? Hypothyroidism: ?? Knee pain, left: ?? Low back pain: ?? Lumbar spondylosis: ?? Headache, migraine: ?? Osteoarthritis: ?? Paronychia, finger: ?? Postmenopausal: ?? Hypercholesteremia: ?? Need for pneumococcal vaccine: ?? RUQ pain: ?? Sciatic pain: ?? Seborrheic keratosis: ?? Left shoulder pain: ?? Sinusitis: ?? Skin lesion of back: ?? Skin tag: ?? Sleep apnea: ?? Cervical stenosis of spine: ?? Toe problem: ?? Vertigo: ?? Need for hepatitis C screening test: ?? Procedure/Surgical History ???MRI lumbar spine (04/05/2022)???X-ray lumbar spine (03/06/2022)???MRI of the cervical spine (11/02/2021)???Sleep Apnea Cpap (04/08/2019)???Dexa Scan (01/09/2018)???Colonoscopy (10/18/2017)???Left shoulder surgery (09/27/2017)???Left Shoulder Injection (03/12/2017)???Bilateral L 5, S1, S2, S3 MNBB RFA (05/15/2016)???LUMBAR/Sacral MEDIAL BRANCH NEUROTOMY (RFA) BILATERAL (08/12/2015)???Bilateral Sacroiliac Joint Injection (07/14/2015)???Bilateral Sacroiliac Joint Injection (01/26/2015)???Bilateral L5-S3 Medial Branch Neurotomies (12/02/2014)???Bilateral SI Joint injections (06/12/2014)???Spinal Injections with Superbly ()???Coccygeal Injection (09/11/2013)???Diaphragm procedure (2004)???Hysterectomy (1989)??? section (1973)???Appendectomy (1954)?C5-7 ACDF Medications Home Medications (4) Active acetaminophen 325 mg oral tablet??975 mg,Start_date: 07/11/22,Refills: 0, By mouth, QID estradiol 0.1 mg/g vaginal cream??1 g,Start_date: 06/21/28,Refills: 7, VAG, at bedtime meloxicam 15 mg oral tablet??15 mg = 1 tab,Start_date: 09/14/22,Refills: 0, By mouth, Daily omeprazole??20 mg,Start_date: 12/02/21,Refills: 0, By mouth, Daily Medication reconciliation completed on this patient today Allergies statins??(Myalgia) Social History Alcohol Denies Employment/School Status: Retired. Exercise Home/Environment Marital status . Seatbelt use: Always. Hobbies: horses. Tattoos: No. place: [place]. Water source: well. Nutrition/Health Type of diet: No Diet Restrictions. Caffeine intake amount: 1-2 drinks/day. Calcium intake: Adequate Intake. Sun exposure: Frequently - w/o sunscreen. Sexual High risk behavior: No. Substance Abuse Denies Tobacco Smoking Status: Former smoker. Smokeless tobacco use: Never. Has the patient smoked in the last 365days, even once? No. Family History Lung cancer: MOTHER. [1]??Office Visit - Simple; Maida Duff 08/07/2022 11:37 ENGLISH DIVISION CHAIR Electronically signed by:Ernie Flowers MD 10/05/22 11:07 Patient Care team information Care Team Personnel Name: Lois Bran MD Position: PX Physician - Family Practice Member Role: Primary Care Physician Address: Address: [address] [place] [address]- Care Team Related Persons Name: MAYELA PHELPS JR Address: home [address] [place] [phone] [facility] Address: mailing [address] [place], [place] [phone] [facility] Name: RAHDA MARMOLEJO
--- OUTSIDE RECORDS SUMMARY | 2023-01-05 09:01 | XMS_ITS | Continuity of Care Document ---
Author Name Unknown Organization [facility] Address [address] [place] [address]- Care Team Providers Care Honing Machine Operator Semiautomatic Name Role Phone Lois Bran MD Primary Care Physician [phone] Encounter [employer] Number [id number] Date(s): 10/17/22 - 10/19/22 [facility] [address] [place], [place] [address] Attending Physician: Ernie Flowers MD Allergies, Adverse Reactions, Alerts Substance Reaction Severity Status cortisone muscles in legs jump, cramps Moderate Active statins 1 Myalgia Moderate Active 1MUSCLE PAIN Assessment and Plan Future Appointments Appointment Date:11/16/2022 12:15:00 PM Scheduled Provider: Location:[facility] Procedure Appointment Type:Rad Appointment Date:11/16/2022 12:30:00 PM Scheduled Provider:Ernie Flowers MD Location:[facility] Appointment Type:Post-Op Appointment Date:05/15/2023 09:00:00 AM Scheduled Provider:Lois Bran MD Location:[facility] Appointment Type:Established Patient Future Scheduled Tests Laboratory* [...] (Td) adult/adol 06/04/11 [facility] 1Location History: [place] 2Early/Late Reason: Other : late entry 3Location History: [place] 4Location History: [place] 5Location History: [place] 6Location History: [place] Medications acetaminophen 325 mg oral tablet 975 mg, By mouth, QID, # 84 tab, Refill(s) 0, Pharmacy: [facility], [id number], TAB, 975 mg By mouth QID, 73.4, 10/19/22 9:09:00 CDT, kg, Weight Start Date: 10/19/22 Status: Ordered celecoxib 200 mg oral capsule 200 mg = 1 cap, By mouth, BID, # 14 cap, Refill(s) 0, Pharmacy: [facility], [id number], CAP, 1 cap By mouth BID, 73.4, 10/19/22 9:09:00 CDT, kg, Weight Start Date: 10/19/22 Status: Ordered Colace 100 mg oral capsule 100 mg = 1 cap, By mouth, BID, PRN for constipation, # 28 cap, Refill(s) 0, Pharmacy: [facility], [id number], 1 cap By mouth BID,x14 Days,PRN:for constipation, 73.4, 10/19/22 9:09:00 CDT, kg, Weight Start Date: 10/19/22 Stop Date: 11/02/22 Status: Ordered ergocalciferol 1.25 mg (50,000 intl units) oral capsule 50,000 IntUnit = 1 cap, By mouth, QW (once a week), # 12 cap, Refill(s) 0, [id number] [id number], 1 cap By mouth QW (once a week), 75.18, 10/05/22 12:13:00 CDT, kg, Weight Start Date: 10/05/22 Status: Ordered estradiol 0.1 mg/g vaginal cream 1 = g, VAG, at bedtime, Use 2-3 times a week prn, # 42.5 g, Refill(s) 7, Route to Pharmacy Electronically, Pharmacy: [id number], [id number], 1 g VAG at bedtime,Instr:Use 2-3 times a week prn, 74.55, 06/19/22... Start Date: 06/21/28 Status: Ordered gabapentin 300 mg oral capsule 300 mg = 1 cap, By mouth, TID, # 21 cap, Refill(s) 0, Pharmacy: [facility], [id number], 1 cap By mouth TID, 73.4, 10/19/22 9:09:00 CDT, kg, Weight Start Date: 10/19/22 Status: Ordered omeprazole 20 mg, By mouth, at bedtime, 0, 12/02/21 8:58:00 CDT, Substitution Permitted Start Date: 12/02/21 Status: Ordered oxyCODONE 5 mg oral tablet 5 mg, = 1 tab, By mouth, Q4H, PRN as needed for pain, for postop pain control following spine surgery, 42 tab, 0, 0, Substitution Permitted, [facility], 66, Height, 10/19/22 9:09:00 CDT, in, 73.4, Weight, 10/19/22 9:09:00 CDT, kg Start Date: 10/19/22 Status: Ordered Robaxin 500 mg oral tablet 500 mg = 1 tab, By mouth, QID, PRN Muscle Spasms, # 56 tab, Refill(s) 0, Pharmacy: [facility], [id number], 1 tab By mouth QID,x14 Days,PRN:Muscle Spasms, 73.4, 10/19/22 9:09:00 CDT, kg, Weight Start Date: 10/19/22 Stop Date: 11/02/22 Status: Ordered Problem List Condition Confirmation Course [...] Procedure Date Related Diagnosis Body Site Status C5-7 ACDF 07/11/22 Completed MRI lumbar spine [...] Joint injections 06/12/14 Completed Spinal Injections with [employer] 04/2014 Completed Coccygeal Injection 09/11/13 Compl eted [...] Safety Implantable Status Assigning Authority Unknown Unknown [id number] Unknown 04/04/27 Unknown Unknown Active Unkn own Unknown Unknown [id number] AAZ Unknown 02/02/24 Unknown Unknown Active Unknown Unknown [id number] Unknown Unknown 03/08/24 Unknown Unknown Active Unknown Unknown Unknown [id number] Unknown 04/04/27 Unknown Unknown Active Unkn own Unknown Unknown [id number] 2 Unknown 06/03/25 Unknown Unknown Active Unknown Unknown Unknown [id number] Unknown 04/04/27 Unknown Unknown Active Unkn own Unknown [id number] Unknown Unknown 03/03/24 Unknown Unknown Active Unknown Unknown Unknown Unknown Unknown 08/07/24 Unknown Unknown Active Unkn own Unknown [id number] Unknown Unknown 09/12/24 Unknown Unknown Active [...] Code MRI Safety Implantable Status Assigning Authority [id number] Unknown Unknown 03/17/24 Unknown Unknown Active GS1 [id number] Unknown Unknown 03/17/24 Unknown Unknown Active GS1 Unknown Unknown [id number] Unknown 03/09/27 Unknown Unknown Active Unknown Unknown Unknown [id number] 69 Unknown 12/15/26 Unknown Unknown Active Unknown Unknown Unknown Unknown Unknown Unknown Unknown Unknown Active Unk nown Unknown Unknown Unknown Unknown Unknown Unknown Unknown Active Unk nown Patient Care team information Care Team Personnel Name: Lois Bran MD Position: PX Physician - Family Practice Member Role: Primary Care Physician Address: Address: [address] [place] [address]- [place] Care Team Related Persons Name: MAYELA PHELPS JR Address: home [address] [facility] [place] [phone] [facility] Address: mailing [address] [facility] [place] [phone] [facility] Name: RADHA MARMOLEJO
--- OUTSIDE RECORDS SUMMARY | 2023-01-05 09:01 | XMS_ITS | Continuity of Care Document ---
Author Name Unknown Organization [facility] Address [address] [place] [facility] [place] [address]- Care Team Providers Care Webbing Inspector Name Role Phone Lois Bran MD Primary Care Physician [phone] Encounter 09/14/22 - 09/15/22 [facility] [address] [place] [address]- [place] Encounter Diagnosis Hypercholesteremia(Discharge Diagnosis) - 09/14/22 Hypothyroidism(Discharge Diagnosis) - 09/14/22 Osteoarthritis(Discharge Diagnosis) - 09/14/22 Vaginal atrophy(Discharge Diagnosis) - 09/14/22 Postmenopausal(Discharge Diagnosis) - 09/14/22 Screening for breast cancer(Discharge Diagnosis) - 09/14/22 Encounter for screening for depression(Discharge Diagnosis) - 09/15/22 Encounter for screening for other disorder(Discharge Diagnosis) - 09/15/22 Attending Physician: Lois Bran MD Allergies, Adverse Reactions, Alerts Substance Reaction Severity Status statins 1 Myalgia Moderate Active 1MUSCLE PAIN Assessment and Plan Extracted from: Title:Office Visit - Comprehensive Author:Lois Junior MD Date:09/14/22 Hypercholesteremia(Pure hype rcholesterolemia, unspecified: E78.00) No changes,??patient had adjusted her diet, will check??cholesterol today and see how??her??LDL looks.?? We had??discussed treatments??last year and she was not anxious to??do that?? She has??had problems with??statins before. ? Ordered: Office Visit Level 4 Established 30-39 min 99321 Return to Clinic, Return in 6 months ?? Hypothyroidism(Hypothyroidism, unspecified: E03.9) Stable at??this??time, continue??to monitor? Ordered: Office Visit Level 4 Established 30-39 min 31329 Return to Clinic, Return in 6 months ?? Osteoarthritis(Unspecified osteoarthritis, unspecified site: M19.90) Ordered: Office Visit Level 4 Established 30-39 min 97965 Return to Clinic, Return in 6 months ?? Postmenopausal(Asymptomatic menopausal state: Z78.0) dexa Ordered: BD Bone Densitometry Office Visit Level 4 Established 30-39 min 62603 Return to Clinic, Return in 6 months ?? Screening for breast cancer(Encounter for screening mammogram for malignant neoplasm of breast: Z12.31) screening mammo Ordered: MA Mammo Screen Bilat Digital Office Visit Level 4 Established 30-39 min 26915 Return to Clinic, Return in 6 months ?? Vaginal atrophy(Postmenopausal atrophic vaginitis: N95.2) She would like??to continue estradiol cream?? Ordered: Office Visit Level 4 Established 30-39 min 89424 Return to Clinic, Return in 6 months ?? Orders: CMP Lipid Panel with calculated LDL TSH Future Appointments Appointment Date:09/28/2022 11:15:00 AM Scheduled Provider:Ernie Schroeder Location:[facility] Appointment Type:New Patient Appointment Date:10/05/2022 09:30:00 AM Scheduled Provider: Location:[facility] Procedure Appointment Type:Rad Appointment Date:10/05/2022 10:30:00 AM Scheduled Provider:Ernie Flowers MD Location:[facility] Appointment Type:Established Patient Appointment Date:05/15/2023 09:00:00 AM Scheduled Provider:Lois Bran MD Location:[facility] Appointment Type:Established Patient Future Scheduled Tests Radiology* XR Lumbar Spine Complete 03/03/22 * BD Bone Densitometry 09/14/22 * BD Bone Densitometry 05/03/22 * BD [...] Reason: Other : late entry 3[place] 4[place] 6[place]: [place] Medications acetaminophen 325 mg oral tablet 975 mg, By mouth, QID, # 84 tab, Refill(s) 0, [facility], [id number], TAB, 975 mg By mouth QID, 73.2, 07/11/22 6:24:00 JAVASCRIPT APPLICATION DEVELOPER, kg, Weight Start Date: 07/11/22 Status: Ordered estradiol 0.1 mg/g vaginal cream 1 = g, VAG, at bedtime, Use 2-3 times a week prn, # 42.5 g, Refill(s) 7, Route to Pharmacy Electronically, Pharmacy: [id number], [id number], 1 g VAG at bedtime,Instr:Use 2-3 times [...] Status MRI lumbar spine 1 04/05/22 Comple gaivn X-ray lumbar spine 2 03/06/22 Comp leted [...] Joint injections 06/12/14 Completed Spinal Injections with [facility] 04/2014 Completed Coccygeal Injection 09/11/13 Compl eted [...] to oldest [Reference Range]: 1 Blood Pressure 92/56 (09/14/22 9:44 AM) Height (inches) (Clinical) 66 in (09/14/22 9:44 AM) Weight (kg) (Clinical) 75.62 kg (09/14/22 9:44 AM) BMI (Clinical) 26.8 kg/m2 (09/14/22 9:44 AM) Social History Social History Type Response [...] Code MRI Safety Implantable Status Assigning Authority [id number] Unknown Unknown 03/17/24 Unknown Unknown Active GS1 [id number] [id number] 163 Unknown Unknown 03/17/24 Unknown Unknown Active GS1 Unknown Unknown [id number] 85 Unknown 03/09/27 Unknown Unknown Active Unknown Unknown Unknown [id number] 69 Unknown 12/15/26 Unknown Unknown Active Unknown Unknown Unknown Unknown Unknown Unknown Unknown Unknown Active Unk nown Unknown Unknown Unknown Unknown Unknown Unknown Unknown Active Unk nown Family medicine Note * [place], Lois Cunningham: PERFORM, MODIFY Event Display: Family Practice Office/Clinic Note Authored Date: [id number] Chief Complaint 6 month follow up ??& lab Hypothyroid, Migraines , HLD Lower Back Pain , Cervical Stenosis General Information Information Given By: Patient (09/14/22 09:44:00) Nurse Intake Nursing Intake?? General Information?? Pain Information?? Physicians and Specialties: Dr. Lois Bran -- PCPDrMei Flowers -- Neurosurgeon (09/14/22) Pain Intensity: 4 (09/14/22) Information Given By: Patient (09/14/22) Pain at Worst:??7??High (09/14/22) ?? Pain Location: lower back (09/14/22) ?? Pain Present: Yes actual or suspected pain (09/14/22) History of Present Illness She is doing well today, no new concerns.?? SHe says that her neck is feeling better.?? She is having less pain down her arms.?? She had neck surgery few??weeks ago??which has been very helpful.?? She is recovering??and does not have any??other??new issues??today.?? She is taking her medications??wi thout??any problems.?? The only??thing??she is using on a regular??basis??are her meloxicam and omeprazole. ? Review of Systems Patient denies significant change in weight, headaches, vision changes, rashes, respiratory symptoms, chest pain, GI symptoms, joint pains, urinary symptoms, and depressive symptoms. Physical Exam Vitals & Measurements HR:??64?? BP:??92/56?? HT:??66??in?? WT:??75.62??kg?? WT:??166.36??lb?? BMI:??26.8?? General: In no acute distress. Alert & oriented. Behavior and affect appropriate to situation Skin: Warm and dry with no rash or suspicious lesions noted. CV: Regular rate and rhythm without murmur. Chest: Respirations even and unlabored. Lungs clear to auscultation. No rhonchi. No crackles. No wheezing. Assessment/Plan Hypercholesteremia(Pure hypercholesterolemia, unspecified: E78.00) No changes,??patient had adjusted her diet, will check??cholesterol today and see how??her??LDL looks.?? We had??discussed treatments??last year and she was not anxious to??do that?? She has??had problems with??statins before. ? Ordered: Office Visit Level 4 Established 30-39 min 92544 Return to Clinic, Return in 6 months ?? Hypothyroidism(Hypothyroidism, unspecified: E03.9) Stable at??this??time, continue??to monitor? Ordered: Office Visit Level 4 Established 30-39 min 15698 Return to Clinic, Return in 6 months ?? Osteoarthritis(Unspecified osteoarthritis, unspecified site: M19.90) Ordered: Office Visit Level 4 Established 30-39 min 66996 Return to Clinic, Return in 6 months ?? Postmenopausal(Asymptomatic menopausal state: Z78.0) dexa Ordered: BD Bone Densitometry Office Visit Level 4 Established 30-39 min 93818 Return to Clinic, Return in 6 months ?? Screening for breast cancer(Encounter for screening mammogram for malignant neoplasm of breast: Z12.31) screening mammo Ordered: MA Mammo Screen Bilat Digital Office Visit Level 4 Established 30-39 min 00112 Return to Clinic, Return in 6 months ?? Vaginal atrophy(Postmenopausal atrophic vaginitis: N95.2) She would like??to continue estradiol cream?? Ordered: Office Visit Level 4 Established 30-39 min 82153 Return to Clinic, Return in 6 months ?? Orders: CMP Lipid Panel with calculated LDL TSH Problem List/Past Medical History Bloating: ?? Actinic [...] (12/02/2014)???Bilateral SI Joint injections (06/12/2014)???Spinal Injections with [employer] ()???Coccygeal Injection (09/11/2013)???Diaphragm procedure (2004)???Hysterectomy (1989)??? section (1973)???Appendectomy (1954)?C5-7 ACDF Medications Home Medications (4) Active acetaminophen 325 mg oral tablet??975 mg,Start_date: 07/11/22,Refills: 0, By mouth, QID estradiol 0.1 mg/g vaginal cream??1 g,Start_date: 06/21/28,Refills: 7, VAG, at bedtime meloxicam 15 mg oral tablet??15 mg = 1 tab,Start_date: 09/14/22,Refills: 0, By mouth, Daily omeprazole??20 mg,Start_date: 12/02/21,Refills: 0, By mouth, Daily Allergies statins??(Myalgia) Social History Alcohol Denies Employment/School Status: Retired. Exercise Home/Environment Marital status . Seatbelt use: Always. Hobbies: horses. Tattoos: No. place: [place]. Water source: well. Nutrition/Health Type of diet: No Diet Restrictions. Caffeine intake amount: 1-2 drinks/day. Calcium intake: Adequate Intake. Sun exposure: Frequently - w/o sunscreen. Sexual High risk behavior: No. Substance Abuse Denies Tobacco Smoking Status: Former smoker. Smokeless tobacco use: Never. Has the patient smoked in the last 365days, even once? No. Family History Lung cancer: MOTHER. Other Fall Risk History of Falls in Last 3 Months: Yes (09/14/22) Impaired Judgment: Yes (09/14/22) Agitation: No (09/14/22) Impaired Gait Fall Risk: No (09/14/22) Dizziness Vertigo: No (09/14/22) Incontinence: No (09/14/22) Fall Risk Score Howard: 5 (09/14/22) PHQ Feeling Down, Depressed, Hopeless: 0 (09/14/22) Little Interest - Pleasure in Activities: 0 (09/14/22) Electronically signed by:Lois Bran MD 09/15/22 12:46 Patient Care team information Care Team Personnel Name: Lois Bran MD Position: PX Physician - Family Practice Member Role: Primary Care Physician Address: Address: [address] [place] [address]- Care Team Related Persons Name: MAYELA PHELPS JR Address: home [address] [place], [place] [phone] [facility] Address: mailing [address] [place], [place] [phone] [facility] Name: RADHA MARMOLEJO
--- OUTSIDE RECORDS SUMMARY | 2023-01-05 09:01 | XMS_ITS | Continuity of Care Document ---
Author Name Unknown Organization [facility] Address [address] [place] [address]- Care Team Providers Care Agile Scrum Master Name Role Phone Lois Bran MD Primary Care Physician [phone] Encounter 11/02/22 - 11/03/22 [facility] [address] [place] [address]- [place] Encounter Diagnosis Spondylolisthesis(Discharge Diagnosis) - 11/02/22 Lumbar spondylosis(Discharge Diagnosis) - 11/02/22 Attending Physician: Lois Bran MD Allergies, Adverse Reactions, Alerts Substance Reaction Severity Status cortisone muscles in legs jump, cramps Moderate Active statins 1 Myalgia Moderate Active 1MUSCLE PAIN Assessment and Plan Future Appointments Appointment Date:11/16/2022 12:15:00 PM Scheduled Provider: Location:[facility] Procedure Appointment Type:Rad Appointment Date:11/16/2022 12:30:00 PM Scheduled Provider:Ernie Flowers MD Location:[facility] Appointment Type:Post-Op Appointment Date:05/15/2023 09:00:00 AM Scheduled Provider:Lois Bran MD Location:[facility] Appointment Type:Established Patient Future Scheduled Tests [...] Reason: Other : late entry 3Location History: [place] 4Location [place]: [place] 5Location History: [place] 6Location History: [place] Medications acetaminophen 325 mg oral tablet 975 mg, By mouth, QID, # 84 tab, Refill(s) 0, Pharmacy: [facility], [id number], TAB, 975 mg By mouth QID, 73.4, 10/19/22 9:09:00 CDT, kg, Weight Start Date: 10/19/22 Status: Ordered celecoxib 200 mg oral capsule 200 mg = 1 cap, By mouth, BID, # 14 cap, Refill(s) 0, Pharmacy: [facility], [id number], CAP, 1 cap By mouth BID, 73.4, 10/19/22 9:09:00 CDT, kg, Weight Start Date: 10/19/22 Status: Ordered Colace 100 mg oral capsule 100 mg = 1 cap, By mouth, BID, PRN for constipation, # 28 cap, Refill(s) 0, Pharmacy: [facility], [id number], 1 cap By mouth BID,x14 Days,PRN:for constipation, 73.4, 10/19/22 9:09:00 CDT, kg, Weight Start Date: 10/19/22 Stop Date: 11/02/22 Status: Ordered ergocalciferol 1.25 mg (50,000 intl units) oral capsule 50,000 IntUnit = 1 cap, By mouth, QW (once a week), # 12 cap, Refill(s) 0, [id number], [id number], 1 cap By mouth QW (once a week), 75.18, 10/05/22 12:13:00 CDT, kg, Weight Start Date: 10/05/22 Status: Ordered estradiol 0.1 mg/g vaginal cream 1 = g, VAG, at bedtime, Use 2-3 times a week prn, # 42.5 g, Refill(s) 7, Route to Pharmacy Electronically, Pharmacy: [facility] #[id number], [id number], 1 g VAG at bedtime,Instr:Use 2-3 times a week prn, 74.55, 06/19/22... Start Date: 06/21/28 Status: Ordered gabapentin 300 mg oral capsule 300 mg = 1 cap, By mouth, TID, # 21 cap, Refill(s) 0, Pharmacy: [facility], [id number], 1 cap By mouth TID, 73.4, 10/19/22 9:09:00 CDT, kg, Weight Start Date: 10/19/22 Status: Ordered omeprazole 20 mg, By mouth, at bedtime, 0, 12/02/21 8:58:00 CDT, Substitution Permitted Start Date: 12/02/21 Status: Ordered ondansetron 4 mg oral tablet 4 mg = 1 tab, By mouth, Q8H, # 15 tab, Refill(s) 0, Pharmacy: [facility], [id number], 1 tab By mouth Q8H, 73.4, 10/19/22 17:22:00 CDT, kg, Weight Start Date: 10/20/22 Stop Date: 10/20/22 Status: Ordered oxyCODONE 5 mg oral tablet 5 mg, = 1 tab, By mouth, Q4H, PRN as needed for pain, for postop pain control following spine surgery, 42 tab, 0, 0, Substitution Permitted, [facility] #[id number], 66, Height, 10/19/22 9:09:00 CDT, in, 73.4, Weight, 10/19/22 17:22:00 CDT, kg Start Date: 10/31/22 Status: Ordered Robaxin 500 mg oral tablet 500 mg = 1 tab, By mouth, QID, PRN Muscle Spasms, # 56 tab, Refill(s) 0, Pharmacy: [facility] #[id number], [id number], 1 tab By mouth QID,x14 Days,PRN:Muscle Spasms, 73.4, 10/19/22 17:22:00 CDT, kg, Weight Start Date: 10/31/22 Stop Date: 11/14/22 Status: Ordered Problem List Condition Confirmation Course [...] Joint injections 06/12/14 Completed Spinal Injections with [employer] 04/2014 Completed Coccygeal Injection 09/11/13 Compl eted Diaphragm procedure 2004 Compl eted Hysterectomy 1989 Completed section 1973 Complete d Appendectomy 1954 Completed 8 Completed [...] to oldest [Reference Range]: 1 Blood Pressure 128/60 (11/02/22 10:54 AM) Height (inches) (Clinical) 66 in (11/02/22 10:54 AM) Weight (kg) (Clinical) 75.45 kg (11/02/22 10:54 AM) BMI (Clinical) 26.8 kg/m2 (11/02/22 10:54 AM) Social History Social History Type Response [...] Safety Implantable Status Assigning Authority Unknown Unknown [id number] Unknown 04/04/27 Unknown Unknown Active Unkn own Unknown [id number] Unknown Unknown 03/03/24 Unknown Unknown Active Unknown Unknown [id number] Unknown Unknown 08/07/24 Unknown Unknown Active Unknown Unknown [id number]- 013 Unknown Unknown 09/12/24 Unknown Unknown Active Unknown Procedure Provider Procedure Date Device Type Site Unknown Unknown 10/19/22 Unknown Spine - Lumbar Device Identifier Serial Number Lot or Batch Number Manufacturing Date Expiration Date Distinct Identification Code MRI Safety Implantable Status Assigning Authority Unknown Unknown [id number] Unknown 02/02/24 Unknown Unknown Active Unknown Unknown [id number] Unknown Unknown 03/08/24 Unknown Unknown Active Unknown Unknown Unknown [id number] Unknown 04/04/27 Unknown Unknown Active Unkn own Unknown Unknown [id number] 2 Unknown 06/03/25 Unknown Unknown Active Unknown Unknown Unknown [id number] Unknown 04/04/27 Unknown Unknown Active Unkn own Unknown [id number]- 057 Unknown Unknown 09/12/24 Unknown Unknown Active [...] Code MRI Safety Implantable Status Assigning Authority [id number] [id number]- [id number] Unknown Unknown 03/17/24 Unknown Unknown Active GS1 [id number] [id number]- 163 Unknown Unknown 03/17/24 Unknown Unknown Active GS1 Unknown Unknown [id number] 85 Unknown 03/09/27 Unknown Unknown Active Unknown Unknown Unknown [id number] 69 Unknown 12/15/26 Unknown Unknown Active Unknown Unknown Unknown Unknown Unknown Unknown Unknown Unknown Active Unk nown Unknown Unknown Unknown Unknown Unknown Unknown Unknown Active Unk nown Patient Care team information Care Team Personnel Name: Lois Bran MD Position: PX Physician - Family Practice Member Role: Primary Care Physician Address: Address: [address], [place] [email or web address] Care Team Related Persons Name: MAYELA PHELPS JR Address: home [address] [place], [place] [phone] [facility] Address: mailing [address] [place], [place] [phone] [facility] Name: RADHA MARMOLEJO
--- OUTSIDE RECORDS SUMMARY | 2023-01-05 09:01 | XMS_ITS | Continuity of Care Document ---
Author Name Unknown Organization [facility] Address [address] [place] [address]- Care Team Providers Care Consultant Rn Name Role Phone Yina [place], Lois Cunningham Primary Care Physician Encounter [facility] Number [id number] Date(s): 10/19/22 - 10/24/22 [facility] [address] [place] [address] [phone] Encounter Diagnosis Spondylolisthesis, lumbar region(Discharge Diagnosis) - 10/19/22 Other specified health status(Discharge Diagnosis) - 10/20/22 Discharge Disposition: .Discharge to Home (Routine) Attending Physician: Ernie Flowers MD Admitting Physician: Ernie Flowers MD Allergies, Adverse Reactions, Alerts Substance Reaction Severity Status cortisone muscles in legs jump, cramps Moderate Active statins 1 Myalgia Moderate Active 1MUSCLE PAIN Assessment and Plan Extracted from: Title:Instructions to Patients Author:Richard Hopper Date:10/24/22 [facility] How to Use a Back Brace A back brace is a form-fitting device that wraps around your torso to support your lower back, abdomen, and hips. A back brace can: ? ? Relieve back pain or correct a medical condition related to the back, such as abnormal curvature of the spine (scoliosis). It can also maintain or correct the shape of the spine. ? ? Prevent a spinal problem from getting worse. ? ? Take pressure off the layers of tissue (disks) between the bones of the spine (vertebrae). ? ? Keep your back and spine in place while you heal from an injury or recover from surgery. Back braces can be either plastic (rigid brace) or soft elastic (dynamic brace). ? ? A rigid brace usually covers both the front and back of the entire upper body. ? ? A soft dynamic brace may cover only the lower back and abdomen and may fasten with self-adhesive elastic straps. Your health care provider will recommend the proper brace for your needs and medical condition. What are the risks? ? ? Further back problems. Be sure to wear the brace exactly as instructed by your health care provider to help avoid this. ? ? Trouble sleeping. Wearing a back brace may be uncomfortable. ? ? Difficulty performing some other activities. ? ? Skin sores. If the back brace is not worn as instructed, it may cause rubbing and pressure on your skin, which can develop sores. How to use a back brace Different types of braces will have different instructions for use. Follow instructions from your health care provider about: ? ? How to put on the brace. ? ? When and how often to wear the brace. In some cases, braces may need to be worn for a long time. For example, a brace may need to be worn for 16? 23 hours a day when used for scoliosis. ? ? How to take off the brace. ? ? Any safety tips you should follow when wearing the brace. These may include the following: ? ? Move carefully while wearing the brace. The brace restricts your movement and could lead to additional injuries. ? ? Use a cane or walker for support if you feel unsteady. ? ? Sit in high, firm chairs. It may be difficult to stand up from low, soft chairs. ? ? Check the skin around the brace every day. Tell your health care provider about any concerns. How to care for a back brace ? ? Do not let the back brace get wet. Typically, you will take the brace off for bathing and then put it back on afterward. ? ? If you have a rigid brace, be sure to store it in a safe place when you are not wearing it. This will help to prevent damage. ? ? Clean or wash the back brace with mild soap and water as told by your health care provider. Contact a health care provider if: ? ? Your brace gets damaged. ? ? You have pain or discomfort when wearing the brace. ? ? Your back pain is getting worse or is not improving over time. ? ? You notice redness or skin breakdown from wearing the brace. Summary ? ? You may need to wear a back brace to relieve back pain or to correct a medical condition related to the back, such as abnormal curvature of the spine (scoliosis). ? ? Follow instructions as told by your health care provider about how to use the brace and how to take care of it. ? ? A back brace may not help if you do not wear it as directed by your health care provider. Wear the brace exactly as instructed to prevent further back problems. ? ? Move carefully while wearing the brace. ? ? Contact a health care provider if you have pain or discomfort when wearing the back brace or if your back pain is getting worse or is not improving over time. This information is not intended to replace advice given to you by your health care provider. Make sure you discuss any questions you have with your health care provider. Document Revised: 08/25/2020 Document Reviewed: 08/25/2020 [employer] Patient Education ?? 2021 [employer] How to Prevent Constipation After Surgery Constipation is a common problem after surgery. Many things can make constipation more likely after a surgery, including: ? ? Certain medicines, especially numbing medicines (anesthetics) and very strong pain medicines called opioids. ? ? Feeling stressed because of the surgery. ? ? Eating different foods than normal. ? ? Being less active. Symptoms of constipation include: ? ? Having fewer than three bowel movements a week. ? ? Straining to have a bowel movement. ? ? Having hard, dry, or vclzse-dxiw-mmgfit stools (feces). ? ? Discomfort in the lower abdomen, such as cramps or bloating. ? ? Not feeling relief after having a bowel movement. ? ? Nausea and vomiting. You can take steps to help prevent constipation after surgery. Follow these instructions at home: Eating and drinking ? ? Eat foods that have a lot of fiber in them, such as beans, bran, whole grains, and fresh fruits and vegetables. ? ? Limit foods that are high in fat and processed sugars, such as fried or sweet foods. These include english fries, hamburgers, cookies, and candy. ? ? Take a fiber supplement as told by your health care provider. If you are not taking a fiber supplement and you think you are not getting enough fiber from foods, talk to your health care provider about adding a fiber supplement to your diet. ? ? Drink enough fluid to keep your urine pale yellow. ? ? Drink clear fluids, especially water. Avoid drinking alcohol, caffeine, and soda. These can make constipation worse. Activity ? ? After surgery, return to your normal activities slowly, or when your health care provider says it is okay. ? ? Start walking as soon as you can. Try to go a little farther each day. ? ? Once your health care provider approves, do some sort of regular exercise. This helps prevent constipation. Bowel movements ? ? Go to the restroom when you have the urge to go. Do not hold it in. ? ? Try drinking something hot to get a bowel movement started. ? ? Keep track of how often you use the restroom. Medicines ? ? Take mpew-pul-yjwfclj and prescription medicines only as told by your health care provider. ? ? Talk to your health care provider about medicines that may help prevent constipation, particularly if you have a history of constipation. Your health care provider may suggest a stool softener, laxative, or fiber supplement. ? ? Do not take any medicines without talking to your health care provider first. Contact a health care provider if: ? ? You used stool softeners or laxatives and still have not had a bowel movement within 24? 48 hours after using them. ? ? You have not had a bowel movement in 3 days. ? ? You have a fever. Get help right away if you have: ? ? Constipation that lasts for more than 4 days or if your symptoms get worse. ? ? Bright red blood in your stool. ? ? Pain in the abdomen or rectum. ? ? Very bad cramping. ? ? Thin, pencil-like stools. ? ? Unexplained weight loss. Summary ? ? Constipation is a common problem after surgery. Many things can make constipation more likely after a surgery, including certain medicines, eating different foods than normal, and being less active. ? ? Symptoms of constipation include having fewer than three bowel movements a week, straining to have a bowel movement, and cramps or bloating in the lower abdomen. ? ? To help prevent constipation, you should eat foods that are high in fiber, drink plenty of fluids, and get regular physical activity. ? ? Your health care provider may suggest medicines, such as stool softeners or laxatives, to help prevent constipation. This information is not intended to replace advice given to you by your health care provider. Make sure you discuss any questions you have with your health care provider. Document Revised: 04/07/2020 Document Reviewed: 04/07/2020 [employer] Patient Education ?? 2021 [employer] Pain Medicine Instructions You may need pain medicine after an injury or illness. Two common types of pain medicine are: ? ? Non-opioid pain medicine. This includes NSAIDs. ? ? Opioid pain medicine. These may be called opioids. Pain medicine may not make all of your pain go away. It should make you comfortable enough to move, breathe, and do normal activities. How can pain medicines affect me? Pain medicines can cause side effects such as: ? ? Vomiting or feeling like you may vomit. ? ? Belly pain. Opioids can cause other side effects, such as: ? ? Trouble pooping (constipation). ? ? Feeling very sleepy. ? ? Confusion. ? ? Trouble breathing. ? ? Addiction to opioids. This means that you will take the medicine even though it hurts your health. Taking opioids for longer than 3 days raises your risk of these side effects. Taking opioids for a long time can affect how well you can do daily tasks. It also puts you at risk for: ? ? Car crashes. ? ? Depression. ? ? Suicide. ? ? Heart attack. If you do not take pain medicines correctly, you may be at risk for: ? ? Liver problems. ? ? Kidney problems. ? ? Taking too much of the medicine (overdose). This can lead to . What actions can I take to lower my risk of problems? Know your treatment plan Talk about your treatment plan with your doctor. Both you and your doctor should agree on how you should be treated. ? ? Talk about the goals of your treatment, including: ? ? How much pain you might expect to have. ? ? How you will manage the pain. ? ? Ask your doctor if you can see other doctors who can treat your pain without using medicine. This can include physical therapy and counseling. ? ? Talk about the risks and benefits of taking these medicines for your condition. ? ? Tell your doctor about the amount of medicines you take and about any use of drugs or alcohol. ? ? Get your pain medicine prescriptions from only one doctor. ? ? Keep all follow-up visits. Take your medicine as told ? ? Take pain medicine exactly as told by your doctor. Take it only when you need it. ? ? If your pain is not too bad, you may take less medicine if your doctor allows. ? ? If you have no pain, do not take the medicine unless your doctor tells you to take it. ? ? If your pain is very bad, do not take more medicine than your doctor tells you to take. Call your doctor to know what to do. ? ? If your pain medicine has acetaminophen in it, do not take any other acetaminophen while you are taking this medicine. Too much can damage the liver. ? ? Write down the times when you take your pain medicine. Look at the times before you take your next dose. ? ? Take other iphf-ngf-rhyjste or prescription medicines only as told by your doctor. Avoid certain activities While you are taking prescription pain medicine, and for 8 hours after your last dose: ? ? Do not drive. ? ? Do not use machinery. ? ? Do not use power tools. ? ? Do not sign legal documents. ? ? Do not drink alcohol. ? ? Do not take sleeping pills. ? ? Do not take care of children by yourself. ? ? Do not do any activities that involve climbing or being in high places. ? ? Do not go to a evans, river, ocean, spa, or swimming pool unless an adult is nearby who can monitor and help you. Keep pets and people safe ? ? Store your medicine as told by your doctor. Keep it where children and pets cannot reach it. ? ? Do not share your pain medicine with anyone. ? ? Do not save unused pills. If you have unused pills, you can: ? ? Bring them to a take-back program. ? ? Bring them to a pharmacy that takes back unused pills. ? ? Throw them in the trash. Check the medicine label or package insert to see if it is safe to throw it out. If it is safe, take the medicine out of the container. Mix it with something that makes it unusable, such as pet waste. Then put the medicine in the trash. ? ? Flush them down the toilet only if this is safe to do. To find out: ? ? Check the label or package insert of your medicine. ? ? Read information given by the Food and Drug Administration website: fda.gov Treat or prevent constipation You may need to take these actions to prevent or treat constipation: ? ? Drink enough fluid to keep your pee (urine) pale yellow. ? ? Take qqou-ozg-gdyasdy or prescription medicines. ? ? Eat foods that are high in fiber. These include beans, whole grains, and fresh fruits and vegetables. ? ? Limit foods that are high in fat and sugar. These include fried or sweet foods. Contact a doctor if: ? ? Your medicine is not helping with your pain. ? ? You have a rash. ? ? You feel sick to your stomach. ? ? You throw up. ? ? You feel depressed. Get help right away if: ? ? You have trouble breathing. This means: ? ? Breathing that is slower than normal. ? ? Breathing that is more shallow than normal. ? ? You are confused. ? ? You are sleeping a lot, or you have trouble staying awake. ? ? Your skin or lips turn pale or bluish in color. ? ? You tongue swells. ? ? You have thoughts of harming yourself or harming others. These symptoms may be an emergency. Get help right away. Call your local emergency services (729 in the [place] ? ? Do not wait to see if the symptoms will go away. ? ? Do not drive yourself to the hospital. Get help right away if you feel like you may hurt yourself or others, or have thoughts about taking your own life. Go to your nearest emergency room or: ? ? Call your local emergency services (677 in the [place] ? ? Call the National Suicide Prevention Lifeline at or 556 in the [place] This is open 24 hours a day. ? ? Text the Crisis Text Line at 429026. Summary ? ? Pain medicine can help lower your pain. It may also cause side effects. ? ? Take your pain medicine exactly as told by your doctor. ? ? Talk with your doctor about other ways to manage your pain. ? ? Ask what activities you should avoid while taking pain medicine. This information is not intended to replace advice given to you by your health care provider. Make sure you discuss any questions you have with your health care provider. Document Revised: 12/14/2021 Document Reviewed: 09/28/2021 [employer] Patient Education ?? 2021 [employer] Fall Prevention in the Home, Adult Falls can cause injuries and affect people of all ages. There are many simple things that you can do to make your home safe and to help prevent falls. Ask for help when making these changes, if needed. What actions can I take to prevent falls? General instructions ? ? Use good lighting in all rooms. Replace any light bulbs that burn out, turn on lights if it is dark, and use night-lights. ? ? Place frequently used items in eucm-vc-ayplh places. Lower the shelves around your home if necessary. ? ? Set up furniture so that there are clear paths around it. Avoid moving your furniture around. ? ? Remove throw rugs and other tripping hazards from the floor. ? ? Avoid walking on wet floors. ? ? Fix any uneven floor surfaces. ? ? Add color or contrast paint or tape to grab bars and handrails in your home. Place contrasting color strips on the first and last steps of staircases. ? ? When you use a stepladder, make sure that it is completely opened and that the sides and supports are firmly locked. Have someone hold the ladder while you are using it. Do not climb a closed stepladder. ? ? Know where your pets are when moving through your home. What can I do in the bathroom? ? ? Keep the floor dry. Immediately clean up any water that is on the floor. ? ? Remove soap buildup in the tub or shower regularly. ? ? Use nonskid mats or decals on the floor of the tub or shower. ? ? Attach bath mats securely with double-sided, nonslip rug tape. ? ? If you need to sit down while you are in the shower, use a plastic, nonslip stool. ? ? Install grab bars by the toilet and in the tub and shower. Do not use towel bars as grab bars. What can I do in the bedroom? ? ? Make sure that a bedside light is easy to reach. ? ? Do not use oversized bedding that reaches the floor. ? ? Have a firm chair that has side arms to use for getting dressed. What can I do in the kitchen? ? ? Clean up any spills right away. ? ? If you need to reach for something above you, use a sturdy step stool that has a grab bar. ? ? Keep electrical cables out of the way. ? ? Do not use floor egyptian or wax that makes floors slippery. If you must use wax, make sure that it is non-skid floor wax. What can I do with my stairs? ? ? Do not leave any items on the stairs. ? ? Make sure that you have a light switch at the top and the bottom of the stairs. Have them installed if you do not have them. ? ? Make sure that there are handrails on both sides of the stairs. Fix handrails that are broken or loose. Make sure that handrails are as long as the staircases. ? ? Install non-slip stair treads on all stairs in your home. ? ? Avoid having throw rugs at the top or bottom of stairs, or secure the rugs with carpet tape to prevent them from moving. ? ? Choose a carpet design that does not hide the edge of steps on the stairs. ? ? Check any carpeting to make sure that it is firmly attached to the stairs. Fix any carpet that is loose or worn. What can I do on the outside of my home? ? ? Use bright outdoor lighting. ? ? Regularly repair the edges of walkways and driveways and fix any cracks. ? ? Remove high doorway thresholds. ? ? Trim any shrubbery on the main path into your home. ? ? Regularly check that handrails are securely fastened and in good repair. Both sides of all steps should have handrails. ? ? Install guardrails along the edges of any raised decks or porches. ? ? Clear walkways of debris and clutter, including tools and rocks. ? ? Have leaves, snow, and ice cleared regularly. ? ? Use sand or salt on walkways during winter months. ? ? In the garage, clean up any spills right away, including grease or oil spills. What other actions can I take? ? ? Wear closed-toe shoes that fit well and support your feet. Wear shoes that have rubber soles or low heels. ? ? Use mobility aids as needed, such as canes, walkers, scooters, and crutches. ? ? Review your medicines with your health care provider. Some medicines can cause dizziness or changes in blood pressure, which increase your risk of falling. Talk with your health care provider about other ways that you can decrease your risk of falls. This may include working with a physical therapist or software trainer to improve your strength, balance, and endurance. Where to find more information ? ? Centers for Disease Control and Prevention, [place]: www.cdc.gov ? ? National [place] on Aging: www.jessie.nih.gov Contact a health care provider if: ? ? You are afraid of falling at home. ? ? You feel weak, drowsy, or dizzy at home. ? ? You fall at home. Summary ? ? There are many simple things that you can do to make your home safe and to help prevent falls. ? ? Ways to make your home safe include removing tripping hazards and installing grab bars in the bathroom. ? ? Ask for help when making these changes in your home. This information is not intended to replace advice given to you by your health care provider. Make sure you discuss any questions you have with your health care provider. Document Revised: 12/22/2020 Document Reviewed: 12/22/2020 [employer] Patient Education ?? 2021 [email or web address] Spinal Fusion, Adult Spinal fusion is a procedure to join two or more bones in the spine (vertebrae). This procedure stops the vertebrae from moving and rubbing against each other. The goal of this procedure is to relieve pain and prevent deformity and weakening of the spine. During a spinal fusion procedure, bone material (graft) is put in between the affected vertebrae to help them fuse. The bone graft may be taken from another part of your body, from a donor, or from artificial bone material. Hardware such as rods, screws, metal plates, or cages can be inserted to stabilize the vertebrae while they heal. This procedure may be used to treat many conditions, including: ? ? Spinal injury. ? ? Herniated disk. ? ? Abnormal curvatures of the spine, such as scoliosis or kyphosis. ? ? Infections or tumors in the spine. ? ? Narrowing of the spine (spinal stenosis). ? ? A vertebra slipping out of place (spondylolisthesis). Tell a health care provider about: ? ? Any allergies you have. ? ? All medicines you are taking, including vitamins, herbs, eye drops, creams, and rlqw-mbd-uasmhgh medicines. ? ? Any problems you or family members have had with anesthetic medicines. ? ? Any blood disorders you have. ? ? Any surgeries you have had. ? ? Any medical conditions you have. ? ? Whether you are or may be . What are the risks? Generally, this is a safe procedure. However, problems may occur, including: ? ? Infection. ? ? Bleeding. ? ? Allergic reactions to medicines or dyes. ? ? Damage to nearby structures or organs, such as nerves near the spine. ? ? Leaking of spinal fluid. ? ? Blood clots. ? ? Trouble controlling urination or bowel movements. ? ? The vertebrae not fusing together completely. What happens before the procedure? Staying hydrated Follow instructions from your health care provider about hydration, which may include: ? ? Up to 2 hours before the procedure ? you may continue to drink clear liquids, such as water, clear fruit juice, black coffee, and plain tea. Eating and drinking restrictions Follow instructions from your health care provider about eating and drinking, which may include: ? ? 8 hours before the procedure ? stop eating heavy meals or foods, such as meat, fried foods, or fatty foods. ? ? 6 hours before the procedure ? stop eating light meals or foods, such as toast or cereal. ? ? 6 hours before the procedure ? stop drinking milk or drinks that contain milk. ? ? 2 hours before the procedure ? stop drinking clear liquids. Medicines Ask your health care provider about: ? ? Changing or stopping your regular medicines. This is especially important if you are taking diabetes medicines or blood thinners. ? ? Taking medicines such as aspirin and ibuprofen. These medicines can thin your blood. Do not take these medicines unless your health care provider tells you to take them. ? ? Taking lprw-tax-nzaaxng medicines, vitamins, herbs, and supplements. Tests ? ? You will have blood and urine samples taken. ? ? You may have imaging tests, such as X-ray, CT scan, or MRI. Surgery safety Ask your health care provider: ? ? How your surgery site will be marked. ? ? What steps will be taken to help prevent infection. These may include: ? ? Removing hair at the surgery site. ? ? Washing skin with a germ-killing soap. ? ? Taking antibiotic medicine. General instructions ? ? Do not use any products that contain nicotine or tobacco for at least 4 weeks before the procedure. These products include cigarettes, e-cigarettes, and chewing tobacco. If you need help quitting, ask your health care provider. ? ? Plan to have a responsible adult take you home from the hospital or clinic. ? ? Plan to have a responsible adult care for you for the time you are told after you leave the hospital or clinic. This is important. What happens during the procedure? ? ? An IV will be inserted into one of your veins. ? ? You may be given a medicine to help you relax (sedative). ? ? You will be given a medicine to make you fall asleep (general anesthetic). ? ? If bone from another part of your body is being used to fill the space between your vertebrae: ? ? An incision will be made over the site of the bone graft. Often, the bone is taken from the hip (pelvic) bone. ? ? A small part of the bone will be removed. ? ? An incision will be made over the vertebrae that will be fused. This incision may be on your back, abdomen, or side. ? ? The muscles will be moved aside so the surgeon can see the vertebrae. ? ? If you are having this procedure to treat a herniated disk, part of the disk will be removed. ? ? The space between the vertebrae will be filled with bone from another part of your body, bone from a bone donor, or artificial bone material. ? ? Screws and rods or metal plates may be put in to stabilize the vertebrae while they fuse. ? ? The muscles will be moved back into place. ? ? A small tube (drain) may be placed near one of the incisions to drain extra fluid from the site of surgery. ? ? A thin, flexible tube (chest tube) may be inserted into the space between your lung and chest wall to drain extra fluid that collects outside of the lung. ? ? Your incisions will be closed. ? ? A bandage or dressing may be used to cover your incisions. The procedure may vary among health care providers and hospitals. What happens after the procedure? ? ? Your blood pressure, heart rate, breathing rate, and blood oxygen level will be monitored until you leave the hospital or clinic. ? ? You will be given medicine as needed for pain. ? ? You will continue to receive fluids and medicines through an IV. ? ? You may be given a brace to wear while you heal. ? ? You may have to wear compression stockings. These stockings help to prevent blood clots and reduce swelling in your legs. ? ? While in bed, you will be assisted in changing positions frequently by turning your whole body without twisting your back (log rolling technique). ? ? You will be taught how to move correctly and how to stand and walk. ? ? Do not drive until your health care provider approves. Summary ? ? Spinal fusion is a procedure to join two or more bones in the spine. This procedure stops the vertebrae from moving and rubbing against each other. ? ? Before the procedure, follow instructions from your health care provider about what to eat and drink. You may also need to stop or change your regular medicines. ? ? While in bed after surgery, you will be assisted in changing positions frequently by turning your whole body without twisting your back (log rolling technique). You will also be taught how to move correctly and how to stand and walk. This information is not intended to replace advice given to you by your health care provider. Make sure you discuss any questions you have with your health care provider. Document Revised: 09/08/2020 Document Reviewed: 09/08/2020 [employer] Patient Education ?? 2021 [employer] Negative Pressure Wound Therapy Home Guide Negative pressure wound therapy (NPWT) uses a sponge or foam-like material (dressing) placed on or inside the wound. The wound is then covered and sealed with a cover dressing that sticks to your skin (is adhesive) to keep air out. A tube is attached to the cover dressing, and this tube connects to a small pump. The pump removes drainage from the wound. NPWT helps to increase blood flow to the wound and heal it from the inside. NPWT also helps pull the edges of the wound together and removes fluids and germs from the wound. NPWT may also be called wound vac. What are the risks? NPWT is usually safe to use. However, problems can occur, including: ? ? Skin irritation from the dressing adhesive. ? ? Bleeding. ? ? Infection. Signs of infection include: ? ? More redness, swelling, or pain. ? ? More fluid or blood. ? ? Warmth or hardness around the wound. ? ? Pus or a bad smell. ? ? Red streaks leading from the wound. ? ? Dehydration. Wounds with large amounts of drainage can cause excessive body fluid loss. ? ? Pain. Supplies needed: ? ? Wound cleanser or salt-water solution (saline). ? ? Skin protectant. This may be a wipe, film, or spray. ? ? Clean or germ-free (sterile) scissors. ? ? New sponge or foam. ? ? Cover dressing. ? ? Gauze pad. ? ? Tape. ? ? Also have available: ? ? Soap and water, or hand first aid trainer. ? ? Disposable gloves. ? ? Eye protection. ? ? A disposable garbage bag. ? ? Protective clothing. How to change your dressing Change the dressing as scheduled, if the dressing loses suction, or the pump is off for 2 hours or more. Prepare to change your dressing 1. Take pain medicine 30 minutes before changing the dressing if told by your health care provider. 2. Wash your hands with soap and water for at least 20 seconds before you change the dressing. If soap and water are not available, use hand first aid trainer 3. Dry your hands with a clean towel. 4. Set up a clean station for wound care and set a plastic bag on or near your work surface for trash. 5. Open the dressing package so that the sponge dressing remains on the inside of the package. 6. Wear gloves, protective clothing, and eye protection. Remove the old dressing 1. Turn off the pump and disconnect the tubing from the dressing. 2. Carefully remove the adhesive cover dressing in the direction of your hair growth. 3. Remove the sponge dressing that is inside the wound. If the sponge sticks, use a wound cleanser or saline solution to wet the sponge and help it come off more easily. 4. Throw the old sponge and cover dressing supplies into the garbage bag. 5. Check the wound for signs of infection, including a bad smell, drainage (bleeding or pus), or new color changes (black, waddell, yellow, or white) in the wound. 6. Remove your gloves by grabbing the cuff and turning the glove inside out. Place the gloves in the trash immediately. 7. Wash your hands with soap and water for at least 20 seconds. If soap and water are not available, use hand first aid trainer. 8. Dry your hands with a clean towel. Clean your wound Wear gloves, protective clothing, and eye protection. Follow your health care provider's instructions on how to clean your wound. You may be told to: 1. Clean the wound using a saline solution or a wound cleanser and a clean gauze pad. 2. Pat the wound dry with a gauze pad. Do not rub the wound. 3. Throw the gauze pad into the garbage bag. 4. Remove your gloves by grabbing the cuff and turning the glove inside out. Place the gloves in the trash immediately. 5. Wash your hands with soap and water for at least 20 seconds. If soap and water are not available, use hand first aid trainer 6. Dry your hands with a clean towel. Apply the new dressing 1. Wear gloves, protective clothing, and eye protection. 2. If told by your health care provider, apply a skin protectant to any skin that will be exposed to adhesive. Let the skin protectant dry. 3. Cut a piece of new sponge dressing and put it on or in the wound. 4. Using clean scissors, cut a nickel-sized hole in the new cover dressing. 5. Apply the cover dressing. 6. Attach the suction tube over the hole in the cover dressing. 7. Take off your gloves. Put them in the plastic bag with the old dressing. Tie the bag shut and throw it away. 8. Wash your hands with soap and water for at least 20 seconds. If soap and water are not available, use hand first aid trainer. 9. Dry your hands with a clean towel. 10. Turn the pump back on. The sponge dressing should collapse. Do not change the settings on the machine without talking to a health care provider. 11. Replace the container in the pump that collects fluid if it is full. Replace the container per the wet machine cutter's instructions or at least once a week, even if it is not full. Follow your health care provider'sinstructions on how often you need to change and apply the new NPWT dressing. General tips and recommendations If the alarm sounds: ? ? Stay calm and prepare to troubleshoot. ? ? Do not turn off the pump or do anything with the dressing. ? ? The alarm may go off for many reasons, including: ? ? The battery is low. Change the battery or plug the device into electrical power. ? ? The dressing has a leak. Find the leak and put tape over the leak. ? ? The fluid collection container is full. Change the fluid container. ? ? Call your health care provider right away if you cannot fix the problem. ? ? Explain to your health care provider what is happening. Follow his or her instructions. General instructions ? ? Change the dressing as scheduled, if the dressing loses suction, or the pump is off for 2 hours or more. ? ? Do not turn off the pump unless told to do so by your health care provider. ? ? Do not turn off the pump for more than 2 hours. If the pump is off or you lose suction to the dressing for more than 2 hours, the dressing will need to be changed. ? ? Check the machine frequently to make sure that therapy is on and that all clamps are open. ? ? Do not use jkmv-pos-bkoaxzq medicated or antiseptic creams, sprays, liquids, or dressings unless told by your health care provider. ? ? Do not take baths, swim, or use a hot tub until your health care provider approves. You may only be allowed to take sponge baths. Ask your health care provider if you may take showers. If your health care provider says it is okay to shower: ? ? Do not take the pump into the shower. ? ? Make sure the wound dressing is protected and sealed. The wound dressing must stay dry. Contact a health care provider if: ? ? You have new pain. ? ? You develop irritation, a rash, or itching around the wound or dressing. ? ? You see new color changes (black, waddell, yellow, or white) in the wound. ? ? The dressing changes are painful or cause bleeding. ? ? The pump has been off for more than 2 hours, and you do not know how to change the dressing. ? ? The pump alarm goes off, and you do not know what to do. Get help right away if: ? ? You have a lot of bleeding. ? ? The wound breaks open. ? ? You have severe pain. ? ? You have signs of infection, such as: ? ? More redness, swelling, or pain. ? ? More fluid or blood. ? ? Warmth or hardness. ? ? Pus or a bad smell. ? ? Red streaks leading from the wound. ? ? A fever. ? ? You see a sudden change in the color or texture of the drainage. ? ? You have signs of dehydration, such as: ? ? Little or no tears, urine, or sweat. ? ? Muscle cramps. ? ? Very dry mouth. ? ? Headache. ? ? Dizziness or confusion. Summary ? ? NPWT uses a sponge or dressing placed on or inside the wound. ? ? NPWT helps to increase blood flow to the wound and heal it from the inside. ? ? Follow your health care provider's instructions on how to clean your wound and how to change the dressing. ? ? Contact a health care provider if you have new pain, an irritation, or a rash, or if the alarm goes off and you do not know what to do. ? ? Get help right away if you have a lot of bleeding, your wound breaks open, or you have severe pain. Also, get help if you have signs of infection. This information is not intended to replace advice given to you by your health care provider. Make sure you discuss any questions you have with your health care provider. Document Revised: 10/17/2021 Document Reviewed: 10/17/2021 [employer] Patient Education ?? 2021 [employer] Spinal Fusion, Adult, Care After This sheet gives you information about how to care for yourself after your procedure. Your doctor may also give you more instructions. If you have problems or questions, contact your doctor. What can I expect after the procedure? After the procedure, it is common to have: ? ? Back pain and stiffness. ? ? Pain in the area around your cut from surgery (incision). Follow these instructions at home: Medicines ? ? Take feyl-lfy-ufdgmcq and prescription medicines only as told by your doctor. These include any medicines for pain or medicines to thin your blood (anticoagulants). ? ? If you were prescribed an antibiotic medicine, take it as told by your doctor. Do not stop it even if you start to feel better. ? ? If told, take steps to prevent problems with pooping (constipation). You may need to: ? ? Drink enough fluid to keep your pee (urine) pale yellow. ? ? Take medicines. You will be told what medicines to take. ? ? Eat foods that are high in fiber. These include beans, whole grains, and fresh fruits and vegetables. ? ? Limit foods that are high in fat and sugar. These include fried or sweet foods. ? ? Ask your doctor if you should avoid driving or using machines while you are taking your medicine. Bleeding precautions If you are taking blood thinners: ? ? Talk with your doctor before taking any medicines that have aspirin or NSAIDs, such as ibuprofen. ? ? Take medicines exactly as told. Take them at the same time each day. ? ? Avoid doing things that could hurt or bruise you. Take action to prevent falls. ? ? Wear an alert bracelet or carry a card that shows you are taking blood thinners. If you have a brace: ? ? Wear the brace as told by your doctor. Take it off only as told by your doctor. ? ? Check the skin around the brace every day. Tell your doctor if you have any concerns. ? ? Loosen the brace if your legs or toes: ? ? Tingle. ? ? Become numb. ? ? Turn cold and blue. ? ? Keep the brace clean. ? ? If the brace is not waterproof: ? ? Do not let it get wet. ? ? Cover it with a watertight covering when you take a bath or shower. Managing pain, stiffness, and swelling If told, put ice on the affected area. To do this: ? ? If you have a removable brace, take it off as told by your doctor. ? ? Put ice in a plastic bag. ? ? Place a towel between your skin and the bag. ? ? Leave the ice on for 20 minutes, 2? 3 times a day. ? ? Take off the ice if your skin turns bright red. This is very important. If you cannot feel pain, heat, or cold, you have a greater risk of damage to the area. Incision care ? ? Follow instructions from your doctor about how to take care of your incision. Make sure you: ? ? Wash your hands with soap and water for at least 20 seconds before and after you change your bandage. If you cannot use soap and water, use hand first aid trainer. ? ? Change your bandage. ? ? Leave stitches or skin glue in place for at least 2 weeks. ? ? Leave tape strips alone unless you are told to take them off. You may trim the edges of the tape strips if they curl up. ? ? Keep your incision clean and dry. ? ? Do not take baths, swim, or use a hot tub. Ask your doctor about taking showers or sponge baths. ? ? Check your incision every day for signs of infection. Check for: ? ? More redness, swelling, or pain. ? ? Fluid or blood. ? ? Warmth. ? ? Pus or a bad smell. Activity ? ? Rest as told by your doctor. ? ? Get up to take short walks every 1 to 2 hours. Ask for help if you feel weak or unsteady. ? ? Follow instructions from your doctor about how to move. Use good posture to help your spine heal. ? ? Do not lift anything at all, or anything that is heavier than the limit you are told, until your doctor says that it is safe. ? ? Do not twist or bend at the waist until your doctor says it is okay. ? ? Protect your back. To do this: ? ? Do not make pushing and pulling motions. ? ? Do not lift anything over your head. ? ? Do not sit or lie down in the same position for a long time. ? ? Do exercises as told by your doctor. General instructions ? ? Do not drive until your doctor says it is okay. ? ? Wear compression stockings as told by your doctor. ? ? Do not take out your drain tube. Follow instructions from your doctor about how to take care of it. ? ? Do not smoke or use any products that contain nicotine or tobacco. If you need help quitting, ask your doctor. ? ? Keep all follow-up visits. Contact a doctor if: ? ? Your pain gets worse or does not get better with medicine. ? ? Your legs become painful, swollen, red, or warm to the touch. ? ? You have any of these signs of infection in your incision: ? ? More redness, swelling, or pain. ? ? Fluid or blood. ? ? Warmth. ? ? Pus or a bad smell. ? ? You have a fever. ? ? You vomit or you feel like you may vomit. ? ? You have new or worse weakness or loss of feeling (numbness) in your legs. ? ? You cannot control when you poop or pee. Get help right away if: ? ? Your pain is very bad. ? ? You have a headache that is worse when you are sitting or standing. ? ? You have chest pain. ? ? You have trouble breathing. These symptoms may be an emergency. Get help right away. Call your local emergency services (911 in the [place] ? ? Do not wait to see if the symptoms will go away. ? ? Do not drive yourself to the hospital. Summary ? ? After the procedure, it is common to have pain in your back and pain in your incision. ? ? Putting ice on the area and taking pain medicines may help to control the pain. Follow directions from your doctor. ? ? Rest and protect your back as much as possible. ? ? Do not twist or bend at the waist. ? ? Rest, but get up to take short walks every 1? 2 hours. This information is not intended to replace advice given to you by your health care provider. Make sure you discuss any questions you have with your health care provider. Document Revised: 09/08/2020 Document Reviewed: 09/08/2020 [employer] Patient Education ?? 2021 [email or web address] Medication Leaflets: Accessing??[email or web address]??Express??Patient??Portal Access medications, test results, radiology reports, and more through [employer] secure patient portal. Please be patient if waiting on lab results, as these can take several days to process. [place] online at??[email or web address]??Use your community medical record number (CMRN) located below to verify your identity on the Self-Enrollment form.We also offer the ability for you to securely connect other health management apps to your health record. See the [employer] Connection link on the website above for more details. Watch [facility] [place] - 2 Patient Education Videos and Access Resources anytime online! Visit [email or web address] Extracted from: Title:Discharge Note Author:Maida Duff Date:10/24/22 Discharge 10/23/22 13:07:00 CDT, Home/Self Care Discharge Follow Up 10/23/22 13:07:00 CDT, Provider/Time: 2 weeks staple/suture removal, 1 month with physician, Readmission Risk F/U 3-5 days Discharge Diet 10/23/22 13:07:00 CDT, Discharge Diet: Regular Discharge Activity 10/23/22 13:07:00 CDT, No lifting more than 10 pounds ? Extracted from: Title:Discharge Note Author:Maida Duff Date:10/23/22 Discharge 10/23/22 13:07:00 CDT, Home/Self Care Discharge Follow Up 10/23/22 13:07:00 CDT, Provider/Time: 2 weeks staple/suture removal, 1 month with physician, Readmission Risk F/U 3-5 days Discharge Diet 10/23/22 13:07:00 CDT, Discharge Diet: Regular Discharge Activity 10/23/22 13:07:00 CDT, No lifting more than 10 pounds ? Future Appointments Appointment Date:11/16/2022 12:15:00 PM Scheduled Provider: Location:[facility] Procedure Appointment Type:Rad Appointment Date:11/16/2022 12:30:00 PM Scheduled Provider:Ernie Flowers MD Location:[facility] Appointment Type:Post-Op Appointment Date:05/15/2023 09:00:00 AM Scheduled Provider:Lois Bran MD Location:[facility] Appointment Type:Established Patient Diagnostic Tests Pending * LTC Facility Discharge CV-19 Screening 10/21/22 Future Scheduled Tests Laboratory* Vitamin D Total [...] Other : late entry 3Location History: [place] 4Location History: [place] 5Location History: [place] 6[place] Medications acetaminophen 325 mg oral tablet 975 mg, By mouth, QID, # 84 tab, Refill(s) 0, Pharmacy: [facility], [id number], TAB, 975 mg By mouth QID, 73.4, 10/19/22 9:09:00 CDT, kg, Weight Start Date: 10/19/22 Status: Ordered celecoxib 200 mg oral capsule 200 mg = 1 cap, By mouth, BID, # 14 cap, Refill(s) 0, Pharmacy: [facility], [id number], CAP, 1 cap By mouth BID, 73.4, 10/19/22 9:09:00 CDT, kg, Weight Start Date: 10/19/22 Status: Ordered Colace 100 mg oral capsule 100 mg = 1 cap, By mouth, BID, PRN for constipation, # 28 cap, Refill(s) 0, Pharmacy: [facility], [id number], 1 cap By mouth BID,x14 Days,PRN:for constipation, 73.4, 10/19/22 9:09:00 CDT, kg, Weight Start Date: 10/19/22 Stop Date: 11/02/22 Status: Ordered ergocalciferol 1.25 mg (50,000 intl units) oral capsule 50,000 IntUnit = 1 cap, By mouth, QW (once a week), # 12 cap, Refill(s) 0, Pharmacy: [facility] #[id number], [id number], 1 cap By mouth QW (once a week), 75.18, 10/05/22 12:13:00 CDT, kg, Weight Start Date: 10/05/22 Status: Ordered estradiol 0.1 mg/g vaginal cream 1 = g, VAG, at bedtime, Use 2-3 times a week prn, # 42.5 g, Refill(s) 7, Route to Pharmacy Electronically, Pharmacy: [facility] #[id number], [id number], 1 g VAG at bedtime,Instr:Use 2-3 times a week prn, 74.55, 06/19/22... Start Date: 06/21/28 Status: Ordered gabapentin 300 mg oral capsule 300 mg = 1 cap, By mouth, TID, # 21 cap, Refill(s) 0, Pharmacy: [facility], [id number], 1 cap By mouth TID, 73.4, 10/19/22 9:09:00 CDT, kg, Weight Start Date: 10/19/22 Status: Ordered omeprazole 20 mg, By mouth, at bedtime, 0, 12/02/21 8:58:00 CDT, Substitution Permitted Start Date: 12/02/21 Status: Ordered ondansetron 4 mg oral tablet 4 mg = 1 tab, By mouth, Q8H, # 15 tab, Refill(s) 0, Pharmacy: [facility], [id number], 1 tab By mouth Q8H, 73.4, 10/19/22 17:22:00 CDT, kg, Weight Start Date: 10/20/22 Stop Date: 10/20/22 Status: Ordered oxyCODONE 5 mg oral tablet 5 mg, = 1 tab, By mouth, Q4H, PRN as needed for pain, for postop pain control following spine surgery, 42 tab, 0, 0, [facility], 10/19/22 9:09:00 CDT, in, 73.4, Weight, 10/19/22 9:09:00 CDT, kg Start Date: 10/19/22 Status: Ordered Robaxin 500 mg oral tablet 500 mg = 1 tab, By mouth, QID, PRN Muscle Spasms, # 56 tab, Refill(s) 0, Pharmacy: [facility], [id number], 1 tab By mouth QID,x14 Days,PRN:Muscle Spasms, [...] Procedure Date Related Diagnosis Body Site Status ALLOGRAFT FOR SPINE SURGERY ONLY MORSELIZED 10/19/22 Completed ALLOGRAFT FOR SPINE SURGERY ONLY MORSELIZED 10/19/22 Completed ARTHRODESIS CMBN TQ 1NTRSPC EACH ADDITIONAL 10/19/22 Completed ARTHRODESIS CMBN TQ 1NTRSPC EACH ADDITIONAL 10/19/22 Completed ARTHRODESIS COMBINED TQ 1NTRSPC LUMBAR 10/19/22 Completed AUTOGRAFT SPINE SURGERY LOCA L FROM SAME INCISION 10/19/22 Completed AUTOGRAFT SPINE SURGERY LOCA L FROM SAME INCISION 10/19/22 Completed BONE MARROW ASPIRATION BONE GRFG SPI SURG ONLY 10/19/22 Completed INSJ BIOMCHN DEV INTERVERTEB RAL DSC SPC W/ARTHRD 10/19/22 Completed INSJ BIOMCHN DEV INTERVERTEB RAL DSC SPC W/ARTHRD 10/19/22 Completed INSJ BIOMCHN DEV INTERVERTEB RAL DSC SPC W/ARTHRD 10/19/22 Completed WALKER FACETEC/FORAMOT DRG ARTH RD LMBR EA ADDL SGM 10/19/22 Completed WALKER FACETEC/FORAMOT DRG ARTH RD LMBR EA ADDL SGM 10/19/22 Completed WALKER FACETEC/FORAMOT DRG ARTH RD LUMBAR 1 VRT SGM 10/19/22 Completed POSTERIOR NON-SEGMENTAL INSTRUMENTATION 10/19/22 Completed POSTERIOR SEGMENTAL INSTRUME NTATION 3-6 VRT SEG 10/19/22 Completed POSTERIOR SEGMENTAL INSTRUME NTATION 3-6 VRT SEG 10/19/22 Completed STEREOTACTIC COMPUTER ASSIST ED PX SPINAL 10/19/22 Completed C5-7 ACDF 07/11/22 Completed MRI [...] Joint injections 06/12/14 Completed Spinal Injections with [employer] 04/2014 Completed Coccygeal Injection 09/11/13 Compl eted [...] case 9auto-populated from documented surgical case Results Laboratory List Name Date BMP 10/19/22 CBC-d 10/19/22 PT/INR 10/19/22 PTT 10/19/22 TSABS auto 10/19/22 TSType 10/19/22 zCBC Automated Diff 10/19/22 Most recent to oldest [Reference Range]: 1 Type and RH Interp O Positive *Unknown* (10/19/22 9:17 AM) Antibody Screen Interp a Negative (10/19/22 9:17 AM) Anion Gap [2-15 mEq/L] 5 mEq/L (10/19/22 9:17 AM) Glucose, Serum/Plasma [70-100 mg/dL] 104 mg/dL *HI* (10/19/22 9:17 AM) WBC [4.8-10.8 Thous/mm3] 8.9 Thous/mm3 (10/19/22 9:17 AM) Hct [37.0-47.0 %] 44.9 % (10/19/22 9:17 AM) Hgb [12.0-16.0 g/dL] 14.4 g/dL (10/19/22 9:17 AM) RBC [4.20-5.40 Million/mm3] 5.00 Million /mm3 (5/18/23 9:17 AM) MCV [80.0-100.0 fl] 89.8 fl (10/19/22 AM) MCH [26.0-34.0 pg] 28.8 pg (10/19/22 AM) MCHC [31.0-36.5 g/dL] 32.1 g/dL (10/19/22 AM) RDW [10.4-14.4 %] 12.6 % (10/19/22 AM) Platelets [130-440 Thous/mm3] 274 Thous/ mm3 (10/19/22 AM) MPV [9.4-12.4 fl] 9.4 fl (10/19/22 AM) AutoNeutrophil [43.0-78.0 %] 65.6 % (10/19/22 AM) AutoLymphs [20.0-40.0 %] 24.2 % (10/19/22 AM) AutoMono [2.0-10.0 %] 7.3 % (10/19/22 AM) AutoEo [0.0-7.0 %] 2.0 % (10/19/22 AM) Sodium [136-145 mEq/L] 139 mEq/L (10/19/22 AM) Potassium [3.5-5.1 mEq/L] 4.0 mEq/L (10/19/22 AM) Chloride [98-107 mEq/L] 107 mEq/L (10/19/22 AM) AbsNeut [2.0-8.0 Thous/mm3] 5.8 Thous/mm 3 (10/19/22 AM) CO2 [21-32 mEq/L] 27 mEq/L (10/19/22 AM) BUN [7-18 mg/dL] 14 mg/dL (10/19/22 AM) Creatinine [0.55-1.02 mg/dL] 0.76 mg/dL (10/19/22: AM) AbsLymph [1.0-4.0 Thous/mm3] 2.1 Thous/m m3 (10/19/22:17 AM) AbsMono [0.1-1.0 Thous/mm3] 0.6 Thous/mm 3 (10/19/22 9:17 AM) AbsEo [0.0-0.5 Thous/mm3] 0.2 Thous/mm3 (10/19/22 9:17 AM) AbsBaso [0.0-0.2 Thous/mm3] 0.0 Thous/mm 3 (10/19/22 9:17 AM) AutoBaso [0.0-2.5 %] 0.6 % (10/19/22 9:17 AM) Calcium [8.3-10.6 mg/dL] 8.8 mg/dL (10/19/22 9:17 AM) PTT [22-33 sec] 27 sec (10/19/22 9:17 AM) PT [9.0-13.5 sec] 10.4 sec (10/19/22 9:17 AM) INR [0.80-1.30] 0.95 (10/19/22 9:17 AM) eGFR [>=60 mL/min/1.73 m2] 74 mL/min/1.7 3 m2 (10/19/22 9:17 AM) eGFR if [>=60 mL/min/1. 73 m2] 89 mL/min/1.73 m2 (10/19/22 9:17 AM) Imm. Grans % [0-5 %] <5 % (10/19/22 9:17 AM) Imm. Grans # [0.0-0.5 Thous/mm3] <0.5 Th ous/mm3 (10/19/22 9:17 AM) ANC-AbsNeutCount 5.8 Thous/mm3 *NA* (10/19/22 9:17 AM) Radiology Reports * Exam Date Time Procedure Performing Provider Status 10/19/22 9:24 AM XR Chest PA Lateral Left Routine Hernandez RT(R), Shavon; Auth (Verified) Notes: (XR Chest PA Lateral Left Routine) Reason For Exam: Pre op Neuro Surgery REPORT XR Chest PA Lateral Left Routine Reading location: [facility]. REASON FOR EXAM: Pre op Neuro Surgery Diagnosis Codes: COMPARISON: 07/06/2022 FINDINGS: Two views of the chest demonstrates normal cardiac silhouette. The mediastinal configuration appears normal. The lungs are clear. There are no pleural effusions. There is no pneumothorax. IMPRESSION: No acute cardiopulmonary abnormality. Electronically signed by: Dr Koki Bell 10/19/2022 9:33 AM Koki Bell MD Signed 10/19/22 09:33:25 (Electronic Signature) Operations Support Specialist CEW Technologist TP Vital Signs Most recent to oldest [Reference Range]: 1 2 3 Blood Pressure 125/60 (10/24/22 11:30 AM) Blood Pressure 125/48mmHg (10/24/22 7:16 AM) 112/72mmHg (10/24/22 4:22 AM) Height (inches) (Clinical) 66 in (10/23/22 5:00 AM) 66 in (10/19/22 4:57 PM) 66 in (10/19/22 9:09 AM) Weight (kg) (Clinical) 80.1 kg (10/23/22 5:00 AM) 73.4 kg (10/19/22 4:57 PM) 73.4 kg (10/19/22 9:09 AM) BMI (Clinical) 28.4 kg/m2 (10/23/22 5:00 AM) 26.1 kg/m2 (10/19/22 4:57 PM) 26.1 kg/m2 (10/19/22 9:09 AM) Scale Type Bed (10/23/22 5:00 AM) Social History Social History Type Response [...] Safety Implantable Status Assigning Authority Unknown Unknown [id number] Unknown 04/04/27 Unknown Unknown Active Unkn own Unknown [id number] Unknown Unknown 03/03/24 Unknown Unknown Active Unknown Unknown [id number] Unknown Unknown 08/07/24 Unknown Unknown Active Unknown Unknown [id number] Unknown Unknown 09/12/24 Unknown Unknown Active Unknown Procedure Provider Procedure Date Device Type Site Unknown Unknown 10/19/22 Unknown Spine - Lumbar Device Identifier Serial Number Lot or Batch Number Manufacturing Date Expiration Date Distinct Identification Code MRI Safety Implantable Status Assigning Authority Unknown Unknown [id number] Unknown 02/02/24 Unknown Unknown Active Unknown Unknown [id number] Unknown Unknown 03/08/24 Unknown Unknown Active Unknown Unknown Unknown [id number] Unknown 04/04/27 Unknown Unknown Active Unkn own Unknown Unknown [id number] Unknown 06/03/25 Unknown Unknown Active Unknown Unknown Unknown [id number] Unknown 04/04/27 Unknown Unknown Active Unkn own Unknown [id number] Unknown Unknown 09/12/24 Unknown Unknown Active [...] Code MRI Safety Implantable Status Assigning Authority [id number] [id number] Unknown Unknown 03/17/24 Unknown Unknown Active GS1 [id number] Unknown Unknown 03/17/24 Unknown Unknown Active GS1 Unknown Unknown [id number] Unknown 03/09/27 Unknown Unknown Active Unknown Unknown Unknown [id number] Unknown 12/15/26 Unknown Unknown Active Unknown Unknown Unknown Unknown Unknown Unknown Unknown Unknown Active Unk nown Unknown Unknown Unknown Unknown Unknown Unknown Unknown Active Unk nown Hospital Discharge Instructions Patient Education 10/24/2022 11:12:12 How to Use a Back Brace How to Use a Back Brace A back brace is a form-fitting device that wraps around your torso to support your lower back, abdomen, and hips. A back brace can: ??? Relieve back pain or correct a medical condition related to the back, such as abnormal curvature of the spine (scoliosis). It can also maintain or correct the shape of the spine. ??? Prevent a spinal problem from getting worse. ??? Take pressure off the layers of tissue (disks) between the bones of the spine (vertebrae). ??? Keep your back and spine in place while you heal from an injury or recover from surgery. Back braces can be either plastic (rigid brace) or soft elastic (dynamic brace). ??? A rigid brace usually covers both the front and back of the entire upper body. ??? A soft dynamic brace may cover only the lower back and abdomen and may fasten with self-adhesive elastic straps. Your health care provider will recommend the proper brace for your needs and medical condition. What are the risks? Further back problems. Be sure to wear the brace exactly as instructed by your health care provider to help avoid this. ??? Trouble sleeping. Wearing a back brace may be uncomfortable. ??? Difficulty performing some other activities. ??? Skin sores. If the back brace is not worn as instructed, it may cause rubbing and pressure on your skin, which can develop sores. How to use a back brace Different types of braces will have different instructions for use. Follow instructions from your health care provider about: ??? How to put on the brace. ??? When and how often to wear the brace. In some cases, braces may need to be worn for a long time. For example, a brace may need to be worn for 16???23 hours a day when used for scoliosis. ??? How to take off the brace. ??? Any safety tips you should follow when wearing the brace. These may include the following: ??? Move carefully while wearing the brace. The brace restricts your movement and could lead to additional injuries. ??? Use a cane or walker for support if you feel unsteady. ??? Sit in high, firm chairs. It may be difficult to stand up from low, soft chairs. ??? Check the skin around the brace every day. Tell your health care provider about any concerns. How to care for a back brace ??? Do not let the back brace get wet. Typically, you will take the brace off for bathing and then put it back on afterward. ??? If you have a rigid brace, be sure to store it in a safe place when you are not wearing it. This will help to prevent damage. ??? Clean or wash the back brace with mild soap and water as told by your health care provider. Contact a health care provider if: ??? Your brace gets damaged. ??? You have pain or discomfort when wearing the brace. ??? Your back pain is getting worse or is not improving over time. ??? You notice redness or skin breakdown from wearing the brace. Summary ??? You may need to wear a back brace to relieve back pain or to correct a medical condition related to the back, such as abnormal curvature of the spine (scoliosis). ??? Follow instructions as told by your health care provider about how to use the brace and how to take care of it. ??? A back brace may not help if you do not wear it as directed by your health care provider. Wear the brace exactly as instructed to prevent further back problems. ??? Move carefully while wearing the brace. ??? Contact a health care provider if you have pain or discomfort when wearing the back brace or ifyour back pain is getting worse or is not improving over time. This information is not intended to replace advice given to you by your health care provider. Make sure you discuss any questions you have with your health care provider. Document Revised: 08/25/2020 Document Reviewed: 08/25/2020 [employer] Patient Education ?? 2021 [email or web address] 10/24/2022 11:12:12 How to Prevent Constipation After Surgery How to Prevent Constipation After Surgery Constipation is a common problem after surgery. Many things can make constipation more likely aftera surgery, including: ??? Certain medicines, especially numbing medicines (anesthetics) and very strong pain medicines called opioids. ??? Feeling stressed because of the surgery. ??? Eating different foods than normal. ??? Being less active. Symptoms of constipation include: ??? Having fewer than three bowel movements a week. ??? Straining to have a bowel movement. ??? Having hard, dry, or uggvax-ygww-fmbjby stools (feces). ??? Discomfort in the lower abdomen, such as cramps or bloating. ??? Not feeling relief after having a bowel movement. ??? Nausea and vomiting. You can take steps to help prevent constipation after surgery. Follow these instructions at home: Eating and drinking ??? Eat foods that have a lot of fiber in them, such as beans, bran, whole grains, and fresh fruitsand vegetables. ??? Limit foods that are high in fat and processed sugars, such as fried or sweet foods. These include english fries, hamburgers, cookies, and candy. ??? Take a fiber supplement as told by your health care provider. If you are not taking a fiber supplement and you think you are not getting enough fiber from foods, talk to your health care providerabout adding a fiber supplement to your diet. ??? Drink enough fluid to keep your urine pale yellow. ??? Drink clear fluids, especially water. Avoid drinking alcohol, caffeine, and soda. These can make constipation worse. Activity ??? After surgery, return to your normal activities slowly, or when your health care provider says it is okay. ??? Start walking as soon as you can. Try to go a little farther each day. ??? Once your health care provider approves, do some sort of regular exercise. This helps prevent constipation. Bowel movements ??? Go to the restroom when you have the urge to go. Do not hold it in. ??? Try drinking something hot to get a bowel movement started. ??? Keep track of how often you use the restroom. Medicines ??? Take iznd-rvb-mpwjirz and prescription medicines only as told by your health care provider. ??? Talk to your health care provider about medicines that may help prevent constipation, particularly if you have a history of constipation. Your health care provider may suggest a stool softener, laxative, or fiber supplement. ??? Do not take any medicines without talking to your health care provider first. Contact a health care provider if: ??? You used stool softeners or laxatives and still have not had a bowel movement within 24???48 hours after using them. ??? You have not had a bowel movement in 3 days. ??? You have a fever. Get help right away if you have: ??? Constipation that lasts for more than 4 days or if your symptoms get worse. ??? Bright red blood in your stool. ??? Pain in the abdomen or rectum. ??? Very bad cramping. ??? Thin, pencil-like stools. ??? Unexplained weight loss. Summary ??? Constipation is a common problem after surgery. Many things can make constipation more likely after a surgery, including certain medicines, eating different foods than normal, and being less active. ??? Symptoms of constipation include having fewer than three bowel movements a week, straining to have a bowel movement, and cramps or bloating in the lower abdomen. ??? To help prevent constipation, you should eat foods that are high in fiber, drink plenty of fluids, and get regular physical activity. ??? Your health care provider may suggest medicines, such as stool softeners or laxatives, to help prevent constipation. This information is not intended to replace advice given to you by your health care provider. Make sure you discuss any questions you have with your health care provider. Document Revised: 04/07/2020 Document Reviewed: 04/07/2020 [employer] Patient Education ?? 2021 [email or web address] 10/24/2022 11:12:12 Pain Medicine Instructions, Cktb-nt-Mmcv Pain Medicine Instructions You may need pain medicine after an injury or illness. Two common types of pain medicine are: ??? Non-opioid pain medicine. This includes NSAIDs. ??? Opioid pain medicine. These may be called opioids. Pain medicine may not make all of your pain go away. It should make you comfortable enough to move,breathe, and do normal activities. How can pain medicines affect me? Pain medicines can cause side effects such as: ??? Vomiting or feeling like you may vomit. ??? Belly pain. Opioids can cause other side effects, such as: ??? Trouble pooping (constipation). ??? Feeling very sleepy. ??? Confusion. ??? Trouble breathing. ??? Addiction to opioids. This means that you will take the medicine even though it hurts your health. Taking opioids for longer than 3 days raises your risk of these side effects. Taking opioids for a long time can affect how well you can do daily tasks. It also puts you at riskfor: ??? Car crashes. ??? Depression. ??? Suicide. ??? Heart attack. If you do not take pain medicines correctly, you may be at risk for: ??? Liver problems. ??? Kidney problems. ??? Taking too much of the medicine (overdose). This can lead to . What actions can I take to lower my risk of problems? Know your treatment plan Talk about your treatment plan with your doctor. Both you and your doctor should agree on how you should be treated. ??? Talk about the goals of your treatment, including: ??? How much pain you might expect to have. ??? How you will manage the pain. ??? Ask your doctor if you can see other doctors who can treat your pain without using medicine. This can include physical therapy and counseling. ??? Talk about the risks and benefits of taking these medicines for your condition. ??? Tell your doctor about the amount of medicines you take and about any use of drugs or alcohol. ??? Get your pain medicine prescriptions from only one doctor. ??? Keep all follow-up visits. Take your medicine as told ??? Take pain medicine exactly as told by your doctor. Take it only when you need it. ??? If your pain is not too bad, you may take less medicine if your doctor allows. ??? If you have no pain, do not take the medicine unless your doctor tells you to take it. ??? If your pain is very bad, do not take more medicine than your doctor tells you to take. Call your doctor to know what to do. ??? If your pain medicine has acetaminophen in it, do not take any other acetaminophen while you are taking this medicine. Too much can damage the liver. ??? Write down the times when you take your pain medicine. Look at the times before you take your next dose. ??? Take other ymgf-sqr-linydgf or prescription medicines only as told by your doctor. Avoid certain activities While you are taking prescription pain medicine, and for 8 hours after your last dose: ??? Do not drive. ??? Do not use machinery. ??? Do not use power tools. ??? Do not sign legal documents. ??? Do not drink alcohol. ??? Do not take sleeping pills. ??? Do not take care of children by yourself. ??? Do not do any activities that involve climbing or being in high places. ??? Do not go to a evans, river, ocean, spa, or swimming pool unless an adult is nearby who can monitor and help you. Keep pets and people safe ??? Store your medicine as told by your doctor. Keep it where children and pets cannot reach it. ??? Do not share your pain medicine with anyone. ??? Do not save unused pills. If you have unused pills, you can: ??? Bring them to a take-back program. ??? Bring them to a pharmacy that takes back unused pills. ??? Throw them in the trash. Check the medicine label or package insert to see if it is safe to throw it out. If it is safe, take the medicine out of the container. Mix it with something that makes it unusable, such as pet waste. Then put the medicine in the trash. ??? Flush them down the toilet only if this is safe to do. To find out: ??? Check the label or package insert of your medicine. ??? Read information given by the Food and Drug Administration website: fda.gov Treat or prevent constipation You may need to take these actions to prevent or treat constipation: ??? Drink enough fluid to keep your pee (urine) pale yellow. ??? Take alhr-yxb-nxgywxa or prescription medicines. ??? Eat foods that are high in fiber. These include beans, whole grains, and fresh fruits and vegetables. ??? Limit foods that are high in fat and sugar. These include fried or sweet foods. Contact a doctor if: ??? Your medicine is not helping with your pain. ??? You have a rash. ??? You feel sick to your stomach. ??? You throw up. ??? You feel depressed. Get help right away if: ??? You have trouble breathing. This means: ??? Breathing that is slower than normal. ??? Breathing that is more shallow than normal. ??? You are confused. ??? You are sleeping a lot, or you have trouble staying awake. ??? Your skin or lips turn pale or bluish in color. ??? You tongue swells. ??? You have thoughts of harming yourself or harming others. These symptoms may be an emergency. Get help right away. Call your local emergency services (363 [place] ??? Do not wait to see if the symptoms will go away. ??? Do not drive yourself to the hospital. Get help right away if you feel like you may hurt yourself or others, or have thoughts about takingyour own life. Go to your nearest emergency room or: ??? Call your local emergency services (171 in the [place] ??? Call the National Suicide Prevention Lifeline at or 058 in the [place] This is open24 hours a day. ??? Text the Crisis Text Line at 918499. Summary ??? Pain medicine can help lower your pain. It may also cause side effects. ??? Take your pain medicine exactly as told by your doctor. ??? Talk with your doctor about other ways to manage your pain. ??? Ask what activities you should avoid while taking pain medicine. This information is not intended to replace advice given to you by your health care provider. Make sure you discuss any questions you have with your health care provider. Document Revised: 12/14/2021 Document Reviewed: 09/28/2021 [employer] Patient Education ?? 2021 [employer] 10/24/2022 11:12:12 Fall Prevention in the Home, Adult Fall Prevention in the Home, Adult Falls can cause injuries and affect people of all ages. There are many simple things that you can do to make your home safe and to help prevent falls. Ask for help when making these changes, if needed. What actions can I take to prevent falls? General instructions ??? Use good lighting in all rooms. Replace any light bulbs that burn out, turn on lights if it is dark, and use night-lights. ??? Place frequently used items in vlkh-iq-keyxf places. Lower the shelves around your home if necessary. ??? Set up furniture so that there are clear paths around it. Avoid moving your furniture around. ??? Remove throw rugs and other tripping hazards from the floor. ??? Avoid walking on wet floors. ??? Fix any uneven floor surfaces. ??? Add color or contrast paint or tape to grab bars and handrails in your home. Place contrasting color strips on the first and last steps of staircases. ??? When you use a stepladder, make sure that it is completely opened and that the sides and supports are firmly locked. Have someone hold the ladder while you are using it. Do not climb a closed stepladder. ??? Know where your pets are when moving through your home. What can I do in the bathroom? Keep the floor dry. Immediately clean up any water that is on the floor. ??? Remove soap buildup in the tub or shower regularly. ??? Use nonskid mats or decals on the floor of the tub or shower. ??? Attach bath mats securely with double-sided, nonslip rug tape. ??? If you need to sit down while you are in the shower, use a plastic, nonslip stool. ??? Install grab bars by the toilet and in the tub and shower. Do not use towel bars as grab bars. What can I do in the bedroom? Make sure that a bedside light is easy to reach. ??? Do not use oversized bedding that reaches the floor. ??? Have a firm chair that has side arms to use for getting dressed. What can I do in the kitchen? Clean up any spills right away. ??? If you need to reach for something above you, use a sturdy step stool that has a grab bar. ??? Keep electrical cables out of the way. ??? Do not use floor egyptian or wax that makes floors slippery. If you must use wax, make sure that it is non-skid floor wax. What can I do with my stairs? Do not leave any items on the stairs. ??? Make sure that you have a light switch at the top and the bottom of the stairs. Have them installed if you do not have them. ??? Make sure that there are handrails on both sides of the stairs. Fix handrails that are broken or loose. Make sure that handrails are as long as the staircases. ??? Install non-slip stair treads on all stairs in your home. ??? Avoid having throw rugs at the top or bottom of stairs, or secure the rugs with carpet tape to prevent them from moving. ??? Choose a carpet design that does not hide the edge of steps on the stairs. ??? Check any carpeting to make sure that it is firmly attached to the stairs. Fix any carpet that is loose or worn. What can I do on the outside of my home? Use bright outdoor lighting. ??? Regularly repair the edges of walkways and driveways and fix any cracks. ??? Remove high doorway thresholds. ??? Trim any shrubbery on the main path into your home. ??? Regularly check that handrails are securely fastened and in good repair. Both sides of all steps should have handrails. ??? Install guardrails along the edges of any raised decks or porches. ??? Clear walkways of debris and clutter, including tools and rocks. ??? Have leaves, snow, and ice cleared regularly. ??? Use sand or salt on walkways during winter months. ??? In the garage, clean up any spills right away, including grease or oil spills. What other actions can I take? Wear closed-toe shoes that fit well and support your feet. Wear shoes that have rubber soles orlow heels. ??? Use mobility aids as needed, such as canes, walkers, scooters, and crutches. ??? Review your medicines with your health care provider. Some medicines can cause dizziness or changes in blood pressure, which increase your risk of falling. Talk with your health care provider about other ways that you can decrease your risk of falls. Thismay include working with a physical therapist or software trainer to improve your strength, balance, and endurance. Where to find more information ??? Centers for Disease Control and Prevention, [place]AD[place]: www.cdc.gov ??? National [place] on A[place]: www.jessie.nih.gov Contact a health care provider if: ??? You are afraid of falling at home. ??? You feel weak, drowsy, or dizzy at home. ??? You fall at home. Summary ??? There are many simple things that you can do to make your home safe and to help prevent falls. ??? Ways to make your home safe include removing tripping hazards and installing grab bars in the bathroom. ??? Ask for help when making these changes in your home. This information is not intended to replace advice given to you by your health care provider. Make sure you discuss any questions you have with your health care provider. Document Revised: 12/22/2020 Document Reviewed: 12/22/2020 [employer] Patient Education ?? 2021 [email or web address] 10/24/2022 11:12:12 Spinal Fusion, Adult Spinal Fusion, Adult Spinal fusion is a procedure to join two or more bones in the spine (vertebrae). This procedure stops the vertebrae from moving and rubbing against each other. The goal of this procedure is to relieve pain and prevent deformity and weakening of the spine. During a spinal fusion procedure, bone material (graft) is put in between the affected vertebrae tohelp them fuse. The bone graft may be taken from another part of your body, from a donor, or from artificial bone material. Hardware such as rods, screws, metal plates, or cages can be inserted to stabilize the vertebrae while they heal. This procedure may be used to treat many conditions, including: ??? Spinal injury. ??? Herniated disk. ??? Abnormal curvatures of the spine, such as scoliosis or kyphosis. ??? Infections or tumors in the spine. ??? Narrowing of the spine (spinal stenosis). ??? A vertebra slipping out of place (spondylolisthesis). Tell a health care provider about: ??? Any allergies you have. ??? All medicines you are taking, including vitamins, herbs, eye drops, creams, and nmye-noy-paxhrid medicines. ??? Any problems you or family members have had with anesthetic medicines. ??? Any blood disorders you have. ??? Any surgeries you have had. ??? Any medical conditions you have. ??? Whether you are or may be . What are the risks? Generally, this is a safe procedure. However, problems may occur, including: ??? Infection. ??? Bleeding. ??? Allergic reactions to medicines or dyes. ??? Damage to nearby structures or organs, such as nerves near the spine. ??? Leaking of spinal fluid. ??? Blood clots. ??? Trouble controlling urination or bowel movements. ??? The vertebrae not fusing together completely. What happens before the procedure? Staying hydrated Follow instructions from your health care provider about hydration, which may include: ??? Up to 2 hours before the procedure ??? you may continue to drink clear liquids, such as water, clear fruit juice, black coffee, and plain tea. Eating and drinking restrictions Follow instructions from your health care provider about eating and drinking, which may include: ??? 8 hours before the procedure ??? stop eating heavy meals or foods, such as meat, fried foods, or fatty foods. ??? 6 hours before the procedure ??? stop eating light meals or foods, such as toast or cereal. ??? 6 hours before the procedure ??? stop drinking milk or drinks that contain milk. ??? 2 hours before the procedure ??? stop drinking clear liquids. Medicines Ask your health care provider about: ??? Changing or stopping your regular medicines. This is especially important if you are taking diabetes medicines or blood thinners. ??? Taking medicines such as aspirin and ibuprofen. These medicines can thin your blood. Do not take these medicines unless your health care provider tells you to take them. ??? Taking ddtp-kkt-swwvqts medicines, vitamins, herbs, and supplements. Tests ??? You will have blood and urine samples taken. ??? You may have imaging tests, such as X-ray, CT scan, or MRI. Surgery safety Ask your health care provider: ??? How your surgery site will be marked. ??? What steps will be taken to help prevent infection. These may include: ??? Removing hair at the surgery site. ??? Washing skin with a germ-killing soap. ??? Taking antibiotic medicine. General instructions ??? Do not use any products that contain nicotine or tobacco for at least 4 weeks before the procedure. These products include cigarettes, e-cigarettes, and chewing tobacco. If you need help quitting, ask your health care provider. ??? Plan to have a responsible adult take you home from the hospital or clinic. ??? Plan to have a responsible adult care for you for the time you are told after you leave the hospital or clinic. This is important. What happens during the procedure? An IV will be inserted into one of your veins. ??? You may be given a medicine to help you relax (sedative). ??? You will be given a medicine to make you fall asleep (general anesthetic). ??? If bone from another part of your body is being used to fill the space between your vertebrae: ??? An incision will be made over the site of the bone graft. Often, the bone is taken from the hip(pelvic) bone. ??? A small part of the bone will be removed. ??? An incision will be made over the vertebrae that will be fused. This incision may be on your back, abdomen, or side. ??? The muscles will be moved aside so the surgeon can see the vertebrae. ??? If you are having this procedure to treat a herniated disk, part of the disk will be removed. ??? The space between the vertebrae will be filled with bone from another part of your body, bone from a bone donor, or artificial bone material. ??? Screws and rods or metal plates may be put in to stabilize the vertebrae while they fuse. ??? The muscles will be moved back into place. ??? A small tube (drain) may be placed near one of the incisions to drain extra fluid from the siteof surgery. ??? A thin, flexible tube (chest tube) may be inserted into the space between your lung and chest wall to drain extra fluid that collects outside of the lung. ??? Your incisions will be closed. ??? A bandage or dressing may be used to cover your incisions. The procedure may vary among health care providers and hospitals. What happens after the procedure? Your blood pressure, heart rate, breathing rate, and blood oxygen level will be monitored untilyou leave the hospital or clinic. ??? You will be given medicine as needed for pain. ??? You will continue to receive fluids and medicines through an IV. ??? You may be given a brace to wear while you heal. ??? You may have to wear compression stockings. These stockings help to prevent blood clots and reduce swelling in your legs. ??? While in bed, you will be assisted in changing positions frequently by turning your whole body without twisting your back (log rolling technique). ??? You will be taught how to move correctly and how to stand and walk. ??? Do not drive until your health care provider approves. Summary ??? Spinal fusion is a procedure to join two or more bones in the spine. This procedure stops the vertebrae from moving and rubbing against each other. ??? Before the procedure, follow instructions from your health care provider about what to eat and drink. You may also need to stop or change your regular medicines. ??? While in bed after surgery, you will be assisted in changing positions frequently by turning your whole body without twisting your back (log rolling technique). You will also be taught how to move correctly and how to stand and walk. This information is not intended to replace advice given to you by your health care provider. Make sure you discuss any questions you have with your health care provider. Document Revised: 09/08/2020 Document Reviewed: 09/08/2020 [employer] Patient Education ?? 2021 [employer] 10/24/2022 11:12:12 Negative Pressure Wound Therapy Home Guide Negative Pressure Wound Therapy Home Guide Negative pressure wound therapy (NPWT) uses a sponge or foam-like material (dressing) placed on or inside the wound. The wound is then covered and sealed with a cover dressing that sticks to your skin (is adhesive) to keep air out. A tube is attached to the cover dressing, and this tube connects toa small pump. The pump removes drainage from the wound. NPWT helps to increase blood flow to the wound and heal it from the inside. NPWT also helps pull the edges of the wound together and removes fluids and germs from the wound. NPWT may also be called wound vac. What are the risks? NPWT is usually safe to use. However, problems can occur, including: ??? Skin irritation from the dressing adhesive. ??? Bleeding. ??? Infection. Signs of infection include: ??? More redness, swelling, or pain. ??? More fluid or blood. ??? Warmth or hardness around the wound. ??? Pus or a bad smell. ??? Red streaks leading from the wound. ??? Dehydration. Wounds with large amounts of drainage can cause excessive body fluid loss. ??? Pain. Supplies needed: ??? Wound cleanser or salt-water solution (saline). ??? Skin protectant. This may be a wipe, film, or spray. ??? Clean or germ-free (sterile) scissors. ??? New sponge or foam. ??? Cover dressing. ??? Gauze pad. ??? Tape. ??? Also have available: ??? Soap and water, or hand first aid trainer. ??? Disposable gloves. ??? Eye protection. ??? A disposable garbage bag. ??? Protective clothing. How to change your dressing Change the dressing as scheduled, if the dressing loses suction, or the pump is off for 2 hours or more. Prepare to change your dressing 1. Take pain medicine 30 minutes before changing the dressing if told by your health care provider. 2. Wash your hands with soap and water for at least 20 seconds before you change the dressing. If soap and water are not available, use hand first aid trainer 3. Dry your hands with a clean towel. 4. Set up a clean station for wound care and set a plastic bag on or near your work surface for trash. 5. Open the dressing package so that the sponge dressing remains on the inside of the package. 6. Wear gloves, protective clothing, and eye protection. Remove the old dressing 1. Turn off the pump and disconnect the tubing from the dressing. 2. Carefully remove the adhesive cover dressing in the direction of your hair growth. 3. Remove the sponge dressing that is inside the wound. If the sponge sticks, use a wound cleanser or saline solution to wet the sponge and help it come off more easily. 4. Throw the old sponge and cover dressing supplies into the garbage bag. 5. Check the wound for signs of infection, including a bad smell, drainage (bleeding or pus), or new color changes (black, waddell, yellow, or white) in the wound. 6. Remove your gloves by grabbing the cuff and turning the glove inside out. Place the gloves in the trash immediately. 7. Wash your hands with soap and water for at least 20 seconds. If soap and water are not available, use hand first aid trainer. 8. Dry your hands with a clean towel. Clean your wound Wear gloves, protective clothing, and eye protection. Follow your health care provider's instructions on how to clean your wound. You may be told to: 1. Clean the wound using a saline solution or a wound cleanser and a clean gauze pad. 2. Pat the wound dry with a gauze pad. Do not rub the wound. 3. Throw the gauze pad into the garbage bag. 4. Remove your gloves by grabbing the cuff and turning the glove inside out. Place the gloves in the trash immediately. 5. Wash your hands with soap and water for at least 20 seconds. If soap and water are not available, use hand first aid trainer 6. Dry your hands with a clean towel. Apply the new dressing 1. Wear gloves, protective clothing, and eye protection. 2. If told by your health care provider, apply a skin protectant to any skin that will be exposed to adhesive. Let the skin protectant dry. 3. Cut a piece of new sponge dressing and put it on or in the wound. 4. Using clean scissors, cut a nickel-sized hole in the new cover dressing. 5. Apply the cover dressing. 6. Attach the suction tube over the hole in the cover dressing. 7. Take off your gloves. Put them in the plastic bag with the old dressing. Tie the bag shut and throw it away. 8. Wash your hands with soap and water for at least 20 seconds. If soap and water are not available, use hand first aid trainer. 9. Dry your hands with a clean towel. 10. Turn the pump back on. The sponge dressing should collapse. Do not change the settings on the machine without talking to a health care provider. 11. Replace the container in the pump that collects fluid if it is full. Replace the container per the wet machine cutter's instructions or at least once a week, even if it is not full. Follow your health care provider'sinstructions on how often you need to change and apply the new NPWT dressing. General tips and recommendations If the alarm sounds: ??? Stay calm and prepare to troubleshoot. ??? Do not turn off the pump or do anything with the dressing. ??? The alarm may go off for many reasons, including: ??? The battery is low. Change the battery or plug the device into electrical power. ??? The dressing has a leak. Find the leak and put tape over the leak. ??? The fluid collection container is full. Change the fluid container. ??? Call your health care provider right away if you cannot fix the problem. ??? Explain to your health care provider what is happening. Follow his or her instructions. General instructions ??? Change the dressing as scheduled, if the dressing loses suction, or the pump is off for 2 hoursor more. ??? Do not turn off the pump unless told to do so by your health care provider. ??? Do not turn off the pump for more than 2 hours. If the pump is off or you lose suction to the dressing for more than 2 hours, the dressing will need to be changed. ??? Check the machine frequently to make sure that therapy is on and that all clamps are open. ??? Do not use mcsc-eis-souyjha medicated or antiseptic creams, sprays, liquids, or dressings unless told by your health care provider. ??? Do not take baths, swim, or use a hot tub until your health care provider approves. You may only be allowed to take sponge baths. Ask your health care provider if you may take showers. If your health care provider says it is okay to shower: ??? Do not take the pump into the shower. ??? Make sure the wound dressing is protected and sealed. The wound dressing must stay dry. Contact a health care provider if: ??? You have new pain. ??? You develop irritation, a rash, or itching around the wound or dressing. ??? You see new color changes (black, waddell, yellow, or white) in the wound. ??? The dressing changes are painful or cause bleeding. ??? The pump has been off for more than 2 hours, and you do not know how to change the dressing. ??? The pump alarm goes off, and you do not know what to do. Get help right away if: ??? You have a lot of bleeding. ??? The wound breaks open. ??? You have severe pain. ??? You have signs of infection, such as: ??? More redness, swelling, or pain. ??? More fluid or blood. ??? Warmth or hardness. ??? Pus or a bad smell. ??? Red streaks leading from the wound. ??? A fever. ??? You see a sudden change in the color or texture of the drainage. ??? You have signs of dehydration, such as: ??? Little or no tears, urine, or sweat. ??? Muscle cramps. ??? Very dry mouth. ??? Headache. ??? Dizziness or confusion. Summary ??? NPWT uses a sponge or dressing placed on or inside the wound. ??? NPWT helps to increase blood flow to the wound and heal it from the inside. ??? Follow your health care provider's instructions on how to clean your wound and how to change the dressing. ??? Contact a health care provider if you have new pain, an irritation, or a rash, or if the alarm goes off and you do not know what to do. ??? Get help right away if you have a lot of bleeding, your wound breaks open, or you have severe pain. Also, get help if you have signs of infection. This information is not intended to replace advice given to you by your health care provider. Make sure you discuss any questions you have with your health care provider. Document Revised: 10/17/2021 Document Reviewed: 10/17/2021 [employer] Patient Education ?? 2021 [email or web address] 10/24/2022 11:12:12 Spinal Fusion, Adult, Care After, Aysd-ix-Acqv Spinal Fusion, Adult, Care After This sheet gives you information about how to care for yourself after your procedure. Your doctor may also give you more instructions. If you have problems or questions, contact your doctor. What can I expect after the procedure? After the procedure, it is common to have: ??? Back pain and stiffness. ??? Pain in the area around your cut from surgery (incision). Follow these instructions at home: Medicines ??? Take ypoq-vyv-ezxquwf and prescription medicines only as told by your doctor. These include anymedicines for pain or medicines to thin your blood (anticoagulants). ??? If you were prescribed an antibiotic medicine, take it as told by your doctor. Do not stop it even if you start to feel better. ??? If told, take steps to prevent problems with pooping (constipation). You may need to: ??? Drink enough fluid to keep your pee (urine) pale yellow. ??? Take medicines. You will be told what medicines to take. ??? Eat foods that are high in fiber. These include beans, whole grains, and fresh fruits and vegetables. ??? Limit foods that are high in fat and sugar. These include fried or sweet foods. ??? Ask your doctor if you should avoid driving or using machines while you are taking your medicine. Bleeding precautions If you are taking blood thinners: ??? Talk with your doctor before taking any medicines that have aspirin or NSAIDs, such as ibuprofen. ??? Take medicines exactly as told. Take them at the same time each day. ??? Avoid doing things that could hurt or bruise you. Take action to prevent falls. ??? Wear an alert bracelet or carry a card that shows you are taking blood thinners. If you have a brace: ??? Wear the brace as told by your doctor. Take it off only as told by your doctor. ??? Check the skin around the brace every day. Tell your doctor if you have any concerns. ??? Loosen the brace if your legs or toes: ??? Tingle. ??? Become numb. ??? Turn cold and blue. ??? Keep the brace clean. ??? If the brace is not waterproof: ??? Do not let it get wet. ??? Cover it with a watertight covering when you take a bath or shower. Managing pain, stiffness, and swelling If told, put ice on the affected area. To do this: ??? If you have a removable brace, take it off as told by your doctor. ??? Put ice in a plastic bag. ??? Place a towel between your skin and the bag. ??? Leave the ice on for 20 minutes, 2???3 times a day. ??? Take off the ice if your skin turns bright red. This is very important. If you cannot feel pain, heat, or cold, you have a greater risk of damage to the area. Incision care ??? Follow instructions from your doctor about how to take care of your incision. Make sure you: ??? Wash your hands with soap and water for at least 20 seconds before and after you change your bandage. If you cannot use soap and water, use hand first aid trainer. ??? Change your bandage. ??? Leave stitches or skin glue in place for at least 2 weeks. ??? Leave tape strips alone unless you are told to take them off. You may trim the edges of the tape strips if they curl up. ??? Keep your incision clean and dry. ??? Do not take baths, swim, or use a hot tub. Ask your doctor about taking showers or sponge baths. ??? Check your incision every day for signs of infection. Check for: ??? More redness, swelling, or pain. ??? Fluid or blood. ??? Warmth. ??? Pus or a bad smell. Activity ??? Rest as told by your doctor. ??? Get up to take short walks every 1 to 2 hours. Ask for help if you feel weak or unsteady. ??? Follow instructions from your doctor about how to move. Use good posture to help your spine heal. ??? Do not lift anything at all, or anything that is heavier than the limit you are told, until your doctor says that it is safe. ??? Do not twist or bend at the waist until your doctor says it is okay. ??? Protect your back. To do this: ??? Do not make pushing and pulling motions. ??? Do not lift anything over your head. ??? Do not sit or lie down in the same position for a long time. ??? Do exercises as told by your doctor. General instructions ??? Do not drive until your doctor says it is okay. ??? Wear compression stockings as told by your doctor. ??? Do not take out your drain tube. Follow instructions from your doctor about how to take care ofit. ??? Do not smoke or use any products that contain nicotine or tobacco. If you need help quitting, ask your doctor. ??? Keep all follow-up visits. Contact a doctor if: ??? Your pain gets worse or does not get better with medicine. ??? Your legs become painful, swollen, red, or warm to the touch. ??? You have any of these signs of infection in your incision: ??? More redness, swelling, or pain. ??? Fluid or blood. ??? Warmth. ??? Pus or a bad smell. ??? You have a fever. ??? You vomit or you feel like you may vomit. ??? You have new or worse weakness or loss of feeling (numbness) in your legs. ??? You cannot control when you poop or pee. Get help right away if: ??? Your pain is very bad. ??? You have a headache that is worse when you are sitting or standing. ??? You have chest pain. ??? You have trouble breathing. These symptoms may be an emergency. Get help right away. Call your local emergency services (911 int [place] ??? Do not wait to see if the symptoms will go away. ??? Do not drive yourself to the hospital. Summary ??? After the procedure, it is common to have pain in your back and pain in your incision. ??? Putting ice on the area and taking pain medicines may help to control the pain. Follow directions from your doctor. ??? Rest and protect your back as much as possible. ??? Do not twist or bend at the waist. ??? Rest, but get up to take short walks every 1???2 hours. This information is not intended to replace advice given to you by your health care provider. Make sure you discuss any questions you have with your health care provider. Document Revised: 09/08/2020 Document Reviewed: 09/08/2020 [employer] Patient Education ?? 2021 [email or web address] Follow Up Care 10/10/2022 14:08:28 With:Ernie Flowers Address: [address] [place] [address] [address] [place] [address]- Business (1) When:11/16/2022 12:30:00 Comments:No lifting pushing or pulling more than 10 lbWear your brace when out of bedNo bending or twistingNo showering while you have your Prevena on. You may sponge [facility] health care may remove the Prevena on 10/31/22May shower after prevena is removedYour home health care nurse needs to send a pictureof the wounds on 11/02/22. If you have healed enough, we will have the home health rn remove the staplesStaple removal on [id number] follow-up on 11-16-22 at 12:30. Please check-in 45 minutes prior for x-rays. Progress note * Ernie Flowers MD: PERFORM, SIGN, VERIFY Event Display: Progress Notes Authored Date: [id number] Patient: MATHEUS PHELPS Age: 76 years Sex: Female : 1945 Associated Diagnoses: None Author: Ernie Flowers MD Acute events overnight. Reports that she has tenderness over the lateral aspect of the left hip. Appears to be over the bursa of the and is tender to palpation She did walk a little bit this morning down the owusu but does continue to have some left hip flexorweakness that is unchanged Continue aggressive mobilization Awaiting placement at rehab facility DVT prophylaxis Patient ready for transfer to rehab Electronically signed by:Ernie Flowers MD 10/23/22 08:35 Note * Maida Duff: PERFORM Event Display: Procedure Records Authored Date: [id number] Pain Information Nurse Intake Pain Information?? Procedure Name Utilization of Prevena wound VAC??to assist with wound closure and healing, less than 50 cm? Consent Pre Procedure Allergy Band on and Verified: Yes (14:00) Indication Wound healing Location Low back Pre-Procedure Exam NAD AAOx3 AFVSS NLB Moving all extremities Procedural Sedation n/a Post-Procedure Exam Unchanged Complications n/a Total Time 15 min Assessment/Plan Other specified health status(Other specified health status: Z78.9) Spondylolisthesis, lumbar region(Spondylolisthesis, lumbar region: M43.16) ?? Prevena exchange today Home health care RN can remove prevena on 10/31/22 Dry dressings to surgical site following removal. Patient may shower once prevena has been removed Medication reconciliation completed on this patient Electronically signed by:Maida Duff 10/24/22 10:28 * Koki Bell MD: PERFORM, TRANSCRIBE, VERIFY, VERIFY Event Display: [employer] Read Authored Date: [id number] Reading location: [facility]. REASON FOR EXAM: Pre op Neuro Surgery Diagnosis Codes: COMPARISON: 07/06/2022 FINDINGS: Two views of the chest demonstrates normal cardiac silhouette. The mediastinal configuration appears normal. The lungs are clear. There are no pleural effusions. There is no pneumothorax. IMPRESSION: No acute cardiopulmonary abnormality. Electronically signed by: Dr Koki Bell 10/19/2022 9:33 AM Koki Bell MD Signed 10/19/22 09:33:25 (Electronic Signature) Operations Support Specialist CEW Technologist TP Surgical operation note * Ernie Flowers MD: VERIFY, PERFORM, SIGN Event Display: Operative Report Authored Date: [id number] Patient: MATHEUS PHELPS Age: 76 years Sex: Female : 1945 Associated Diagnoses: None Author: Ernie Flowers MD Date of Surgery: 10/19/2022 Indication for Surgery This patient presented to clinic with chronic low back pain with lower extremity radiculopathy. ??The patient underwent conservative treatment measures including physical therapy and pain management as well as epidural steroid injections without significant improvement. ??Preoperative imaging demonstrated evidence of disc degeneration with loss of disc height as well as facet degeneration along with neuroforaminal compromise and neural impingement. There was also spondylolisthesis with spinal instability.??Various options were discussed with the patient. ??Risks, benefits, alternatives, complications all discussed with patient present for operative management after informed consent was signed. Preoperative Diagnosis 1. 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 ??Neural foraminal stenosis with neural impingement 4. Spondylolisthesis with spinal instability Postoperative Diagnosis Same Operation 1. Approach through Kambin's triangle with foraminoplasty at L2-3, L3-4, L4-5 2. Minimally invasive arthrodesis, interbody technique through Kambin's triangle (anterior to transverse process), including total discectomy to prepare interspace: vertebral levels spanning L2-3, L3-4, L4-5 3. Insertion of interbody intervertebral device (Spineology Optimesh) for anterior arthrodesis at L2-3, L3-4, L4-5 4. Harvesting of autograft from the same incision on the anterior arthrodesis at L2-3, L3-4, L4-5 5. Utilization of allograft BMP for anterior arthrodesis at L2-3, L3-4, L4-5 6. Utilization of intraoperative fluoroscopy for localization operative level, placement of instrumentation and confirmation of??instrumentation placement 7. Utilization of intraoperative neuro navigation O-arm??for instrumentation placement 8. Bilateral L2, L3, L4, L5 minimally invasive pedicle screw instrumentation (Weavly) 9. Bilateral L2-3, L3-4, L4-5 posterior lateral arthrodesis utilizing autograft and allograft 10. Intraoperative discography L2-3, L3-4, L4-5 11. ??Utilization of intraoperative neuro monitoring for SSEP and EMG 12.?? Utilization??of 266 mg??of Exparel??for??myofascial anesthesia 13. Aspiration of bone marrow from the iliac crest via a separate incision for spinal fusion Surgeon(s) Ernie Flowers MD Insole Channeler JADA Barreto??(assisted and participated in all aspects of the operative procedure) Anesthesia General endotracheal Estimated Blood Loss 20 ml Findings Disc herniation with neural foraminal compromise, neural impingement, loss of disc height Specimen(s) None Complications None Technique Patient was brought to the operating room and a universal timeout was performed.?Sequential compression devices were applied and preoperative antibiotics were provided.?General endotracheal anesthesia induced by the anesthesiologist.?Patient was flipped in the prone position secured to the operative table.?Intraoperative fluoroscopy was brought into play to localize level of interest in the incision was marked.?The entire area was prepped and draped in usual fashion. C-arm fluoroscopy was draped and brought into the field.?? We identified the L2- 3, L3-4, L4-5 levels.?? We marked the lateral entry points with measurement as well as utilizing fluoroscopy. Local anesthetic/Exparel was infiltrated into the proposed incision site. An incision was made approximately 6-8 cm off midline.?? We used a neuromonitoring probe to access the area through Kambin's triangle.?? Once neuro monitoring implied that we were in appropriate position without any response noted, we confirmed with fluoroscopy. Utilizing sequential dilators and reamers, we performed the reaming of the articular process up to the medial pedicular line. This was confirmed under fluoroscopy. A sheath was traversed down across the probe and docked across the posterolateral foramen. Utilizing a punch we opened up the foramen and directly decompressed the neural elements thereby completing the foraminoplasty. Autograft bone fragments that were obtained from this were then collected to be utilized for anterior arthrodesis at a later point in the procedure. We then turned our attention towards the discectomy. Pituitary forceps were utilized to remove the extruded foraminal disc material. A guidepin was placed into the disc.?? We placed dilators and then placed the Spineology portal into the disc.?? Once this was done we then began to use a variety of curettes and rongeurs to initiatediscectomy.?? We then used wire tip brushes for completing the diskectomy and preparing the endplates for arthrodesis.?? Once we were happy with the discectomy, we placed a balloon into the disc space and confirmed with Omnipaque discography that we were happy with the disc prep.?? There was good conformation of the diskography balloon across the disc space with close approximation to the endplates confirming that the diskectomy and endplate preparation was ideal. The disc space was then carefully irrigated. We placed the previously collected autograft from the foraminotomy as well as a portion of allograft BMP into the disc space.?? We then used a Spineology Optimesh implant which was packed with allograft.?? Under continuous fluoroscopy we observed the mesh implant device to expand. There was excellent baptist of the disc height which was confirmed on fluoroscopy.?? We then removed the engineering technologist and the portal.?? This incision was then closed. We next affixed the neuronavigation array and an O-arm spin was performed with confirmation of goodaccuracy.?? We proceeded to place the pedicle screws.?Local anesthetic was infiltrated into the incision site bilaterally. Utilizing a 10 scalpel will be create an incision down to the subcutaneous tissue. Monopolar and bipolar cautery were utilized for hemostasis and dissection. The fascial layer was split. Utilizing spinal neuro navigation, the starting point for each pedicle screw was identified and the cortex breached.?A navigation probe confirmed the appropriate trajectory.?A tap w as then utilized under navigation to access the pedicle.?This was then probed and found good bone cortication.?Appropriate size screws were then placed down to the pedicle under navigation as well.??Fluoroscopy confirmed the screws to be in appropriate position. We then used sequential dilators between the screws to identify the pars and the exposed bone between them. This was confirmed with navigation to be in accurate position. We then used a a high-speed bur and decorticated the facet joints, pars and accessible bone surfaces.?? A Jamshidi needle was utilized to aspirate bone marrow from the iliac crest. This was mixed with the remaining autograft andallograft. The remaining autograft, BMP and allograft was packed in to these areas to complete the posterolateral arthrodesis. Intraoperative pedicle testing demonstrated no abnormal responses. We then irrigated the incision copiously and hemostasis was meticulously obtained.. We then placed appropriate sized rods to the locking towers and these were locked in place with set screws. Torque tightening was performed to ensure good fixation. The MIS pedicle screw towers were then removed. All hardware appeared to be in excellent position under fluoroscopy.?? We then achieved hemostasis and began to close the incisions in layers. 266 mg Exparel was combined with local anesthetic and saline. It was injected across all traversed planes to provide local myofascial anesthesia. Vancomycin powder was sprinkled suprafascially. Interrupted 2-0 Vicryl suture was used to close the subcutaneous layer.?? The skin was then closed with De rmabond/flako/suture. The incision was cleaned and dried and a sterile dressing applied. The patient was flipped in the supine position, extubated by the anesthesiologist without apparent complication, transferred to PACUin stable condition.?All counts were correct at the end of the procedure.?There were no neuromonitoring changes. 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 3.?Neural foraminal stenosis with neural impingement 4. ??Spondylolisthesis with spinal instability [1] Procedures During Visit Procedures: 10-19-22 11:52??Fusion Opti Lumbar Interbody/O-Arm??with Prevena?? L2, L5?? Maida Duff Registered Nurse Practitioner?? Ernie Flowers MD Surgeon - Primary?? Admission History This patient presented to clinic with chronic low back pain with lower extremity radiculopathy.?The patient underwent conservative treatment measures including physical therapy and pain managementas well as epidural steroid injections without significant improvement.?Preoperative imaging demonstrated evidence of disc degeneration with loss of disc height as well as facet degeneration alongwith neuroforaminal compromise and neural impingement. There was also spondylolisthesis with spinalinstability.??Various options were discussed with the patient.?Risks, benefits, alternatives, complications all discussed with patient present for operative management after informed consent was signed. [2] Hospital Course Patient discharged home??yesterday as planned due to transportation??issues. Home??health care has been??arranged??and patient transportation this morning.?? They are going to change??her Prevena??in anticipation??of??discharge before lunch. Patient??has continued to mobilize??with nursing staff??and Physical therapy??and is doing??quite well. ? Vitals & Measurements ??Vital Signs (last 24 hrs)?Last Charted?Minimum?Maximum?Temp?97.5 (OCTOBER 24:16)?97.4 (OCTOBER 23:30)?98.5 (OCTOBER 23:27)?Heart Rate?85 (OCTOBER 24:16)?76 (OCTOBER 23 23:36)?93 (OCTOBER 23:30)?Resp Rate?16 (OCTOBER 24:16)?16 (OCTOBER 23:27)?20 (OCTOBER 23:30)?SBP?125 (OCTOBER 24:16)?104 (OCTOBER 23:30)?162 (OCTOBER 23:55)?DBP?C??48(OCTOBER 24:16)?C??48(OCTOBER 24:16)?88 (MAY 22 15:55)?SpO2?95 (OCTOBER 24 07:16)?94 (OCTOBER 23 15:55)?97 (OCTOBER 24 04:22)?O2?Room a (OCTOBER 24 07:16)?Room a (OCTOBER 23 12:30)?Room a (OCTOBER 23 12:30)?? Physical Exam NAD AAOx3 AFVSS NLB Moving all extremities Discharge Orders Discharge 10/23/22 13:07:00 CDT, Home/Self Care Discharge Follow Up 10/23/22 13:07:00 CDT, Provider/Time: 2 weeks staple/suture removal, 1 month with physician, Readmission Risk F/U 3-5 days Discharge Diet 10/23/22 13:07:00 CDT, Discharge Diet: Regular Discharge Activity 10/23/22 13:07:00 CDT, No lifting more than 10 pounds Medications Home Medications (10) Active acetaminophen 325 mg oral tablet??975 mg, By mouth, QID celecoxib 200 mg oral capsule??200 mg = 1 cap, By mouth, BID Colace 100 mg oral capsule??100 mg = 1 cap, PRN, By mouth, BID ergocalciferol 1.25 mg (50,000 intl units) oral capsule??50,000 IntUnit = 1 cap, By mouth, QW (oncea week) estradiol 0.1 mg/g vaginal cream??1 g, VAG, at bedtime gabapentin 300 mg oral capsule??300 mg = 1 cap, By mouth, TID omeprazole??20 mg, By mouth, at bedtime ondansetron 4 mg oral tablet??4 mg = 1 tab, By mouth, Q8H oxyCODONE 5 mg oral tablet??5 mg = 1 tab, PRN, By mouth, Q4H Robaxin 500 mg oral tablet??500 mg = 1 tab, PRN, By mouth, QID Medication reconciliation completed on this patient Pending Labs PENDING LABS [facility] Facility Discharge CV-19 Screen Nasopharynx, Specimen, Unit Collect, Routine, Print Label, 10/21/22 9:38:00 CDT, [id number], [email or web address]_set_order_encntr Lab Results Labs??(Last two charted values on this encounter) WBC 8.9 ??(OCTOBER 19) ?? Hgb 14.4 ??(OCTOBER 19) ?? Hct 44.9 ??(OCTOBER 19) ?? Platelets 274 ??(OCTOBER 19) ?? Na 139 ??(OCTOBER 19) ?? K 4.0 ??(OCTOBER 19) ?? Cl 107 ??(OCTOBER 19) ?? CO2 27 ??(OCTOBER 19) ?? BUN 14 ??(OCTOBER 19) ?? Cr 0.76 ??(OCTOBER 19) ?? Ca ?8.8 ??(OCTOBER 19) ?? PT ?10.4 ??(OCTOBER 19) ?? INR ?0.95 ??(OCTOBER 19) ?? PTT 27 ??(OCTOBER 19) ?? Glucose,Plasma 104 ??(OCTOBER 19) ?? Diagnostic Results Radiology Results:?? XR Chest PA Lateral Left Routine - 10/19/22 09:33 ( [place], Koki Myers )?? IMPRESSION: No acute cardiopulmonary abnormality. Electronically signed by: Dr Koki Bell ??10/19/2022 9:33 AM Other No qualifying data available. Airway Management Artificial Airway:Oral Artificial Size: Date/Time:10/19/2022 13:50 Artificial Activity:Extubated [1]??Discharge Note; Maida Duff 10/23/2022 13:10 CDT [2]??Discharge Note; Maida Duff 10/23/2022 13:10 CDT Electronically signed by:Maida Duff 10/24/22 09:34 * Maida Duff: PERFORM Event Display: Discharge Summary Authored Date: [id number] Discharge Information Admit date:10/19/2022 Discharge date:10/23/2022 Primary Care Physician:Lois Bran MD Attending Physician:Ernie Flowers MD Admitting Physician:Ernie Flowers MD Discharge Diagnosis Other specified health status Spondylolisthesis, lumbar region ??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 3.?Neural foraminal stenosis with neural impingement 4. ??Spondylolisthesis with spinal instability ?? [1] Procedures During Visit Procedures: 10-19-22 11:52??Fusion Opti Lumbar Interbody/O-Arm??with Prevena?? L2, L5?? Maida Duff Registered Nurse Practitioner?? [place], Ernie Surgeon - Primary?? Admission History This patient presented to clinic with chronic low back pain with lower extremity radiculopathy.?The patient underwent conservative treatment measures including physical therapy and pain managementas well as epidural steroid injections without significant improvement.?Preoperative imaging demonstrated evidence of disc degeneration with loss of disc height as well as facet degeneration alongwith neuroforaminal compromise and neural impingement. There was also spondylolisthesis with spinalinstability.??Various options were discussed with the patient.?Risks, benefits, alternatives, complications all discussed with patient present for operative management after informed consent was signed. [2] Hospital Course No Acute events overnight. ??Reports that she has tenderness over the lateral aspect of the left hip. ??Appears to be over the bursa of the and is tender to palpation ?? She did walk a little bit this morning down the owusu but does continue to have some left hip flexorweakness that is unchanged ?? Continue aggressive mobilization Awaiting placement at rehab facility DVT prophylaxis ?? Patient ready for transfer to rehab?? [3] Vitals & Measurements ??Vital Signs (last 24 hrs)?Last Charted?Minimum?Maximum?Temp?97.4 (OCTOBER 23 12:30)?97.3 (OCTOBER 23 07:32)?98.2 (OCTOBER 22:30)?Heart Rate?93 (OCTOBER 23 12:30)?63 (OCTOBER 22:30)?93 (OCTOBER 23:30)?Resp Rate?20 (OCTOBER 23 12:30)?14 (OCTOBER 23 03:45)?20 (OCTOBER 23 07:32)?SBP?104 (OCTOBER 23 12:30)?104 (OCTOBER 23 12:30)?154 (OCTOBER 23 03:45)?DBP?62 (OCTOBER 23 12:30)?62 (OCTOBER 23 12:30)?81 (OCTOBER 23 03:45)?SpO2?95 (OCTOBER 23 12:30)?93 (OCTOBER 22 19:37)?97 (OCTOBER 23:32)?O2?Room a (OCTOBER 23 12:30)?Room a (OCTOBER 22 15:54)?Room a (OCTOBER 22 15:54)?Weight?80.1 (OCTOBER 23 05:00)?80.1 (OCTOBER 23 05:00)?80.1 (OCTOBER 23 05:00)?? Physical Exam NAD AAOx3 AFVSS NLB Moving all extremities Discharge Orders Discharge 10/23/22 13:07:00 CDT, Home/Self Care Discharge Follow Up 10/23/22 13:07:00 CDT, Provider/Time: 2 weeks staple/suture removal, 1 month with physician, Readmission Risk F/U 3-5 days Discharge Diet 10/23/22 13:07:00 CDT, Discharge Diet: Regular Discharge Activity 10/23/22 13:07:00 CDT, No lifting more than 10 pounds Medications Home Medications (10) Active acetaminophen 325 mg oral tablet??975 mg, By mouth, QID celecoxib 200 mg oral capsule??200 mg = 1 cap, By mouth, BID Colace 100 mg oral capsule??100 mg = 1 cap, PRN, By mouth, BID ergocalciferol 1.25 mg (50,000 intl units) oral capsule??50,000 IntUnit = 1 cap, By mouth, QW (oncea week) estradiol 0.1 mg/g vaginal cream??1 g, VAG, at bedtime gabapentin 300 mg oral capsule??300 mg = 1 cap, By mouth, TID omeprazole??20 mg, By mouth, at bedtime ondansetron 4 mg oral tablet??4 mg = 1 tab, By mouth, Q8H oxyCODONE 5 mg oral tablet??5 mg = 1 tab, PRN, By mouth, Q4H Robaxin 500 mg oral tablet??500 mg = 1 tab, PRN, By mouth, QID Medication reconciliation completed on this patient Pending Labs PENDING LABS [facility] Facility Discharge CV-19 Screen Nasopharynx, Specimen, Unit Collect, Routine, Print Label, 10/21/22 9:38:00 CDT, [id number], pp_[email or web address]_call_set_order_encntr Lab Results Labs??(Last two charted values on this encounter) WBC 8.9 ??(OCTOBER 19) ?? Hgb 14.4 ??(OCTOBER 19) ?? Hct 44.9 ??(OCTOBER 19) ?? Platelets 274 ??(OCTOBER 19) ?? Na 139 ??(OCTOBER 19) ?? K 4.0 ??(OCTOBER 19) ?? Cl 107 ??(OCTOBER 19) ?? CO2 27 ??(OCTOBER 19) ?? BUN 14 ??(OCTOBER 19) ?? Cr 0.76 ??(OCTOBER 19) ?? Ca ?8.8 ??(OCTOBER 19) ?? PT ?10.4 ??(OCTOBER 19) ?? INR ?0.95 ??(OCTOBER 19) ?? PTT 27 ??(OCTOBER 19) ?? Glucose,Plasma 104 ??(OCTOBER 19) ?? Diagnostic Results Radiology Results:?? XR Chest PA Lateral Left Routine - 10/19/22 09:33 ( [place], Koki Myers )?? IMPRESSION: No acute cardiopulmonary abnormality. Electronically signed by: Dr Koki Bell ??10/19/2022 9:33 AM Other No qualifying data available. Airway Management Artificial Airway:Oral Artificial Size: Date/Time:10/19/2022 13:50 Artificial Activity:Extubated [1]??Neurosurgery; [place], Ernie 10/19/2022 14:21 CDT [2]??Neurosurgery; [place], Ernie 10/19/2022 14:21 CDT [3]??Neurosurgery; [place], 10/23/2022 08:34 CDT Electronically signed by:Maida Duff 10/23/22 13:11 XR Chest PA and Lateral * Koki Bell MD: PERFORM, TRANSCRIBE, VERIFY, VERIFY Event Display: Report Authored Date: Cardiology * Tyree Cruz MD R: SIGN, VERIFY Event Display: EKG 12-Lead Authored Date: Patient Care team information Care Team Personnel Name: [place], Lois Cunningham Position: PX Physician - Family Practice Member Role: Primary Care Physician Address: Address: [address] [place] [address]- Care Team Related Persons Name: MAYELA PHELPS JR Address: home [address] [address] [facility] [place] [id number] [facility] Address: mailing [address] [place], [place] [id number] [facility] Name: RADHA MARMOLEJO
--- OUTSIDE RECORDS SUMMARY | 2023-01-05 09:01 | XMS_ITS | Continuity of Care Document ---
Author Name Unknown Organization [facility] Address [address] [place] [address]- Care Team Providers Care Furnace Combination Analyst Name Role Phone Lois Bran MD Primary Care Physician Encounter Mary Financial Number [id number] Date(s): 10/05/22 - 10/07/22 [facility] [address] [place] [address]- [phone] Discharge Disposition: .Discharge to Home (Routine) Attending Physician: Ernie Flowers MD Allergies, Adverse Reactions, Alerts Substance Reaction Severity Status statins 1 Myalgia Moderate Active 1MUSCLE PAIN Assessment and Plan Future Appointments Appointment Date:10/19/2022 02:45:00 PM Scheduled Provider: Location:[facility] Surgery Appointment Type:Surgery Appointment Date:11/16/2022 12:15:00 PM Scheduled Provider: Location:[facility] Procedure Appointment Type:Rad Appointment Date:11/16/2022 12:30:00 PM Scheduled Provider:Ernie Flowers MD Location:[facility] Appointment Type:Post-Op Appointment Date:05/15/2023 09:00:00 AM Scheduled Provider:Lois Bran MD Location:[facility] Appointment Type:Established Patient Future Scheduled Tests Laboratory* [...] Other : late entry 3Location History: [place] 4[facility] [place] [place] 5Location History: [place] 6Location History: [place] Medications acetaminophen 325 mg oral tablet 975 mg, By mouth, QID, # 84 tab, Refill(s) 0, Pharmacy: [facility], [id number], TAB, 975 mg By mouth QID, 73.2, 07/11/22 6:24:00 DISTRIBUTION ESTIMATOR, kg, Weight Start Date: 07/11/22 Status: Ordered ergocalciferol 1.25 mg (50,000 intl units) oral capsule 50,000 IntUnit = 1 cap, By mouth, QW (once a week), # 12 cap, Refill(s) 0, Pharmacy: [facility] #[id number], [id number], 1 cap By mouth QW (once a week), 75.18, 10/05/22 12:13:00 CDT, kg, Weight Start Date: 10/05/22 Status: Ordered estradiol 0.1 mg/g vaginal cream 1 = g, VAG, at bedtime, Use 2-3 times a week prn, # 42.5 g, Refill(s) 7, Route to Pharmacy Electronically, Pharmacy: [facility] #[id number], [id number], 1 g VAG at bedtime,Instr:Use 2-3 times [...] Joint injections 06/12/14 Completed Spinal Injections with Converser 04/2014 Completed Coccygeal Injection 09/11/13 Compl eted [...] Exam Date Time Procedure Performing Provider Status 5/4/23 9:46 AM XR Cervical Spine AP Lateral [place] , Ernie; Auth (Verified) Notes: (XR Cervical Spine AP Lateral) Reason For Exam: s/p ACDF;S/P cervical spinal fusion REPORT XR Cervical Spine AP Lateral PROCEDURE INFORMATION: Exam: XR Cervical Spine Exam date and time: 10/05/2022 9:46 AM Age: 76 years old Clinical indication: Arthrodesis status; Additional info: S/P acdf; S/P cervical spinal fusion. Post op jul 11, 2022; Doing well. TECHNIQUE: Imaging protocol: Radiologic exam of the cervical spine. Views: 2 or 3 views. COMPARISON: CR XR Cervical Spine AP Lateral 08/07/2022 10:13 AM FINDINGS: Bones/joints: The vertebral body stature is intact. Stable anterior degenerative subluxation of C7 on T1. Intact anterior mechanical fusion of C5-C7 with spacers. The facets are intact with degenerative changes. Soft tissues: Unremarkable. Vasculature: Calcified plaque in the carotid bulbs. IMPRESSION: 1. No acute findings. 2. Intact anterior C5-C7 fusion. Electronically signed by: Devonte Thompson MD, [facility], 10/05/2022 18:12 Devonte Thompson MD Signed 10/05/22 18:12:03 (Electronic Signature) Technologist LOLA Social History Social History Type Response Smoking [...] Code MRI Safety Implantable Status Assigning Authority [id number] Unknown Unknown 03/17/24 Unknown Unknown Active GS1 [id number] Unknown Unknown 03/17/24 Unknown Unknown Active GS1 Unknown Unknown [id number] Unknown 03/09/27 Unknown Unknown Active Unknown Unknown Unknown [id number] Unknown 12/15/26 Unknown Unknown Active Unknown Unknown Unknown Unknown Unknown Unknown Unknown Unknown Active Unk nown Unknown Unknown Unknown Unknown Unknown Unknown Unknown Active Unk nown XR Cervical spine AP and Lateral * Devonte Thompson MD: PERFORM, VERIFY, VERIFY Event Display: Report Authored Date: Note * Devonte Thompson MD: PERFORM, VERIFY, VERIFY Event Display: Powerscribe Read Authored Date: PROCEDURE INFORMATION: Exam: XR Cervical Spine Exam date and time: 10/05/2022 9:46 AM Age: 76 years old Clinical indication: Arthrodesis status; Additional info: S/P acdf; S/P cervical spinal fusion. Post op jul 11, 2022; Doing well. TECHNIQUE: Imaging protocol: Radiologic exam of the cervical spine. Views: 2 or 3 views. COMPARISON: CR XR Cervical Spine AP Lateral 08/07/2022 10:13 AM FINDINGS: Bones/joints: The vertebral body stature is intact. Stable anterior degenerative subluxation of C7 on T1. Intact anterior mechanical fusion of C5-C7 with spacers. The facets are intact with degenerative changes. Soft tissues: Unremarkable. Vasculature: Calcified plaque in the carotid bulbs. IMPRESSION: 1. No acute findings. 2. Intact anterior C5-C7 fusion. Electronically signed by: Devonte Thompson MD, [facility], 10/05/2022 18:12 Devonte Thompson MD Signed 10/05/22 18:12:03 (Electronic Signature) Technologist SL Patient Care team information Care Team Personnel Name: Lois Bran MD Position: PX Physician - Family Practice Member Role: Primary Care Physician Address: Address: [address] [place] [address]- Care Team Related Persons Name: MAYELA PHELPS JR Address: home [address] [place], [place] [phone] [facility] Address: mailing [address] [place], [place] [phone] [facility] Name: RADHA MARMOLEJO
--- OUTSIDE RECORDS SUMMARY | 2023-01-05 09:01 | XMS_ITS | Continuity of Care Document ---
Author Name Unknown Organization [facility] Address [address] [place] [address]- Care Team Providers Care Crankshaft Grinder Name Role Phone Lois Bran MD Primary Care Physician [phone] Encounter 11/16/22 - 11/17/22 [facility] [address] [place] [address]- [place] Encounter Diagnosis Encounter for screening for other disorder(Discharge Diagnosis) - 11/16/22 Attending Physician: Ernie Flowers MD Allergies, Adverse Reactions, Alerts Substance Reaction Severity Status cortisone muscles in legs jump, cramps Moderate Active statins 1 Myalgia Moderate Active 1MUSCLE PAIN Assessment and Plan Extracted from: Title:Office Visit - Comprehensive Author:Ernie Churchill MD Date:11/16/22 S/P lumbar fusion(Arthrodesi s status: Z98.1) Ordered: Post[place] Visit [id number] ?? May??presents with??low back pain and left??anterior??thigh numbness along??with right sacroiliac pain??following a fall.?? She had??a L2-5 posterior??fusion about a month??ago??and as soon as she returned home??she sustained??this fall and since then??has been having??these symptoms. ?? She has been compliant??with the brace as well??as bone stimulator.?? She utilizes??a walker??for ambulating. ?? We reviewed x-rays??today that demonstrate??instrumentation to be in appropriate position.?? There appears??to be evidence of??compression of the superior??endplate of L3 when??compared to the intraoperative x-rays as well??as some??anterior??displacement of the L4 vertebral body??compared to the preoperative x-rays. ?? Will have??her started outpatient??physical therapy??at [place] Prescription??for Medrol Dosepak and gabapentin will be sent??to the pharmacy Refer to bone density??clinic for evaluation??and treatment ?? Continue lifting, pulling and pushing restrictions??of 10 lb ?? Follow-up in??2 months with??x-rays prior??to appointment.?? All questions answered??in detail. ? Future Appointments Appointment Date:01/18/2023 08:00:00 AM Scheduled Provider: Location:[facility] Procedure Appointment Type:Rad Appointment Date:01/18/2023 09:30:00 AM Scheduled Provider:Ernie Flowers MD [facility] Appointment Type:Established Patient Appointment Date:05/15/2023 09:00:00 AM Scheduled Provider:Lois Bran MD Location:[facility] Appointment Type:Established Patient Future Scheduled Tests Laboratory* [...] vaccine 05/04/14 Given Prevnar 13 pneumococcal 13-valent 1/31/19 Given Zoster Vaccine Live 5 04/10/17 Recorded Tdap-ADULT/ADOL tetanus/diphth/pertuss,a 6 04/10/17 Recorded Pneumovax 23 pneumococcal 23-valent 05/24/15 Recor ded Pneumovax 23 pneumococcal 23-valent 05/04/14 Given tetanus-diphth toxoids (Td) adult/adol 06/04/11 Gi arlene 1Location History: [facility] 2Early/Late Reason: Other : late entry 3Location History: [place] 4Location History: [place] 5Location [place]: [place] 6Location History: [place] Medications acetaminophen 325 mg oral tablet 975 mg, By mouth, QID, # 84 tab, Refill(s) 0, Pharmacy: [facility], [id number], TAB, 975 mg By mouth QID, 73.4, 10/19/22 9:09:00 CDT, kg, Weight Start Date: 10/19/22 Status: Ordered celecoxib 200 mg oral capsule 200 mg = 1 cap, By mouth, BID, # 14 cap, Refill(s) 0, Pharmacy: [facility], [id number], CAP, 1 cap By mouth BID, 73.4, 10/19/22 9:09:00 CDT, kg, Weight Start Date: 10/19/22 Status: Ordered Colace 100 mg oral capsule 100 mg = 1 cap, By mouth, BID, PRN for constipation, # 28 cap, Refill(s) 0, Pharmacy: [facility], [id number], 1 cap By mouth BID,x14 Days,PRN:for constipation, 73.4, 10/19/22 9:09:00 CDT, kg, Weight Start Date: 10/19/22 Stop Date: 11/02/22 Status: Ordered ergocalciferol 1.25 mg (50,000 intl units) oral capsule 50,000 IntUnit = 1 cap, By mouth, QW (once a week), # 12 cap, Refill(s) 0, [id number], [id number], 1 cap By mouth QW (once a week), 75.18, 10/05/22 12:13:00 CDT, kg, Weight Start Date: 10/05/22 Status: Ordered estradiol 0.1 mg/g vaginal cream 1 = g, VAG, at bedtime, Use 2-3 times a week prn, # 42.5 g, Refill(s) 7, Route to Pharmacy Electronically, Pharmacy: [facility] #[id number], [id number], 1 g VAG at bedtime,Instr:Use 2-3 times a week prn, 74.55, 06/19/22... Start Date: 06/21/28 Status: Ordered gabapentin 300 mg oral capsule 300 mg = 1 cap, By mouth, TID, # 21 cap, Refill(s) 0, Pharmacy: [facility], [id number], 1 cap By mouth TID, 73.4, 10/19/22 9:09:00 CDT, kg, Weight Start Date: 10/19/22 Status: Ordered gabapentin 600 mg oral tablet 600 mg = 1 tab, By mouth, at bedtime, # 30 tab, Refill(s) 0, Pharmacy: [facility] #[id number], 1 tab By mouth at bedtime, 75.45, 11/02/22 10:58:00 CDT, kg, Weight (kg) (Clinical) Start Date: 11/16/22 Status: Ordered Medrol 4 mg oral tablet = 1 pack, By mouth, Daily, as directed on package labeling, X 6 Days, # 21 tab, Refill(s) 0, Pharmacy: [facility] #[id number], [id number], 1 pack By mouth Daily,x6 Days,Instr:as directed on package labeling, 75.45, 11/02... Start Date: 11/16/22 Stop Date: 11/22/22 Status: Ordered omeprazole 20 mg, By mouth, at bedtime, 0, 12/02/21 8:58:00 CDT, Substitution Permitted Start Date: 12/02/21 Status: Ordered ondansetron 4 mg oral tablet 4 mg = 1 tab, By mouth, Q8H, # 15 tab, Refill(s) 0, Pharmacy: [facility], [id number], 1 tab By mouth Q8H, 73.4, 10/19/22 17:22:00 CDT, kg, Weight Start Date: 10/20/22 Stop Date: 10/20/22 Status: Ordered Robaxin 500 mg oral tablet 500 mg = 1 tab, By mouth, QID, PRN Muscle Spasms, # 56 tab, Refill(s) 0, Pharmacy: [facility] #[id number], [id number], 1 tab By mouth QID,x14 Days,PRN:Muscle Spasms, [...] Joint injections 06/12/14 Completed Spinal Injections with Nexio 04/2014 Completed Coccygeal Injection 09/11/13 Compl eted [...] to oldest [Reference Range]: 1 Blood Pressure 110/78 (11/16/22 12:07 PM) Height (inches) (Clinical) 66 in (11/16/22 12:07 PM) BMI (Clinical) 0 kg/m2 (11/16/22 12:07 PM) Social History Social History Type Response Smoking [...] Safety Implantable Status Assigning Authority Unknown Unknown [id number] Unknown 04/04/27 Unknown Unknown Active Unkn own Unknown [id number] Unknown Unknown 03/03/24 Unknown Unknown Active Unknown Unknown [id number] Unknown Unknown 08/07/24 Unknown Unknown Active Unknown Unknown [id number] Unknown Unknown 09/12/24 Unknown Unknown Active Unknown Procedure Provider Procedure Date Device Type Site Unknown Unknown 10/19/22 Unknown Spine - Lumbar Device Identifier Serial Number Lot or Batch Number Manufacturing Date Expiration Date Distinct Identification Code MRI Safety Implantable Status Assigning Authority Unknown Unknown [id number] Unknown 02/02/24 Unknown Unknown Active Unknown Unknown [id number] Unknown Unknown 03/08/24 Unknown Unknown Active Unknown Unknown Unknown [id number] Unknown 04/04/27 Unknown Unknown Active Unkn own Unknown Unknown [id number] Unknown 06/03/25 Unknown Unknown Active Unknown Unknown Unknown [id number] Unknown 04/04/27 Unknown Unknown Active Unkn own Unknown [id number] Unknown Unknown 09/12/24 Unknown Unknown Active [...] Code MRI Safety Implantable Status Assigning Authority [id number] Unknown Unknown 03/17/24 Unknown Unknown Active GS1 [id number] Unknown Unknown 03/17/24 Unknown Unknown Active GS1 Unknown Unknown [id number] Unknown 03/09/27 Unknown Unknown Active Unknown Unknown Unknown [id number] Unknown 12/15/26 Unknown Unknown Active Unknown Unknown Unknown Unknown Unknown Unknown Unknown Unknown Active Unk nown Unknown Unknown Unknown Unknown Unknown Unknown Unknown Active Unk nown Neurological surgery Outpatient Note * Ernie Flowers MD: PERFORM Event Display: Neurosurgery Office/Clinic Note Authored Date: [id number] Chief Complaint 76 y/o female s/p L2-5 Optilif //. She notes LBP that radiates into the LLE. She c/o n/t in the LLE. General Information Information Given By: Patient (11/16/22 12:07:00) Nurse Intake Nursing Intake?? General Information?? Pain Information?? Physicians and Specialties: Dr. Lois Bran - PCP, ??Claude EverettMSkelsea Flowers - Neurosurgery,Daksha Sierra NP- [facility] (11/16/22) Pain Intensity: 4 (11/16/22) Information Given By: Patient (11/16/22) Pain at Best: 4 (11/16/22) ?? Pain at Worst:??9??High (11/16/22) ?? Pain Location: LBP LLE (11/16/22) ?? Pain ??Quality: burning (11/16/22) History of Present Illness May??presents??for follow-up 1 month following??the L2-5??posterior fusion.?? She reports when??she had initially??returned home she sustained??a fall and since then has been having??pain in the right sacroiliac region as??well??as the??left anterior thigh??with??associated??numbness in that distribution.?? She has been utilizing a brace as well??as the bone??stimulator??and utilizes??a brace when ambulating.?? She has not used pain??medications??at much and has been primarily on Tylenol. ? Review of Systems General Statement:Denies significant change [...] urinary hesitancy & urethral discharge Musculoskeletal Admits to:Back pain,Sciatic pain,Weakness Skin Statement:Denies rashes, lesions & pruritus Neurologic Admits to:Balance issues,Paresthesia Psychiatric Statement:Denies symptoms of anxiety, depression, & insomnia Endocrine Statement:Denies excessive thirst, excessive urination, and changes in skin or hair texture Heme/Lymph Statement:Denies easy bleeding and bruising Allergy/Immunology Statement:Denies seasonal allergies and persistent infections Sleep Admits to:Difficulty getting or staying asleep Physical Exam Vitals & Measurements HR:??81?? RR:??19?? BP:??110/78?? HT:??66??in?? BMI:??0?? General: Well-developed, well-nourished, in no distress. HEENT: [...] all groups Sensory grossly intact??except??numbness in the left L1-2 distribution?? Reflexes 2+ Cerebellar normal Gait antalgic Assessment/Plan S/P lumbar fusion(Arthrodesis status: Z98.1) Ordered: Postoperative Follow Up Visit [id number] ?? Other May??presents with??low back pain and left??anterior??thigh numbness along??with right sacroiliac pain??following a fall.?? She had??a L2-5 posterior??fusion about a month??ago??and as soon as shereturned home??she sustained??this fall and since then??has been having??these symptoms. ?? She has been compliant??with the brace as well??as bone stimulator.?? She utilizes??a walker??for ambulating. ?? We reviewed x-rays??today that demonstrate??instrumentation to be in appropriate position.?? There appears??to be evidence of??compression of the superior??endplate of L3 when??compared to the intraoperative x-rays as well??as some??anterior??displacement of the L4 vertebral body??compared to the pr eoperative x-rays. ?? Will have??her started outpatient??physical therapy??at [place] Prescription??for Medrol Dosepak and gabapentin will be sent??to the pharmacy Refer to bone density??clinic for evaluation??and treatment ?? Continue lifting, pulling and pushing restrictions??of 10 lb ?? Follow-up in??2 months with??x-rays prior??to appointment.?? All questions answered??in detail. ? Problem List/Past Medical History Bloating: ?? Actinic keratosis: ?? Acute constipation: ?? Vaginal atrophy: ?? Screening for breast cancer: ?? Bronchitis: ?? Daytime somnolence: ?? Degenerative disc disease, cervical: ?? Diarrhea: ?? Digestive system reflux: ?? [...] ?? Skin tag: ?? Sleep apnea: ?? Spinal instability: ?? Cervical stenosis of spine: ?? Spondylolisthesis: ?? Toe problem: ?? Vertigo: ?? Need for hepatitis C screening test: ?? Procedure/Surgical History ???L2-5 Optilif (10/19/2022)???C5-7 ACDF (07/11/2022)???MRI lumbar spine (04/05/2022)???X-ray lumbar spine (03/06/2022)???MRI of the cervical spine (11/02/2021)???Sleep Apnea Cpap (04/08/2019)???DexaScan (01/09/2018)???Colonoscopy (10/18/2017)???Left shoulder surgery (09/27/2017)???Left Shoulder Injection (03/12/2017)???Bilateral L 5, S1, S2, S3 MNBB RFA (05/15/2016)???LUMBAR/Sacral MEDIAL BRANCH NEUROTOMY (RFA) BILATERAL (08/12/2015)???Bilateral Sacroiliac Joint Injection (07/14/2015)???Bilateral Sacroiliac Joint Injection (01/26/2015)???Bilateral L5-S3 Medial Branch Neurotomies (12/02/2014)???Bilateral SI Joint injections (06/12/2014)???Spinal Injections with Nexio ()???Coccygeal Injection (09/11/2013)???Diaphragm procedure (2004)???Hysterectomy (1989)??? section(1973)???Appendectomy (1954)? Medications Home Medications (10) Active acetaminophen 325 mg oral tablet??975 mg,Start_date: 10/19/22,Refills: 0, By mouth, QID celecoxib 200 mg oral capsule??200 mg = 1 cap,Start_date: 10/19/22,Refills: 0, By mouth, BID Colace 100 mg oral capsule??100 mg = 1 cap,Start_date: 10/19/22,Refills: 0, PRN, By mouth, BID ergocalciferol 1.25 mg (50,000 intl units) oral capsule??50,000 IntUnit = 1 cap,Start_date: 10/05/22,Refills: 0, By mouth, QW (once a week) estradiol 0.1 mg/g vaginal cream??1 g,Start_date: 06/21/28,Refills: 7, VAG, at bedtime gabapentin 300 mg oral capsule??300 mg = 1 cap,Start_date: 10/19/22,Refills: 0, By mouth, TID omeprazole??20 mg,Start_date: 12/02/21,Refills: 0, By mouth, at bedtime ondansetron 4 mg oral tablet??4 mg = 1 tab,Start_date: 10/20/22,Refills: 0, By mouth, Q8H Robaxin 500 mg oral tablet??500 mg = 1 tab,Start_date: 10/31/22,Refills: 0, PRN, By mouth, QID traMADol 50 mg oral tablet??50 mg = 1 tab,Start_date: 11/15/22,Refills: 0, By mouth, Q4H Allergies cortisone??(muscles in legs jump, cramps) statins??(Myalgia) Social History Alcohol Denies Employment/School Status: Retired. Exercise Home/Environment Marital status . Seatbelt use: Always. Hobbies: horses. Tattoos: No. place: [place]. Water source: well. Nutrition/Health Type of diet: No Diet Restrictions. Caffeine intake amount: 1-2 drinks/day. Calcium intake: Adequate Intake. Sun exposure: Frequently - w/o sunscreen. Sexual High risk behavior: No. Substance Abuse Denies Tobacco Smoking Status: Former smoker. Smokeless tobacco use: Never. Has the patient smoked in the last 365days, even once? No. Stopped at age: 36 Years. Family History Lung cancer: MOTHER. Electronically signed by:Ernie Flowers MD 11/16/22 12:54 Patient Care team information Care Team Personnel Name: Lois Bran MD Position: PX Physician - Family Practice Member Role: Primary Care Physician Address: Address: [facility] [place] [address]- Care Team Related Persons Name: MAYELA PHELPS JR Address: home [address] [place], [place] [id number] [facility] Address: mailing [address] [place], [place] [phone] [facility] Name: RADHA MARMOLEJO
--- OUTSIDE RECORDS SUMMARY | 2023-01-05 09:01 | XMS_ITS | Continuity of Care Document ---
Author Name Unknown Organization [facility] Address [address] [place] [address]- Care Team Providers Care Lens Shaper Grinder Name Role Phone Yina [place], Lois Rueda Primary Care Physician [phone] Encounter 08/07/22 - 08/08/22 [facility] [address] [place] [address]- [place] Encounter Diagnosis Cervical vertebral fusion(Discharge Diagnosis) - 08/07/22 Encounter for screening for other disorder(Discharge Diagnosis) - 08/07/22 Attending Physician: Lionel [place], Ernie Allergies, Adverse Reactions, Alerts Substance Reaction Severity Status statins 1 Myalgia Moderate Active 1MUSCLE PAIN Assessment and Plan Extracted from: Title:Office Visit - Simple Author:Annette Duff Date:08/07/22 1.??Cervical vertebral fusio n(Fusion of spine, cervical region: M43.22) Ordered: [place] [id number] Return to Clinic ? Adrián Phelps is??in clinic??today??approximately 1 month status??post??ACDF.?? She reports??she is doing very well.?? Has continue??to observe??restrictions??and wear cervical collar.?? She did undergo??XR imaging??prior??to appointment.?? Imaging??reveals??stable postoperative??changes. Patient is going??to continue??wearing the cervical collar for another??2 months She??can increase??her weight lifting??to 20 lb Patient is going to be referred to??fragility fracture??Clinic for bone health evaluation??due to intraoperative??findings? Follow-up??2 months with XR??cervical spine??prior??to appointment.?? All questions answered? Addendum by Laith DAVIS, aMrk rueda on August 07, 2022 14:30:31 MERCURY PURIFIER Referral placed to Fragility Clinic Follow-up with x-rays scheduled for 10-05-22. Appt card given to patient. Future Appointments Appointment Date:09/12/2022 01:30:00 PM Scheduled Provider:Ernie Schroeder Location:Trauma Surgery Appointment Type:New Patient Appointment Date:09/14/2022 10:00:00 AM Scheduled Provider:Lois Bran MD Location:[facility] Appointment Type:Established Patient Appointment Date:10/05/2022 09:30:00 AM Scheduled Provider: Location:[facility] Procedure Appointment Type:Rad Appointment Date:10/05/2022 10:30:00 AM Scheduled Provider:Ernie Flowers MD Location:[facility] Appointment Type:Established Patient Future Scheduled Tests [...] (Td) adult/adol 06/04/11 Gi arlene 1Location History: [place] 2Early/Late Reason: Other : late entry 3Location History: [place] 4Location [place]: [place] 5Location History: [place] 6Location History: [place] Medications acetaminophen 325 mg oral tablet 975 mg, By mouth, QID, # 84 tab, Refill(s) 0, Pharmacy: [facility], [id number], TAB, 975 mg By mouth QID, 73.2, 07/11/22 6:24:00 MERCURY PURIFIER, kg, Weight Start Date: 07/11/22 Status: Ordered estradiol 0.1 mg/g vaginal cream 1 = g, VAG, at bedtime, Use 2-3 times a week prn, # 42.5 g, Refill(s) 7, Route to Pharmacy Electronically, Pharmacy: [facility] #[id number], [id number], 1 g VAG at bedtime,Instr:Use 2-3 times [...] Joint injections 06/12/14 Completed Spinal Injections with [employer] 04/2014 Completed Coccygeal Injection 09/11/13 Compl eted [...] to oldest [Reference Range]: 1 Blood Pressure 120/58 (08/07/22 10:33 AM) Height (inches) (Clinical) 66 in (08/07/22 10:33 AM) Weight (kg) (Clinical) 75.27 kg (08/07/22 10:33 AM) BMI (Clinical) 26.7 kg/m2 (08/07/22 10:33 AM) Social History Social History Type Response [...] Code MRI Safety Implantable Status Assigning Authority [id number] [id number] Unknown Unknown 03/17/24 Unknown Unknown Active GS1 [id number] Unknown Unknown 03/17/24 Unknown Unknown Active GS1 Unknown Unknown [id number] Unknown 03/09/27 Unknown Unknown Active Unknown Unknown Unknown [id number] Unknown 12/15/26 Unknown Unknown Active Unknown Unknown Unknown Unknown Unknown Unknown Unknown Unknown Active Unk nown Unknown Unknown Unknown Unknown Unknown Unknown Unknown Active Unk nown Neurological surgery Outpatient Note * Maida Duff E: PERFORM, MODIFY Event Display: Neurosurgery Office/Clinic Note Authored Date: [id number] General Information Nurse Intake General Information Physicians and Specialties: Dr. Lois Bran -- PCPDr. Ernie Flowers -- Neurosurgeon (08/07/22) Information Given By: Patient (08/07/22) Pain Information Nurse Intake Pain Information Pain at Best: 1 (08/07/22) Pain at Worst: 4 (08/07/22) History of Present Illness 76 y/o female s/p C5-7 ACDF 07/11/22. Patient notes some neck and BUE pain at times. Pain is aggravated by sleeping is is relived by activity. Review of Systems General Statement:Denies significant change [...] staying asleep Physical Exam Vitals & Measurements HR:??79?? RR:??21?? BP:??120/58?? HT:??66??in?? WT:??165.6??lb?? WT:??75.27??kg?? BMI:??26.7?? General: Well-developed, well-nourished, in no distress. HEENT: atraumatic Heart: Regular rate and rhythm. Lungs: Breathing Room air without difficulty, no labored breathing Abdomen: Soft Musculoskeletal: Normal tone and range of motion Neuro: Awake, alert and oriented DIAZ well grossly No sensory complaints Assessment/Plan 1.??Cervical vertebral fusion(Fusion of spine, cervical region: M43.22) Ordered: Postoperative [place] Visit [id number] Return to Clinic ? Adrián Phelps is??in clinic??today??approximately 1 month status??post??ACDF.?? She reports??she is doing very well.?? Has continue??to observe??restrictions??and wear cervical collar.?? She did undergo??XR imaging??prior??to appointment.?? Imaging??reveals??stable postoperative??changes. Patient is going??to continue??wearing the cervical collar for another??2 months She??can increase??her weight lifting??to 20 lb Patient is going to be referred to??fragility fracture??Clinic for bone health evaluation??due to intraoperative??findings? Follow-up??2 months with XR??cervical spine??prior??to appointment.?? All questions answered? Medications Home Medications (3) Active acetaminophen 325 mg oral tablet??975 mg,Start_date: 07/11/22,Refills: 0, By mouth, QID estradiol 0.1 mg/g vaginal cream??1 g,Start_date: 06/21/28,Refills: 7, VAG, at bedtime omeprazole??20 mg,Start_date: 12/02/21,Refills: 0, By mouth, Daily Medication reconciliation completed on this patient today Allergies statins??(Myalgia) Electronically signed by:Maida Duff 08/07/22 13:43 Electronically cosigned by: Maida Duff 08/07/22 13:48 * Kailey Ozuna RN: PERFORM Event Display: Neurosurgery Office/Clinic Note Authored Date: Referral placed to Fragility Clinic Follow-up with x-rays scheduled for 10-05-22. Appt card given to patient. Electronically signed by:Kailey Ozuna RN 08/07/22 14:31 Patient Care team information Care Team Personnel Name: [place] MD, Lois A Position: PX Physician - Family Practice Member Role: Primary Care Physician Address: Address: [address] [place] [address]- Care Team Related Persons Name: MAYELA PHELPS JR Address: home [address] [facility] [place] [phone] [facility] Address: mailing [address] [place], [place] [phone] [facility] Name: RADHA MARMOLEJO
--- OUTSIDE RECORDS SUMMARY | 2023-01-05 09:01 | XMS_ITS | Continuity of Care Document ---
Author Name Unknown Organization [facility] Address [address] [place] [address]- Care Team Providers Care Poultry Hatchery Man Name Role Phone Lois Bran MD Primary Care Physician [phone] Encounter [facility] Number [id number] Date(s): 07/06/22 - 07/08/22 [facility] [address], [place] [address] Discharge Disposition: .Discharge to Home (Routine) Attending Physician: Ernie Flowers MD Allergies, Adverse Reactions, Alerts Substance Reaction Severity Status statins 1 Myalgia Moderate Active 1MUSCLE PAIN Assessment and Plan Future Appointments Appointment Date:07/11/2022 10:30:00 AM Scheduled Provider: Location:[facility] Surgery Appointment Type:Surgery Appointment Date:08/07/2022 12:15:00 PM Scheduled Provider: Location:[facility] Procedure Appointment Type:Rad Appointment Date:08/07/2022 12:30:00 PM Scheduled Provider:Ernie Flowers MD Location:[facility] Appointment Type:Post-Op Appointment Date:09/14/2022 10:00:00 AM Scheduled Provider:Lois Bran MD Location:[facility] Appointment Type:Established Patient Future Scheduled Tests Laboratory* Lipid Panel with calculated LDL 08/31/22 * CBC-d 08/31/22 * TSH 08/31/22 * CMP 08/31/22 Radiology* XR Cervical Spine AP Lateral 08/07/22 * XR Lumbar Spine Complete 03/03/22 * BD Bone Densitometry 05/03/22 * BD Bone Densitometry 08/26/21 * MR Cervical wo Contrast 04/07/22 * [...] Reason: Other : late entry 3Location History: [place] 4Location [place]: [place] 5Location [place]: [place] 6Location [place] Medications estradiol 0.1 mg/g vaginal cream 1 = g, VAG, at bedtime, Use 2-3 times a week prn, # 42.5 g, Refill(s) 7, Route to Pharmacy Electronically, Pharmacy: [facility] #[id number], [id number], 1 g VAG at bedtime,Instr:Use 2-3 times a week prn, 74.55, 06/19/22... Start Date: 06/21/28 Status: Ordered meloxicam 15 mg oral tablet 15 mg = 1 tab, By mouth, Daily, # 90 tab, Refill(s) 2, Pharmacy: [facility] #[id number], [id number], 1 tab By mouth Daily, 74.55, 06/19/22 11:37:00 [employer] D[employer]ER, kg, Weight Start Date: 06/26/22 Status: Ordered Multivitamin 1 tab, By mouth, Daily, Last Dose 06.26.22, Refill(s) 0 Start Date: 3/19/18 Status: Ordered omeprazole 20 mg, By mouth, Daily, 0, 12/02/21 8:58:00 CDT, Substitution Permitted Start Date: 12/02/21 Status: Ordered Tylenol 1,000 mg, By mouth, as needed, Refill(s) 0 Start Date: 06/19/22 Status: Ordered Vitamin C = 1 tab, By mouth, Daily, Last Dose 06.26.22, Refill(s) 0 Start Date: 08/20/17 Status: Ordered Zinc 140 mg, By mouth, Daily, Last Dose 06.26.22, Refill(s) 0 Start Date: 04/12/22 Status: Ordered Problem List Condition Confirmation Course [...] Joint injections 06/12/14 Completed Spinal Injections with [employer] 04/2014 Completed Coccygeal Injection 09/11/13 Compl eted [...] case Results Laboratory List Name Date BMP 07/06/22 CBC-d 07/06/22 PT/INR 07/06/22 PTT 07/06/22 TSABS auto 07/06/22 TSType 07/06/22 zCBC Automated Diff 07/06/22 Most recent to oldest [Reference Range]: 1 Type and RH Interp O Positive *Unknown* (07/06/22 11:52 AM) Antibody Screen Interp a Negative (07/06/22 11:52 AM) Anion Gap [2-15 mEq/L] 11 mEq/L (07/06/22 11:52 AM) Glucose, Serum/Plasma [70-100 mg/dL] 105 mg/dL *HI* (07/06/22 11:52 AM) WBC [4.8-10.8 Thous/mm3] 8.5 Thous/mm3 (07/06/22 11:52 AM) Hct [37.0-47.0 %] 45.8 % (07/06/22 11:52 AM) Hgb [12.0-16.0 g/dL] 14.7 g/dL (07/06/22 11:52 AM) RBC [4.20-5.40 Million/mm3] 5.07 Million /mm3 (07/06/22 11:52 AM) MCV [80.0-100.0 fl] 90.3 fl (07/06/22 11:52 AM) MCH [26.0-34.0 pg] 29.0 pg (07/06/22 11:52 AM) MCHC [31.0-36.5 g/dL] 32.1 g/dL (07/06/22 11:52 AM) RDW [10.4-14.4 %] 13.0 % (07/06/22 11:52 AM) Platelets [130-440 Thous/mm3] 293 Thous/ mm3 (07/06/22 11:52 AM) MPV [9.4-12.4 fl] 9.8 fl (07/06/22 11:52 AM) AutoNeutrophil [43.0-78.0 %] 60.8 % (07/06/22 11:52 AM) AutoLymphs [20.0-40.0 %] 27.9 % (07/06/22 11:52 AM) AutoMono [2.0-10.0 %] 6.8 % (07/06/22 11:52 AM) AutoEo [0.0-7.0 %] 3.5 % (07/06/22 11:52 AM) Sodium [136-145 mEq/L] 140 mEq/L (07/06/22 11 AM) Potassium [3.5-5.1 mEq/L] 4.2 mEq/L (07/06/22 1152 AM) Chloride [98-107 mEq/L] 104 mEq/L (07/06/22 1152 AM) AbsNeut [2.0-8.0 Thous/mm3] 5.2 Thous/mm 3 (07/06/22 1152 AM) CO2 [21-32 mEq/L] 25 mEq/L (07/06/22 11 AM) BUN [7-18 mg/dL] 16 mg/dL (07/06/22 AM) Creatinine [0.51-0.95 mg/dL] 0.77 mg/dL (07/06/22 1152 AM) AbsLymph [1.0-4.0 Thous/mm3] 2.4 Thous/m m3 (07/06/22 11:52 AM) AbsMono [0.1-1.0 Thous/mm3] 0.6 Thous/mm 3 (07/06/22 11:52 AM) AbsEo [0.0-0.5 Thous/mm3] 0.3 Thous/mm3 (07/06/22 11:52 AM) AbsBaso [0.0-0.2 Thous/mm3] 0.0 Thous/mm 3 (07/06/22 1152 AM) AutoBaso [0.0-2.5 %] 0.6 % (07/06/22 1152 AM) Calcium [8.3-10.6 mg/dL] 9.2 mg/dL (07/06/22 1152 AM) PTT [22-33 sec] 25 sec (07/06/22 11 AM) PT [9.0-13.5 sec] 10.1 sec (07/06/22 11:52 AM) INR [0.80-1.30] 0.92 (07/06/22 1152 AM) eGFR [>=60 mL/min/1.73 m2] 73 mL/min/1.7 3 m2 (07/06/22 11:52 AM) eGFR if [>=60 mL/min/1. 73 m2] 88 mL/min/1.73 m2 (07/06/22 11:52 AM) Imm. Grans % [0-5 %] <5 % (07/06/22 11:52 AM) Imm. Grans # [0.0-0.5 Thous/mm3] <0.5 Th ous/mm3 (07/06/22 11:52 AM) ANC-AbsNeutCount 5.2 Thous/mm3 *NA* (07/06/22 11:52 AM) Radiology Reports * Exam Date Time Procedure Performing Provider Status 07/06/22 12:59 PM XR Chest PA Lateral Left Routine Du aguayo MD, Ernie; Auth (Verified) Notes: (XR Chest PA Lateral Left Routine) Reason For Exam: Pre op Neuro Surgery REPORT XR Chest PA Lateral Left Routine PROCEDURE INFORMATION: Exam: XR Chest Exam date and time: 07/06/2022 12:59 PM Age: 76 years old Clinical indication: Pre-operative exam; Respiratory screening exam; Patient HX: Pre-op neuro; Additional info: Pre op neuro surgery TECHNIQUE: Imaging protocol: Radiologic exam of the chest. Views: 2 views. Total images: 2 COMPARISON: CR XR Shoulder 3 View Left Routine 02/14/2017 2:59 PM FINDINGS: Lungs: Unremarkable. No consolidation. Pleural spaces: Unremarkable. No pleural effusion. No pneumothorax. Heart/Mediastinum: Unremarkable. No cardiomegaly. Bones/joints: Unremarkable. IMPRESSION: No acute findings. Electronically signed by: Gumaro Phelps DO, [facility], 07/06/2022 13:5 Gumaro Phelps MD Signed 07/06/22 13:05:28 (Electronic Signature) Technologist KW Vital Signs Most recent to oldest [Reference Range]: 1 Blood Pressure 139/76 (07/06/22 11:49 AM) Height (inches) (Clinical) 66 in (07/06/22 11:49 AM) Weight (kg) (Clinical) 75.6 kg (07/06/22 11:49 AM) BMI (Clinical) 26.8 kg/m2 (07/06/22 11:49 AM) Scale Type Standing (07/06/22 11:49 AM) Social History Social History Type Response Smoking Status Former smoker; Smoke less tobacco use: Never; Has the patient smoked in the last 365 days, even once? No entered on: 07/03/22 Sex Female XR Chest PA and Lateral * Gumaro Phelps MD: PERFORM, VERIFY, VERIFY Event Display: Report Authored Date: Note * Gumaro Phelps MD: PERFORM, VERIFY, VERIFY Event Display: Powers[employer] Read Authored Date: PROCEDURE INFORMATION: Exam: XR Chest Exam date and time: 07/06/2022 12:59 PM Age: 76 years old Clinical indication: Pre-operative exam; Respiratory screening exam; Patient HX: Pre-op neuro; Additional info: Pre op neuro surgery TECHNIQUE: Imaging protocol: Radiologic exam of the chest. Views: 2 views. Total images: 2 COMPARISON: CR XR Shoulder 3 View Left Routine 02/14/2017 2:59 PM FINDINGS: Lungs: Unremarkable. No consolidation. Pleural spaces: Unremarkable. No pleural effusion. No pneumothorax. Heart/Mediastinum: Unremarkable. No cardiomegaly. Bones/joints: Unremarkable. IMPRESSION: No acute findings. Electronically signed by: Gumaro Phelps DO, [facility], 07/06/2022 13:5 Gumaro Phelps MD Signed 07/06/22 13:05:28 (Electronic Signature) Technologist KW * Tyree Cruz MD R: SIGN, VERIFY Event Display: EKG 12-Lead Authored Date: Patient Care team information Care Team Personnel Name: Lois Bran MD Position: PX Physician - Family Practice Member Role: Primary Care Physician Address: Address: [address] [place], [place] [address] Care Team Related Persons Name: MAYELA PHELPS JR Address: home [address] [place], [place] [phone] [facility] Address: mailing [address] [address] [place], [place] [phone] [facility]
--- OUTSIDE RECORDS SUMMARY | 2023-01-05 09:02 | XMS_ITS | Continuity of Care Document ---
Author Name Unknown Organization [facility] Address [address] [place] [address]- Care Team Providers Care Turpentine Distiller Name Role Phone Lois Bran MD Primary Care Physician Encounter [facility] Number [id number] Date(s): 09/28/22 - 09/30/22 [facility] [address] [place], [place] [address] [phone] Attending Physician: Ernie Schroeder Allergies, Adverse Reactions, Alerts Substance Reaction Severity Status statins 1 Myalgia Moderate Active 1MUSCLE PAIN Assessment and Plan Future Appointments Appointment Date:10/05/2022 09:30:00 AM Scheduled Provider: Location:[facility] Procedure Appointment Type:Rad Appointment Date:10/05/2022 10:30:00 AM Scheduled Provider:Ernie Flowers MD Location:[facility] Appointment Type:Established Patient Appointment Date:10/05/2022 11:45:00 AM Scheduled Provider:Ernie Schroeder Location:Trauma Surgery Appointment Type:Established Patient Appointment Date:05/15/2023 09:00:00 AM Scheduled Provider:Lois Bran MD Location:[facility] Appointment Type:Established Patient Future Scheduled Tests Radiology* [...] (Td) adult/adol 06/04/11 Gi arlene 1Location History: [place] 2Early/Late Reason: Other : late entry 3Location History: [place] 4Location History: [place] 5Location History: [place] 6Location History: [place] Medications acetaminophen 325 mg oral tablet 975 mg, By mouth, QID, # 84 tab, Refill(s) 0, Pharmacy: [facility], [id number], TAB, 975 mg By mouth QID, 73.2, 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, kg, 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 Start Date: 07/11/22 Status: Ordered estradiol 0.1 mg/g vaginal cream 1 = g, VAG, at bedtime, Use 2-3 times a week prn, # 42.5 g, Refill(s) 7, Route to Pharmacy Electronically, Pharmacy: [facility] #[id number], [id number], 1 g VAG at bedtime,Instr:Use 2-3 times [...] Joint injections 06/12/14 Completed Spinal Injections with [facility] 04/2014 Completed Coccygeal Injection 09/11/13 Compl eted Diaphragm procedure 2005 Compl eted Hysterectomy 1989 Completed section 1974 [...] Code MRI Safety Implantable Status Assigning Authority [id number] Unknown Unknown 03/17/24 Unknown Unknown Active GS1 [id number] Unknown Unknown 03/17/24 Unknown Unknown Active GS1 Unknown Unknown [id number] Unknown 03/09/27 Unknown Unknown Active Unknown Unknown Unknown [id number] Unknown 12/15/26 Unknown Unknown Active Unknown Unknown Unknown Unknown Unknown Unknown Unknown Unknown Active Unk nown Unknown Unknown Unknown Unknown Unknown Unknown Unknown Active Unk nown Patient Care team information Care Team Personnel Name: Lois Bran MD Position: PX Physician - Family Practice Member Role: Primary Care Physician Address: Address: [address] [place] [address]- Care Team Related Persons Name: MAYELA PHELPS JR Address: home [id number] [place] [phone] [facility] Address: mailing [address] [place] [phone] [facility] Name: RADHA MARMOLEJO
--- OUTSIDE RECORDS SUMMARY | 2023-01-05 09:02 | XMS_ITS | Continuity of Care Document ---
Author Name Unknown Organization [facility] Address [address] [place] [address]- Care Team Providers Care Hand Rug Cleaner Name Role Phone Lois Bran MD Primary Care Physician Encounter [facility] Number [id number] Date(s): 09/14/22 - 09/16/22 [facility] [address] [place] [address]- Attending Physician: Lois Bran MD Admitting Physician: Referring, DR Figueroa Allergies, Adverse Reactions, Alerts Substance Reaction Severity Status statins 1 Myalgia Moderate Active 1MUSCLE PAIN Assessment and Plan Future Appointments Appointment Date:09/28/2022 11:15:00 AM Scheduled Provider:Ernie Schroeder Location:Trauma Surgery Appointment Type:New Patient Appointment Date:10/05/2022 09:30:00 AM Scheduled Provider: Location:[facility] Procedure Appointment Type:Rad Appointment Date:10/05/2022 10:30:00 AM Scheduled Provider:Ernie Flowers MD Location:[facility] Appointment Type:Established Patient Appointment Date:05/15/2023 09:00:00 AM Scheduled Provider:Lois Bran MD Location:[facility] Appointment Type:Established Patient Future Scheduled Tests Radiology* [...] Reason: Other : late entry 3Location History: [place] 4Location [place] 5Location [place]: [place] 6Location History: [place] Medications acetaminophen 325 mg oral tablet 975 mg, By mouth, QID, # 84 tab, Refill(s) 0, Pharmacy: [facility], [id number], TAB, 975 mg By mouth QID, 73.2, 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, kg, Weight Start Date: 07/11/22 Status: Ordered estradiol 0.1 mg/g vaginal cream 1 = g, VAG, at bedtime, Use 2-3 times a week prn, # 42.5 g, Refill(s) 7, Route to Pharmacy Electronically, Pharmacy: [facility] #[id number], [id number], 1 g VAG at bedtime,Instr:Use 2-3 times [...] Joint injections 06/12/14 Completed Spinal Injections with [employer] 04/2014 Completed Coccygeal Injection 09/11/13 Compl eted [...] Code MRI Safety Implantable Status Assigning Authority [id number] [id number] Unknown Unknown 03/17/24 Unknown Unknown Active GS1 [id number] [id number] Unknown Unknown 03/17/24 Unknown Unknown Active GS1 Unknown Unknown [id number] Unknown 03/09/27 Unknown Unknown Active Unknown Unknown Unknown [id number] Unknown 12/15/26 Unknown Unknown Active Unknown Unknown Unknown Unknown Unknown Unknown Unknown Unknown Active Unk nown Unknown Unknown Unknown Unknown Unknown Unknown Unknown Active Unk nown Patient Care team information Care Team Personnel Name: Lois Bran MD Position: Physician - Family Practice Member Role: Primary Care Physician Address: Address: [facility] [address] [place], [place] [address] [place] [address] Care Team Related Persons Name: MAYELA PHELPS JR Address: home [address] [place], [place] [phone] [facility] Address: mailing [address] [place], [place] [phone] [facility] Name: RADHA MARMOLEJO
--- OUTSIDE RECORDS SUMMARY | 2023-01-05 09:02 | XMS_ITS | Continuity of Care Document ---
Author Name Unknown Organization [facility] Address [address] [place] [address]- Care Team Providers Care Media Relations Director Name Role Phone [place], Lois Cunningham Primary Care Physician Encounter [facility] Number [id number] Date(s): 07/11/22 - 07/11/22 [facility] [address] [place] [address]- [phone] Encounter Diagnosis Cervical radiculopathy(Discharge Diagnosis) - 07/11/22 Discharge Disposition: .Discharge to Home (Routine) Attending Physician: Ernie Flowers MD Admitting Physician: Ernie Flowers MD Allergies, Adverse Reactions, Alerts Substance Reaction Severity Status statins 1 Myalgia Moderate Active 1MUSCLE PAIN Assessment and Plan Extracted from: Title:Instructions to Patients Author:Paco Nelson RN Date:07/11/22 Dermatology Surgical Drain Home Care Surgical drains are used to remove extra fluid that normally builds up in a surgical wound after surgery. A surgical drain helps to heal a surgical wound. Different kinds of surgical drains include: ? ? Active drains. These drains use suction to pull drainage away from the surgical wound. Drainage flows through a tube to a container outside of the body. With these drains, you need to keep the bulb or the drainage container flat (compressed) at all times, except while you empty it. Flattening the bulb or container creates suction. ? ? Passive drains. These drains allow fluid to drain naturally, by gravity. Drainage flows through a tube to a bandage (dressing) or a container outside of the body. Passive drains do not need to be emptied. A drain is placed during surgery. Right after surgery, drainage is usually bright red and a little thicker than water. The drainage may gradually turn yellow or pink and become thinner. It is likely that your health care provider will remove the drain when the drainage stops or when the amount decreases to 1? 2 Tbsp (15? 30 mL) during a 24-hour period. Supplies needed: ? ? Tape. ? ? Germ-free cleaning solution (sterile saline). ? ? Cotton swabs. ? ? Split gauze drain sponge: 4 x 4 inches (10 x 10 cm). ? ? Gauze square: 4 x 4 inches (10 x 10 cm). How to care for your surgical drain Care for your drain as told by your health care provider. This is important to help prevent infection. If your drain is placed at your back, or any other hyyz-rz-bcgzd area, ask another person to assist you in performing the following tasks: General care ? ? Keep the skin around the drain dry and covered with a dressing at all times. ? ? Check your drain area every day for signs of infection. Check for: ? ? Redness, swelling, or pain. ? ? Pus or a bad smell. ? ? Cloudy drainage. ? ? Tenderness or pressure at the drain exit site. Changing the dressing Follow instructions from your health care provider about how to change your dressing. Change your dressing at least once a day. Change it more often if needed to keep the dressing dry. Make sure you: 1. Gather your supplies. 2. Wash your hands with soap and water before you change your dressing. If soap and water are not available, use hand rd project manager. 3. Remove the old dressing. Avoid using scissors to do that. 4. Wash your hands with soap and water again after removing the old dressing. 5. Use sterile saline to clean your skin around the drain. You may need to use a cotton swab to clean the skin. 6. Place the tube through the slit in a drain sponge. Place the drain sponge so that it covers your wound. 7. Place the gauze square or another drain sponge on top of the drain sponge that is on the wound. Make sure the tube is between those layers. 8. Tape the dressing to your skin. 9. Tape the drainage tube to your skin 1? 2 inches (2.5? 5 cm) below the place where the tube enters your body. Taping keeps the tube from pulling on any stitches (sutures) that you have. 10. Wash your hands with soap and water. 11. Write down the color of your drainage and how often you change your dressing. How to empty your active drain 1. Make sure that you have a measuring cup that you can empty your drainage into. 2. Wash your hands with soap and water. If soap and water are not available, use hand rd project manager. 3. Loosen any pins or clips that hold the tube in place. 4. If your health care provider tells you to strip the tube to prevent clots and tube blockages: ? ? Hold the tube at the skin with one hand. Use your other hand to pinch the tubing with your thumb and first finger. ? ? Gently move your fingers down the tube while squeezing very lightly. This clears any drainage, clots, or tissue from the tube. ? ? You may need to do this several times each day to keep the tube clear. Do not pull on the tube. 5. Open the bulb cap or the drain plug. Do not touch the inside of the cap or the bottom of the plug. 6. Turn the device upside down and gently squeeze. 7. Empty all of the drainage into the measuring cup. 8. Compress the bulb or the container and replace the cap or the plug. To compress the bulb or the container, squeeze it firmly in the middle while you close the cap or plug the container. 9. Write down the amount of drainage that you have in each 24-hour period. If you have less than 2 Tbsp (30 mL) of drainage during 24 hours, contact your health care provider. 10. Flush the drainage down the toilet. 11. Wash your hands with soap and water. Contact a health care provider if: ? ? You have redness, swelling, or pain around your drain area. ? ? You have pus or a bad smell coming from your drain area. ? ? You have a fever or chills. ? ? The skin around your drain is warm to the touch. ? ? The amount of drainage that you have is increasing instead of decreasing. ? ? You have drainage that is cloudy. ? ? There is a sudden stop or a sudden decrease in the amount of drainage that you have. ? ? Your drain tube falls out. ? ? Your active drain does not stay compressed after you empty it. Summary ? ? Surgical drains are used to remove extra fluid that normally builds up in a surgical wound after surgery. ? ? Different kinds of surgical drains include active drains and passive drains. Active drains use suction to pull drainage away from the surgical wound, and passive drains allow fluid to drain naturally. ? ? It is important to care for your drain to prevent infection. If your drain is placed at your back, or any other base-of-mvgtr area, ask another person to assist you. ? ? Contact your health care provider if you have redness, swelling, or pain around your drain area. This information is not intended to replace advice given to you by your health care provider. Make sure you discuss any questions you have with your health care provider. Document Revised: 06/25/2019 Document Reviewed: 06/25/2019 [employer] Patient Education ?? 2021 [employer]. Gastroenterology How to Prevent Constipation After Surgery Constipation [...] movement. ? ? Having hard, dry, or kjqplr-fuvh-yxfnka stools (feces). ? ? Discomfort in the [...] as fried or sweet foods. These include portuguese fries, hamburgers, cookies, and candy. ? ? [...] use the restroom. Medicines ? ? Take pfqw-oac-fajfwkd and prescription medicines only as told by [...] provider. Document Revised: 04/07/2020 Document Reviewed: 04/07/2020 Elsevier Patient Education ?? 2021 [employer] Oncology Surgical Drain Record Empty your surgical drain as told by your health care provider. Use this form to write down the amount of fluid that has collected in the drainage container. Bring this form with you to your follow-up visits. Surgical drain #1 location: Date Time Amount Date Time Amount Date Time Amount Date Time Amount Date Time Amount Date Time Amount Date Time Amount Date Time Amount Date Time Amount Date Time Amount Date Time Amount Date Time Amount Date Time Amount Date Time Amount Date Time Amount Date Time Amount Date Time Amount Date Time Amount Date Time Amount Date Time Amount Date Time Amount Date Time Amount Date Time Amount Date Time Amount Date Time Amount Date Time Amount Date Time Amount Date Time Amount This information is not intended to replace advice given to you by your health care provider. Make sure you discuss any questions you have with your health care provider. Document Revised: 07/18/2021 Document Reviewed: 07/18/2021 [employer] Patient Education ?? 2021 [employer] Orthopedics Anterior Cervical Diskectomy and Fusion, Care After This sheet gives you information about how to care for yourself after your procedure. Your health care provider may also give you more specific instructions. If you have problems or questions, contact your health care provider. What can I expect after the procedure? After the procedure, it is common to have: ? ? Neck pain. ? ? Discomfort when swallowing. ? ? Slight hoarseness. Follow these instructions at home: Medicines ? ? Take homj-gai-wquthpz and prescription medicines only as told by your health care provider. ? ? If you were prescribed an antibiotic medicine, take it or use it as told by your health care provider. Do not stop using the antibiotic even if you start to feel better. ? ? Ask your health care provider if the medicine prescribed to you: ? ? Requires you to avoid driving or using heavy machinery. ? ? Can cause constipation. You may need to take actions to prevent or treat constipation, such as: ? ? Drink enough fluid to keep your urine pale yellow. ? ? Take tisk-tbe-daihfiu or prescription medicines. ? ? Eat foods that are high in fiber, such as beans, whole grains, and fresh fruits and vegetables. ? ? Limit foods that are high in fat and processed sugars, such as fried and sweet foods. ? ? If you are taking blood thinners: ? ? Talk with your health care provider before you take any medicines that contain aspirin or NSAIDs, such as ibuprofen. These medicines increase your risk for dangerous bleeding. ? ? Take your medicine exactly as told, at the same time every day. ? ? Avoid activities that could cause injury or bruising, and follow instructions about how to prevent falls. ? ? Wear a medical alert bracelet or carry a card that lists what medicines you take. If you have a neck brace: ? ? Wear the brace as told by your health care provider. Remove it only as told by your health care provider. ? ? Loosen the brace if your arms/fingers tingle, become numb, or turn cold and blue. ? ? Keep the brace clean. ? ? If the brace is not waterproof: ? ? Do not let it get wet. ? ? Cover it with a watertight covering when you take a bath or shower. Incision care ? ? Follow instructions from your health care provider about how to take care of your incision. Make sure you: ? ? Wash your hands with soap and water for at least 20 seconds before and after you change your bandage (dressing). If soap and water are not available, use hand rd project manager. ? ? Change your dressing as told by your health care provider. ? ? Leave stitches (sutures), skin glue, or adhesive strips in place. These skin closures may need to stay in place for 2 weeks or longer. If adhesive strip edges start to loosen and curl up, you may trim the loose edges. Do not remove adhesive strips completely unless your health care provider tells you to do that. ? ? Check your incision area every day for signs of infection. Check for: ? ? Redness, swelling, or more pain. ? ? Fluid or blood. ? ? Warmth. ? ? Pus or a bad smell. Managing pain, stiffness, and swelling If directed, put ice on the injured area. ? ? If you have a removable brace, remove it as told by your health care provider. ? ? Put ice in a plastic bag. ? ? Place a towel between your skin and the bag. ? ? Leave the ice on for 20 minutes, 2? 3 times a day. ? ? Remove the ice if your skin turns bright red. This is very important. If you cannot feel pain, heat, or cold, you have a greater risk of damage to the area. Activity ? ? Rest as told by your health care provider. ? ? Avoid sitting for a long time without moving. Get up to take short walks every 1? 2 hours. This is important to improve blood flow and breathing. Ask for help if you feel weak or unsteady. ? ? Do not lift anything that is heavier than 10 lb (4.5 kg), or the limit that you are told, until your health care provider says that it is safe. ? ? Do exercises as told by your health care provider. ? ? Do not take baths, swim, or use a hot tub until your health care provider approves. Ask your health care provider if you may take showers. You may only be allowed to take sponge baths. ? ? Return to your normal activities as told by your health care provider. Ask your health care provider what activities are safe for you. General instructions ? ? Do not use any products that contain nicotine or tobacco, such as cigarettes, e-cigarettes, and chewing tobacco. These can delay bone healing. If you need help quitting, ask your health care provider. ? ? Keep all follow-up visits. This is important. Follow-up visits include visits for physical therapy. Contact a health care provider if you have: ? ? A fever. ? ? Redness, swelling, or more pain around your incision. ? ? Fluid or blood coming from your incision. ? ? Pus or a bad smell coming from your incision. ? ? Pain that is not controlled by your pain medicine. ? ? Increasing hoarseness or trouble swallowing. Get help right away if you have: ? ? Severe pain. ? ? Sudden numbness or weakness in your arms. ? ? Warmth, tenderness, or swelling in your calf. ? ? Chest pain. ? ? Difficulty breathing. These symptoms may represent a serious problem that is an emergency. Do not wait to see if the symptoms will go away. Get medical help right away. Call your local emergency services (911 in the [place] Do not drive yourself to the hospital. Summary ? ? After the procedure, it is common to have neck pain, discomfort when swallowing, and slight hoarseness. ? ? Follow instructions from your health care provider about how to take care of your incision. ? ? Check your incision area every day for signs of infection. ? ? Return to your normal activities as told by your health care provider. Ask your health care provider what activities are safe for you. ? ? Contact a health care provider if you have signs of infection at your incision. This information is not intended to replace advice given to you by your health care provider. Make sure you discuss any questions you have with your health care provider. Document Revised: 09/08/2020 Document Reviewed: 09/08/2020 [employer] Patient Education ?? 2021 [employer] Pharmacology General Anesthesia, Adult, Care After This sheet gives you information about how to care for yourself after your procedure. Your health care provider may also give you more specific instructions. If you have problems or questions, contact your health care provider. What can I expect after the procedure? After the procedure, the following side effects are common: ? ? Pain or discomfort at the IV site. ? ? Nausea. ? ? Vomiting. ? ? Sore throat. ? ? Trouble concentrating. ? ? Feeling cold or chills. ? ? Feeling weak or tired. ? ? Sleepiness and fatigue. ? ? Soreness and body aches. These side effects can affect parts of the body that were not involved in surgery. Follow these instructions at home: For the time period you were told by your health care provider: ? ? Rest. ? ? Do not participate in activities where you could fall or become injured. ? ? Do not drive or use machinery. ? ? Do not drink alcohol. ? ? Do not take sleeping pills or medicines that cause drowsiness. ? ? Do not make important decisions or sign legal documents. ? ? Do not take care of children on your own. Eating and drinking ? ? Follow any instructions from your health care provider about eating or drinking restrictions. ? ? When you feel hungry, start by eating small amounts of foods that are soft and easy to digest (bland), such as toast. Gradually return to your regular diet. ? ? Drink enough fluid to keep your urine pale yellow. ? ? If you vomit, rehydrate by drinking water, juice, or clear broth. General instructions ? ? If you have sleep apnea, surgery and certain medicines can increase your risk for breathing problems. Follow instructions from your health care provider about wearing your sleep device: ? ? Anytime you are sleeping, including during daytime naps. ? ? While taking prescription pain medicines, sleeping medicines, or medicines that make you drowsy. ? ? Have a responsible adult stay with you for the time you are told. It is important to have someone help care for you until you are awake and alert. ? ? Return to your normal activities as told by your health care provider. Ask your health care provider what activities are safe for you. ? ? Take clee-unk-iwvkhbx and prescription medicines only as told by your health care provider. ? ? If you smoke, do not smoke without supervision. ? ? Keep all follow-up visits as told by your health care provider. This is important. Contact a health care provider if: ? ? You have nausea or vomiting that does not get better with medicine. ? ? You cannot eat or drink without vomiting. ? ? You have pain that does not get better with medicine. ? ? You are unable to pass urine. ? ? You develop a skin rash. ? ? You have a fever. ? ? You have redness around your IV site that gets worse. Get help right away if: ? ? You have difficulty breathing. ? ? You have chest pain. ? ? You have blood in your urine or stool, or you vomit blood. Summary ? ? After the procedure, it is common to have a sore throat or nausea. It is also common to feel tired. ? ? Have a responsible adult stay with you for the time you are told. It is important to have someone help care for you until you are awake and alert. ? ? When you feel hungry, start by eating small amounts of foods that are soft and easy to digest (bland), such as toast. Gradually return to your regular diet. ? ? Drink enough fluid to keep your urine pale yellow. ? ? Return to your normal activities as told by your health care provider. Ask your health care provider what activities are safe for you. This information is not intended to replace advice given to you by your health care provider. Make sure you discuss any questions you have with your health care provider. Document Revised: 02/03/2021 Document Reviewed: 09/02/2020 [employer] Patient Education ?? 2021 [employer]. Pulmonary Medicine How to Use an Incentive Spirometer An incentive spirometer is a tool that measures how well you are filling your lungs with each breath. Learning to take long, deep breaths using this tool can help you keep your lungs clear and active. This may help to reverse or lessen your chance of developing breathing (pulmonary) problems, especially infection. You may be asked to use a spirometer: ? ? After a surgery. ? ? If you have a lung problem or a history of smoking. ? ? After a long period of time when you have been unable to move or be active. If the spirometer includes an indicator to show the highest number that you have reached, your health care provider or respiratory therapist will help you set a goal. Keep a log of your progress as told by your health care provider. What are the risks? ? ? Breathing too quickly may cause dizziness or cause you to pass out. Take your time so you do not get dizzy or light-headed. ? ? If you are in pain, you may need to take pain medicine before doing incentive spirometry. It is harder to take a deep breath if you are having pain. How to use your incentive spirometer 1. Sit up on the edge of your bed or on a chair. 2. Hold the incentive spirometer so that it is in an upright position. 3. Before you use the spirometer, breathe out normally. 4. Place the mouthpiece in your mouth. Make sure your lips are closed tightly around it. 5. Breathe in slowly and as deeply as you can through your mouth, causing the piston or the ball to rise toward the top of the chamber. 6. Hold your breath for 3? 5 seconds, or for as long as possible. ? ? If the spirometer includes a college sports coach indicator, use this to guide you in breathing. Slow down your breathing if the indicator goes above the marked areas. 7. Remove the mouthpiece from your mouth and breathe out normally. The piston or ball will return to the bottom of the chamber. 8. Rest for a few seconds, then repeat the steps 10 or more times. ? ? Take your time and take a few normal breaths between deep breaths so that you do not get dizzy or light-headed. ? ? Do this every 1? 2 hours when you are awake. 9. If the spirometer includes a goal marker to show the highest number you have reached (best effort), use this as a goal to work toward during each repetition. 10. After each set of 10 deep breaths, cough a few times. This will help to make sure that your lungs are clear. ? ? If you have an incision on your chest or abdomen from surgery, place a pillow or a rolled-up towel firmly against the incision when you cough. This can help to reduce pain while taking deep breaths and coughing. General tips ? ? When you are able to get out of bed: ? ? Walk around often. ? ? Continue to take deep breaths and cough in order to clear your lungs. ? ? Keep using the incentive spirometer until your health care provider says it is okay to stop using it. If you have been in the hospital, you may be told to keep using the spirometer at home. Contact a health care provider if: ? ? You are having difficulty using the spirometer. ? ? You have trouble using the spirometer as often as instructed. ? ? Your pain medicine is not giving enough relief for you to use the spirometer as told. ? ? You have a fever. Get help right away if: ? ? You develop shortness of breath. ? ? You develop a cough with bloody mucus from the lungs. ? ? You have fluid or blood coming from an incision site after you cough. Summary ? ? An incentive spirometer is a tool that can help you learn to take long, deep breaths to keep your lungs clear and active. ? ? You may be asked to use a spirometer after a surgery, if you have a lung problem or a history of smoking, or if you have been inactive for a long period of time. ? ? Use your incentive spirometer as instructed every 1? 2 hours while you are awake. ? ? If you have an incision on your chest or abdomen, place a pillow or a rolled-up towel firmly against your incision when you cough. This will help to reduce pain. ? ? Get help right away if you have shortness of breath, you cough up bloody mucus, or blood comes from your incision when you cough. This information is not intended to replace advice given to you by your health care provider. Make sure you discuss any questions you have with your health care provider. Document Revised: 08/09/2020 Document Reviewed: 08/09/2020 [employer] Patient Education ?? 2021 [employer] Future Appointments Appointment Date:08/07/2022 12:15:00 PM Scheduled Provider: Location:[facility] Procedure Appointment Type:Rad Appointment Date:08/07/2022 12:30:00 PM Scheduled Provider:Ernie Flowers MD Location:[facility] Appointment Type:Post-Op Appointment Date:09/14/2022 10:00:00 AM Scheduled Provider:Lois Bran MD Location:[facility] Appointment Type:Established Patient Future Scheduled Tests [...] Other : late entry 3[place] 5[place] Medications acetaminophen 325 mg oral tablet 975 mg, By mouth, QID, # 84 tab, Refill(s) 0, Pharmacy: [facility], [id number], TAB, 975 mg By mouth QID, 73.2, 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, kg, 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 Start Date: 07/11/22 Status: Ordered celecoxib 200 mg oral capsule 200 mg = 1 cap, By mouth, BID, # 14 cap, Refill(s) 0, Pharmacy: [facility], [id number], CAP, 1 cap By mouth BID, 73.2, 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, kg, 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 Start Date: 07/11/22 Status: Ordered Colace 100 mg oral capsule 100 mg = 1 cap, By mouth, BID, PRN for constipation, # 28 cap, Refill(s) 0, Pharmacy: [facility], [id number], 1 cap By mouth BID,x14 Days,PRN:for constipation, 73.2, 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 Start Date: 07/11/22 Stop Date: 07/17/22 Status: Ordered Multivitamin 1 tab, By mouth, Daily, Last Dose 06.26.22, Refill(s) 0 Start Date: 08/20/17 Status: Ordered omeprazole 20 mg, By mouth, Daily, 0, 12/02/21 8:58:00 CDT, Substitution Permitted Start Date: 12/02/21 Status: Ordered oxyCODONE 5 mg oral tablet 5 mg, = 1 tab, By mouth, Q6H, PRN as needed for pain, 28 tab, 0, 0, Substitution Permitted, 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.] recent to oldest [Reference Range]: 1 2 Blood Pressure 136/75mmHg (07/11/22 1:13 PM) Blood Pressure 132/71 (07/11/22 12:15 PM) 127/75 (07/11/22 11:49 AM) Height (inches) (Clinical) 66 in (07/11/22 6:17 AM) Weight (kg) (Clinical) 73.2 kg (07/11/22 6:17 AM) BMI (Clinical) 26 kg/m2 (07/11/22 6:17 AM) Social History Social History Type Response [...] Code MRI Safety Implantable Status Assigning Authority [id number] Unknown Unknown 03/17/24 Unknown Unknown Active GS1 [id number] Unknown Unknown 03/17/24 Unknown Unknown Active GS1 Unknown Unknown [id number] Unknown 03/09/27 Unknown Unknown Active Unknown Unknown Unknown [id number] Unknown 12/15/26 Unknown Unknown Active Unknown Unknown Unknown Unknown Unknown Unknown Unknown Unknown Active Unk nown Unknown Unknown Unknown Unknown Unknown Unknown Unknown Active Unk nown Hospital Discharge Instructions Patient Education 07/11/2022 10:51:07 Form - Surgical Drain Record Surgical Drain Record Empty your surgical drain as told by your health care provider. Use this form to write down the amount of fluid that has collected in the drainage container. Bring this form with you to your follow-up visits. Surgical drain #1 location: Date Time Amount Date Time Amount Date Time Amount Date Time Amount Date Time Amount Date Time Amount Date Time Amount Date Time Amount Date Time Amount Date Time Amount Date Time Amount Date Time Amount Date Time Amount Date Time Amount Date Time Amount Date Time Amount Date Time Amount Date Time Amount Date Time Amount Date Time Amount Date Time Amount Date Time Amount Date Time Amount Date Time Amount Date Time Amount Date Time Amount Date Time Amount Date Time Amount This information is not intended to replace advice given to you by your health care provider. Make sure you discuss any questions you have with your health care provider. Document Revised: 07/18/2021 Document Reviewed: 07/18/2021 [employer] Patient Education ?? 2021 [employer]. 07/11/2022 10:51:07 Surgical Drain Home Care Surgical Drain Home Care Surgical drains are used to remove extra fluid that normally builds up in a surgical wound after surgery. A surgical drain helps to heal a surgical wound. Different kinds of surgical drains include: ??? Active drains. These drains use suction to pull drainage away from the surgical wound. Drainageflows through a tube to a container outside of the body. With these drains, you need to keep the bulb or the drainage container flat (compressed) at all times, except while you empty it. Flattening the bulb or container creates suction. ??? Passive drains. These drains allow fluid to drain naturally, by gravity. Drainage flows througha tube to a bandage (dressing) or a container outside of the body. Passive drains do not need to beemptied. A drain is placed during surgery. Right after surgery, drainage is usually bright red and a little thicker than water. The drainage may gradually turn yellow or pink and become thinner. It is likely that your health care provider will remove the drain when the drainage stops or when the amount decreases to 1???2 Tbsp (15???30 mL) during a 24-hour period. Supplies needed: ??? Tape. ??? Germ-free cleaning solution (sterile saline). ??? Cotton swabs. ??? Split gauze drain sponge: 4 x 4 inches (10 x 10 cm). ??? Gauze square: 4 x 4 inches (10 x 10 cm). How to care for your surgical drain Care for your drain as told by your health care provider. This is important to help prevent infection. If your drain is placed at your back, or any other kpal-jj-hqwnr area, ask another person to assist you in performing the following tasks: General care ??? Keep the skin around the drain dry and covered with a dressing at all times. ??? Check your drain area every day for signs of infection. Check for: ??? Redness, swelling, or pain. ??? Pus or a bad smell. ??? Cloudy drainage. ??? Tenderness or pressure at the drain exit site. Changing the dressing Follow instructions from your health care provider about how to change your dressing. Change your dressing at least once a day. Change it more often if needed to keep the dressing dry. Make sure you: 1. Gather your supplies. 2. Wash your hands with soap and water before you change your dressing. If soap and water are not available, use hand rd project manager. 3. Remove the old dressing. Avoid using scissors to do that. 4. Wash your hands with soap and water again after removing the old dressing. 5. Use sterile saline to clean your skin around the drain. You may need to use a cotton swab to clean the skin. 6. Place the tube through the slit in a drain sponge. Place the drain sponge so that it covers yourwound. 7. Place the gauze square or another drain sponge on top of the drain sponge that is on the wound. Make sure the tube is between those layers. 8. Tape the dressing to your skin. 9. Tape the drainage tube to your skin 1???2 inches (2.5???5 cm) below the place where the tube enters your body. Taping keeps the tube from pulling on any stitches (sutures) that you have. 10. Wash your hands with soap and water. 11. Write down the color of your drainage and how often you change your dressing. How to empty your active drain 1. Make sure that you have a measuring cup that you can empty your drainage into. 2. Wash your hands with soap and water. If soap and water are not available, use hand rd project manager. 3. Loosen any pins or clips that hold the tube in place. 4. If your health care provider tells you to strip the tube to prevent clots and tube blockages: ??? Hold the tube at the skin with one hand. Use your other hand to pinch the tubing with your thumb and first finger. ??? Gently move your fingers down the tube while squeezing very lightly. This clears any drainage, clots, or tissue from the tube. ??? You may need to do this several times each day to keep the tube clear. Do not pull on the tube. 5. Open the bulb cap or the drain plug. Do not touch the inside of the cap or the bottom of the plug. 6. Turn the device upside down and gently squeeze. 7. Empty all of the drainage into the measuring cup. 8. Compress the bulb or the container and replace the cap or the plug. To compress the bulb or the container, squeeze it firmly in the middle while you close the cap or plug the container. 9. Write down the amount of drainage that you have in each 24-hour period. If you have less than 2 Tbsp (30 mL) of drainage during 24 hours, contact your health care provider. 10. Flush the drainage down the toilet. 11. Wash your hands with soap and water. Contact a health care provider if: ??? You have redness, swelling, or pain around your drain area. ??? You have pus or a bad smell coming from your drain area. ??? You have a fever or chills. ??? The skin around your drain is warm to the touch. ??? The amount of drainage that you have is increasing instead of decreasing. ??? You have drainage that is cloudy. ??? There is a sudden stop or a sudden decrease in the amount of drainage that you have. ??? Your drain tube falls out. ??? Your active drain does not stay compressed after you empty it. Summary ??? Surgical drains are used to remove extra fluid that normally builds up in a surgical wound after surgery. ??? Different kinds of surgical drains include active drains and passive drains. Active drains use suction to pull drainage away from the surgical wound, and passive drains allow fluid to drain naturally. ??? It is important to care for your drain to prevent infection. If your drain is placed at your back, or any other dgov-ml-egbtq area, ask another person to assist you. ??? Contact your health care provider if you have redness, swelling, or pain around your drain area. This information is not intended to replace advice given to you by your health care provider. Make sure you discuss any questions you have with your health care provider. Document Revised: 06/25/2019 Document Reviewed: 06/25/2019 [employer] Patient Education ?? 2021 [employer]. 07/11/2022 10:51:07 How to Use an Incentive Spirometer How to Use an Incentive Spirometer An incentive spirometer is a tool that measures how well you are filling your lungs with each breath. Learning to take long, deep breaths using this tool can help you keep your lungs clear and active. This may help to reverse or lessen your chance of developing breathing (pulmonary) problems, especially infection. You may be asked to use a spirometer: ??? After a surgery. ??? If you have a lung problem or a history of smoking. ??? After a long period of time when you have been unable to move or be active. If the spirometer includes an indicator to show the highest number that you have reached, your health care provider or respiratory therapist will help you set a goal. Keep a log of your progress as told by your health care provider. What are the risks? Breathing too quickly may cause dizziness or cause you to pass out. Take your time so you do not get dizzy or light-headed. ??? If you are in pain, you may need to take pain medicine before doing incentive spirometry. It isharder to take a deep breath if you are having pain. How to use your incentive spirometer 1. Sit up on the edge of your bed or on a chair. 2. Hold the incentive spirometer so that it is in an upright position. 3. Before you use the spirometer, breathe out normally. 4. Place the mouthpiece in your mouth. Make sure your lips are closed tightly around it. 5. Breathe in slowly and as deeply as you can through your mouth, causing the piston or the ball torise toward the top of the chamber. 6. Hold your breath for 3???5 seconds, or for as long as possible. ??? If the spirometer includes a college sports coach indicator, use this to guide you in breathing. Slow down your breathing if the indicator goes above the marked areas. 7. Remove the mouthpiece from your mouth and breathe out normally. The piston or ball will return to the bottom of the chamber. 8. Rest for a few seconds, then repeat the steps 10 or more times. ??? Take your time and take a few normal breaths between deep breaths so that you do not get dizzy or light-headed. ??? Do this every 1???2 hours when you are awake. 9. If the spirometer includes a goal marker to show the highest number you have reached (best effort), use this as a goal to work toward during each repetition. 10. After each set of 10 deep breaths, cough a few times. This will help to make sure that your lungs are clear. ??? If you have an incision on your chest or abdomen from surgery, place a pillow or a rolled-up towel firmly against the incision when you cough. This can help to reduce pain while taking deep breaths and coughing. General tips ??? When you are able to get out of bed: ??? Walk around often. ??? Continue to take deep breaths and cough in order to clear your lungs. ??? Keep using the incentive spirometer until your health care provider says it is okay to stop using it. If you have been in the hospital, you may be told to keep using the spirometer at home. Contact a health care provider if: ??? You are having difficulty using the spirometer. ??? You have trouble using the spirometer as often as instructed. ??? Your pain medicine is not giving enough relief for you to use the spirometer as told. ??? You have a fever. Get help right away if: ??? You develop shortness of breath. ??? You develop a cough with bloody mucus from the lungs. ??? You have fluid or blood coming from an incision site after you cough. Summary ??? An incentive spirometer is a tool that can help you learn to take long, deep breaths to keep your lungs clear and active. ??? You may be asked to use a spirometer after a surgery, if you have a lung problem or a history of smoking, or if you have been inactive for a long period of time. ??? Use your incentive spirometer as instructed every 1???2 hours while you are awake. ??? If you have an incision on your chest or abdomen, place a pillow or a rolled-up towel firmly against your incision when you cough. This will help to reduce pain. ??? Get help right away if you have shortness of breath, you cough up bloody mucus, or blood comes from your incision when you cough. This information is not intended to replace advice given to you by your health care provider. Make sure you discuss any questions you have with your health care provider. Document Revised: 08/09/2020 Document Reviewed: 08/09/2020 [employer] Patient Education ?? 2021 [employer]. 07/11/2022 10:51:07 How to Prevent Constipation After Surgery How [...] bowel movement. ??? Having hard, dry, or htvwsg-chht-tullwg stools (feces). ??? Discomfort in the lower [...] as fried or sweet foods. These include portuguese fries, hamburgers, cookies, and candy. ??? Take [...] you use the restroom. Medicines ??? Take jwdd-ktl-uqscybm and prescription medicines only as told by [...] provider. Document Revised: 04/07/2020 Document Reviewed: 04/07/2020 [employer] Patient Education ?? 2021 [employer]. 07/11/2022 10:51:07 General Anesthesia, Adult, Care After General Anesthesia, Adult, Care After This sheet gives you information about how to care for yourself after your procedure. Your health care provider may also give you more specific instructions. If you have problems or questions, contact your health care provider. What can I expect after the procedure? After the procedure, the following side effects are common: ??? Pain or discomfort at the IV site. ??? Nausea. ??? Vomiting. ??? Sore throat. ??? Trouble concentrating. ??? Feeling cold or chills. ??? Feeling weak or tired. ??? Sleepiness and fatigue. ??? Soreness and body aches. These side effects can affect parts of the body that were not involvedin surgery. Follow these instructions at home: For the time period you were told by your health care provider: ??? Rest. ??? Do not participate in activities where you could fall or become injured. ??? Do not drive or use machinery. ??? Do not drink alcohol. ??? Do not take sleeping pills or medicines that cause drowsiness. ??? Do not make important decisions or sign legal documents. ??? Do not take care of children on your own. Eating and drinking ??? Follow any instructions from your health care provider about eating or drinking restrictions. ??? When you feel hungry, start by eating small amounts of foods that are soft and easy to digest (bland), such as toast. Gradually return to your regular diet. ??? Drink enough fluid to keep your urine pale yellow. ??? If you vomit, rehydrate by drinking water, juice, or clear broth. General instructions ??? If you have sleep apnea, surgery and certain medicines can increase your risk for breathing problems. Follow instructions from your health care provider about wearing your sleep device: ??? Anytime you are sleeping, including during daytime naps. ??? While taking prescription pain medicines, sleeping medicines, or medicines that make you drowsy. ??? Have a responsible adult stay with you for the time you are told. It is important to have someone help care for you until you are awake and alert. ??? Return to your normal activities as told by your health care provider. Ask your health care provider what activities are safe for you. ??? Take qiah-hrv-awzgdzu and prescription medicines only as told by your health care provider. ??? If you smoke, do not smoke without supervision. ??? Keep all follow-up visits as told by your health care provider. This is important. Contact a health care provider if: ??? You have nausea or vomiting that does not get better with medicine. ??? You cannot eat or drink without vomiting. ??? You have pain that does not get better with medicine. ??? You are unable to pass urine. ??? You develop a skin rash. ??? You have a fever. ??? You have redness around your IV site that gets worse. Get help right away if: ??? You have difficulty breathing. ??? You have chest pain. ??? You have blood in your urine or stool, or you vomit blood. Summary ??? After the procedure, it is common to have a sore throat or nausea. It is also common to feel tired. ??? Have a responsible adult stay with you for the time you are told. It is important to have someone help care for you until you are awake and alert. ??? When you feel hungry, start by eating small amounts of foods that are soft and easy to digest (bland), such as toast. Gradually return to your regular diet. ??? Drink enough fluid to keep your urine pale yellow. ??? Return to your normal activities as told by your health care provider. Ask your health care provider what activities are safe for you. This information is not intended to replace advice given to you by your health care provider. Make sure you discuss any questions you have with your health care provider. Document Revised: 02/03/2021 Document Reviewed: 09/02/2020 [employer] Patient Education ?? 2021 [employer]. 07/11/2022 10:51:07 Anterior Cervical Diskectomy and Fusion, Care After Anterior Cervical Diskectomy and Fusion, Care After This sheet gives you information about how to care for yourself after your procedure. Your health care provider may also give you more specific instructions. If you have problems or questions, contact your health care provider. What can I expect after the procedure? After the procedure, it is common to have: ??? Neck pain. ??? Discomfort when swallowing. ??? Slight hoarseness. Follow these instructions at home: Medicines ??? Take zqsw-hur-tndocdx and prescription medicines only as told by your health care provider. ??? If you were prescribed an antibiotic medicine, take it or use it as told by your health care provider. Do not stop using the antibiotic even if you start to feel better. ??? Ask your health care provider if the medicine prescribed to you: ??? Requires you to avoid driving or using heavy machinery. ??? Can cause constipation. You may need to take actions to prevent or treat constipation, such as: ??? Drink enough fluid to keep your urine pale yellow. ??? Take mqpd-eyb-bbblqcd or prescription medicines. ??? Eat foods that are high in fiber, such as beans, whole grains, and fresh fruits and vegetables. ??? Limit foods that are high in fat and processed sugars, such as fried and sweet foods. ??? If you are taking blood thinners: ??? Talk with your health care provider before you take any medicines that contain aspirin or NSAIDs, such as ibuprofen. These medicines increase your risk for dangerous bleeding. ??? Take your medicine exactly as told, at the same time every day. ??? Avoid activities that could cause injury or bruising, and follow instructions about how to prevent falls. ??? Wear a medical alert bracelet or carry a card that lists what medicines you take. If you have a neck brace: ??? Wear the brace as told by your health care provider. Remove it only as told by your health careprovider. ??? Loosen the brace if your arms/fingers tingle, become numb, or turn cold and blue. ??? Keep the brace clean. ??? If the brace is not waterproof: ??? Do not let it get wet. ??? Cover it with a watertight covering when you take a bath or shower. Incision care ??? Follow instructions from your health care provider about how to take care of your incision. Make sure you: ??? Wash your hands with soap and water for at least 20 seconds before and after you change your bandage (dressing). If soap and water are not available, use hand rd project manager. ??? Change your dressing as told by your health care provider. ??? Leave stitches (sutures), skin glue, or adhesive strips in place. These skin closures may need to stay in place for 2 weeks or longer. If adhesive strip edges start to loosen and curl up, you maytrim the loose edges. Do not remove adhesive strips completely unless your health care provider tells you to do that. ??? Check your incision area every day for signs of infection. Check for: ??? Redness, swelling, or more pain. ??? Fluid or blood. ??? Warmth. ??? Pus or a bad smell. Managing pain, stiffness, and swelling If directed, put ice on the injured area. ??? If you have a removable brace, remove it as told by your health care provider. ??? Put ice in a plastic bag. ??? Place a towel between your skin and the bag. ??? Leave the ice on for 20 minutes, 2???3 times a day. ??? Remove the ice if your skin turns bright red. This is very important. If you cannot feel pain, heat, or cold, you have a greater risk of damage to the area. Activity ??? Rest as told by your health care provider. ??? Avoid sitting for a long time without moving. Get up to take short walks every 1???2 hours. This is important to improve blood flow and breathing. Ask for help if you feel weak or unsteady. ??? Do not lift anything that is heavier than 10 lb (4.5 kg), or the limit that you are told, untilyour health care provider says that it is safe. ??? Do exercises as told by your health care provider. ??? Do not take baths, swim, or use a hot tub until your health care provider approves. Ask your health care provider if you may take showers. You may only be allowed to take sponge baths. ??? Return to your normal activities as told by your health care provider. Ask your health care provider what activities are safe for you. General instructions ??? Do not use any products that contain nicotine or tobacco, such as cigarettes, e-cigarettes, andchewing tobacco. These can delay bone healing. If you need help quitting, ask your health care provider. ??? Keep all follow-up visits. This is important. Follow-up visits include visits for physical therapy. Contact a health care provider if you have: ??? A fever. ??? Redness, swelling, or more pain around your incision. ??? Fluid or blood coming from your incision. ??? Pus or a bad smell coming from your incision. ??? Pain that is not controlled by your pain medicine. ??? Increasing hoarseness or trouble swallowing. Get help right away if you have: ??? Severe pain. ??? Sudden numbness or weakness in your arms. ??? Warmth, tenderness, or swelling in your calf. ??? Chest pain. ??? Difficulty breathing. These symptoms may represent a serious problem that is an emergency. Do not wait to see if the symptoms will go away. Get medical help right away. Call your local emergency services (911 in the [place] Do not drive yourself to the hospital. Summary ??? After the procedure, it is common to have neck pain, discomfort when swallowing, and slight hoarseness. ??? Follow instructions from your health care provider about how to take care of your incision. ??? Check your incision area every day for signs of infection. ??? Return to your normal activities as told by your health care provider. Ask your health care provider what activities are safe for you. ??? Contact a health care provider if you have signs of infection at your incision. This information is not intended to replace advice given to you by your health care provider. Make sure you discuss any questions you have with your health care provider. Document Revised: 09/08/2020 Document Reviewed: 09/08/2020 Elsevier Patient Education ?? 2021 [employer] Follow Up Care 06/29/2022 14:05:26 With:Ernie Flowers Address: [address] [place] [address] [address] [place] [address] Business (1) When:08/07/2022 08:21:28 Comments:Post-Surgical appointment: August 07 @ 12:30pm at [facility]- please check in at the [facility] Entrance 45 minutes prior for x-ray. Come to office 07/12 for drain removalYou may shower starting tomorrow. Do not submerge surgical site in waterNo creams ointments or lotions to incision Surgical operation note * Ernie Flowers MD: PERFORM, SIGN, VERIFY Event Display: Operative Report Authored Date: [id number] Patient: MATHEUS PHELPS Age: 76 years Sex: Female : 1945 Associated Diagnoses: None Author: Ernie Flowers MD Date of Surgery: 07/11/22 Preoperative Diagnosis: 1. Multilevel cervical degenerative disc disease with spondylosis 2. C5-6, C6-7 herniated disc with radiculopathy with numbness Postoperative Diagnosis: Same as preoperative diagnosis Surgeon: Ernie Flowers MD Residential Real Estate Agent: JADA Barreto (assisted and participated in all aspects of the operative procedure) Anesthesia: General Name of the Procedure: 1. C5-6, C6-7 anterior cervical discectomy for decompression of spinal cord and nerve roots 2. Placement of C5-6, C6-7 anterior interbody cage with for arthrodesis 3. C5-6, C6-7 anterior instrumentation with Medtronic plate 4. Harvesting of autograft from same incision from osteophytes and vertebral bodies and combinationwith allograft for utilization towards anterior arthrodesis at C5-6, C6-7. 5. Utilization of intraoperative microscopy for performing discectomies, and decompression of spinal cord and nerves 6. Utilization of intraoperative fluoroscopy for localization of level, placement of instrumentation and confirmation instrumentation placement 7. Utilization of intraoperative neuro monitoring for SSEP and EMG. Indications for Procedure: This patient presented with progressive worsening of upper extremity radiculopathy and numbness. Examination corroborated the findings. Preoperative MR imaging demonstratedevidence of multilevel cervical degenerative disease, endplate changes, loss of disc height with associated nerve root compression. The decision was made to proceed with surgical management after they failed conservative treatment options. The risks include bleeding, infection, spinal fluid leak, neurological injury including weakness, numbness, paralysis, urinary/bowel dysfunction, instrumentation malposition failure, failure of fusion, need for further surgery, speech difficulties/hoarseness,swallowing/esophageal injury, vascular injury, stroke are all discussed in detail. Patient consented for surgical management and informed consent was signed. Description of Procedure: Patient was brought to the operating room and a universal timeout was performed. Sequential compression devices were applied and preoperative antibiotics were provided. General endotracheal anesthesia was induced by the anesthesiologist. The patient was secured to the operative table after all extremities were appropriately padded. Neuro monitoring electrodes were placed. Intraoperative fluoroscopy was utilized to localize the level of interest and plan the incision. The proposed incision site was marked. The surgical field was prepped and draped in the usual fashion. About 5 mL of local anesthetics was infiltrated into the incision line. Utilizing a number 10 scalpel, and incision was created and carried down to the subcutaneous tissue. Monopolar and bipolar cautery utilized for hemostasis as well as dissection. The subcutaneous tissues dissected and the platysma elevated and cut. With blunt dissection the medial aspect of the carotid was identified and dissection was continued posteriorly until vertebral bodies were identified. Cloward retractors were utilized to retract the esophagus, trachea and vasculature. A localizing pin was placed in the disc space and intraoperative fluoroscopy confirmed the level to be at the level of interest at C5-6, C6-7. Self-retaining retractors were then applied. The longus coli was split at the midline and dissectedaway laterally towards the edges of the vertebral body. Intraoperative microscopy was utilized for the remainder of the procedure - performing the discectomy and placement of instrumentation. Osteophytes were removed and the autograft bone was harvested for arthrodesis at a later point in the procedure. The disc spaces were cut. Degenerative disc material was delivered through these disc spaces with assistance of curettes, Kerrisons, pituitaries and a high-speed drill. Hypertrophic osteophytes were removed with Leksell rongeurs, Kerrison punches and high-speed drill. The posterior longitudinal ligament was identified, elevated and cut. Decompression of the spinal cord was performed utilizing Kerrison punches and carried out laterally to decompress the neural foramen bilaterally. The sequence of events was performed at each level. There was significant ossification of the anterior and posterior ligaments as well as the foramen that made it performing the discectomies significantly moredifficult and time consuming. Once the disc spaces were adequately prepared, a trial was utilized to assess the size of the cage and appropriately utilized. The cage was packed with allograft putty mixed with osteophyte and vertebral body autograft harvested from same incision. Fluoroscopy confirmed the cage to be in acceptableposition. The entire length of anterior cervical construct was then assessed for size and a plate was selected for implantation. Self drilling screws were then placed in the standard fashion to secure the plate and these were locked in place. Fluoroscopy confirmed the postoperative final image to be good with all hardware and instrumentation in appropriate position. The incision was copiously irrigated and hemostasis was obtained with monopolar and bipolar cauteryas well as Gelfoam paste. A drain was left in place and externalized away from the primary incision. The platysma was approximated with 3-0 Vicryls in interrupted fashion, subcutaneous tissue with 3-0 Vicryl's and fashion and skin closed with Dermabond. Patient was extubated by the anesthesiologistwithout apparent complication and transferred to the PACU in stable condition. The patient remainedneurologically stable when compared to preoperative examination and there were no neuromonitoring changes throughout the procedure. Estimated Blood Loss: 30 ml Findings: degenerative disc disease at C5-6, C6-7 with nerve root compression Specimens: None Complications: None Counts: Correct Electronically signed by:Ernie Flowers MD 07/11/22 09:53 Patient Care team information Care Team Personnel Name: Yina MO, Lois Cunningham Position: Physician - Family Practice Member Role: Primary Care Physician Address: Address: [address] [place] [address]- Care Team Related Persons Name: MAYELA PHELPS JR Address: [address] [address] [address] [place] [id number] [facility] Address: mailing [address] [facility] [place] [phone] [facility]
--- OUTSIDE RECORDS SUMMARY | 2023-01-05 09:02 | XMS_ITS | Patient Health Record ---
Author Name Unknown Organization [facility] Address [address] [place], [place] [id number] Care Team Providers Care Head Of Data Name Role Phone Yina MO, Lois Primary Care Provider Rigo Baum MD, Luis Alfredo Unavailable [phone] Don Wells MD Unavailable ALLERGIES Allergen (clinical drug ingredient) Drug/Non Drug Allergy documented on EMR Reaction Allergy Type Onset Date Status cortisone muscles in legs jump, cramps Drug Allergy Active REASON FOR REFERRAL No Information MEDICATIONS Medication SIG (Take, Route, Fr equency, Duration) Notes Start Date End Date Status pantoprazole 40 mg 1 tab orally once a day Active meloxicam 15 mg 1 tab po orally Q24H prn pain; take with food Active SOCIAL HISTORY Tobacco Use: Social History Observation Description Date Details (start date - stop date) Former Smoker NA - NA Sex Assigned At : Social History Observation Description Sex Assigned At Unknown alcohol Question Answer Notes Did you have a drink containing alcohol in the p ast year? No Points 0 Interpretation Negative Tobacco use: Question Answer Notes : former smoker How long has it been since you last smoked? > 10 years PROBLEMS Problem Type ICD Code Onset Dates Problem Status W/U Status Risk SNOMED Code Notes Problem Sacroiliitis, not elsewhere classified (M46.1) Active confirmed Solitary sacroiliitis (050245934) Problem Low back pain (M54.5) Active confirmed Low back pain (858637614) Problem Spondylosis without myelopathy or radiculopathy, lumbar region (M47.816) Active confirmed Lumbosacral spondylosis without myelopathy (76802365) Problem custodial (current) use of opiate analgesic (Z79.891) Active confirmed High risk drug monitoring status (798321915) Problem Other specified anxiety disorders (F41.8) Active confirmed Anxiety disorde r (998613828) Problem Obstructive sleep apnea (adult) (pediatric) (G47.33) Active confirmed Obstructive sle ep apnea syndrome (87807585) Problem Other sleep disorders (G47.8) Active confirmed Sleep disorder (36486389) Problem 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) Active confirmed Atypical facial pain (55745046) Problem Spondylolisthesi s, lumbar region (M43.16) Active confirmed Acquired spondylolisthesis (157921050) Problem Cervical disc disorder with radiculopathy, unspecified cervical region (M50.10) Active confirmed Cervical radiculopathy (27163266) Problem Cervicalgia (M54.2) Active confirmed Cervicalgia (56560782) Problem 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) Active confirmed Long-term curre nt use of drug therapy (274107369) Problem Vertebrogenic low back pain (M54.51) Active confirmed Pain in lumbar spine (039740449) PLAN OF TREATMENT No Information Insurance Providers Payer Name Payer Address Payer Phone Subscriber Number Group Number Insured Name Patient Relationship to Insured Coverage Start Date Coverage End Date [facility] [employer] [address] [place] [phone] [id number] May Santana Self - patient is the insured MEDICAL (GENERAL) HISTORY Medical History History ICD Code Atypical facial pain, right Neck pain Right SI joint pain Arthritis Hypercholesterolemia Major traumatic injury (2004) / fall fro m horse Type II SLAP lesion, left Pain in joint of bilateral shoulder Mild anterior wedging L3 and L4 as per p wilbur films report Hearing loss Sleep apnea Surgical History Surgery Date(Month/Year) Appendectomy, performed [place], [place], 54 delivery, performed in [place], [place], 1973 Hysterectomy, complete, performed in [place], [place], 1989 Abdominal surgery (horse accident), perf ormed in [place], [place], 2004 Left shoulder repair, labral , performed at [facility] by Dr. Oscar Meier, 11/2017 Cholecystectomy, performed at [facility], 2019 Hospitalization History Reason Date(Month/Year) Child
[2023-01-10 12:55] VITALS: BP 122/72; PULSE 96; RESP 16; TEMP 36.2; O2SAT 96
[2023-01-10 14:04] LABS: Calcium 9.2 mg/dL (8.5-10.5)
[2023-01-10] MEDS: denosumab 60 mg SDV SUBCUT (14:12)
== END 2023-02-01 23:59 | disposition home or self-care (01) ==
LOC: ONCMED 12:30
PROVIDERS: PCP Family Medicine; Visit Provider Nurse Practitioner
DX: M81.0 Age-related osteoporosis without current pathological fracture (principal)
CPT/HCPCS: 36415; 82310; 96372; J0897

== ENCOUNTER 2023-02-02 06:00 | Outpatient (RCR) | payer MEDICARE, SELFPAY | END 2023-03-03 23:59 | disposition home or self-care (01) | LOC: SPT 06:00 | PROVIDERS: PCP Family Medicine; Visit Provider Neurological Surgery | DX: Z98.1 Arthrodesis status (principal) | CPT/HCPCS: 97110 ==

== ENCOUNTER 2023-03-04 06:00 | Outpatient (RCR) | payer MEDICARE, SELFPAY | END 2023-03-23 23:59 | disposition home or self-care (01) | LOC: SPT 06:00 | PROVIDERS: PCP Family Medicine; Visit Provider Neurological Surgery | DX: Z98.1 Arthrodesis status (principal) | CPT/HCPCS: 97110 ==

== ENCOUNTER 2023-06-13 10:07 | Outpatient (CLI) | payer MEDICARE, OTHER, SELFPAY ==
--- NOTE | 2023-06-13 10:14 | MM_ITS ---
WS: [id number] BILATERAL SCREENING DIGITAL TOMOSYNTHESIS MAMMOGRAM WITH CAD HISTORY: SCREENING COMPARISON: 06/07/2021 and 02/12/2019 Bilateral CC and MLO views with tomosynthesis and synthetic mammography submitted. Computer aided det ection analyzed. Breast composition: There are scattered areas of fibroglandular density. No suspicious masses, microc alcifications or architectural distortion. Benign bilateral breast calcifications. IMPRESSION: MM/[place] [id number] BI-RADS: 2-Benign FOLLOW UP: 1 Year Follow-up
== END 2023-06-13 10:08 | disposition home or self-care (01) ==
PROVIDERS: PCP Family Medicine; Visit Provider Family Medicine
DX: Z12.31 Encounter for screening mammogram for malignant neoplasm of breast (principal)
CPT/HCPCS: 77063; 77067